=== PATIENT | female | born 1950 | race Caucasian/White ===

== ENCOUNTER → 2017-04-23 | Outpatient (CLI) | payer BC, MEDICARE ==
--- NOTE | 2017-04-23 14:33 | MM ---
Reason for exam: screening (asymptomatic). Last mammogram was performed 3 years and 6 months ago. History: Patient is postmenopausal. Family history of breast cancer in aunt. Took estrogen for 13 years. Physical Findings: A clinical breast exam by your physician is recommended on an annual basis and results should be correlated with mammographic findings. MG 3D Screening Mammo W/Cad Bilateral CC and MLO view(s) were taken. Prior study comparison: October 11, 2013, bilateral digital screening mammo w/CAD. February 02, 2007, bilateral screening mammogram w/CAD. There are scattered fibroglandular densities. There is no discrete abnormality. No significant changes when compared with prior studies. ASSESSMENT: Negative, BI-RAD 1 RECOMMENDATION: Routine screening mammogram of both breasts in 1 year.
== END | disposition home or self-care (01) ==
LOC: RADMAMWWP 07:10
PROVIDERS: ATTEND Family Medicine
DX: Z12.31 Encounter for screening mammogram for malignant neoplasm of breast (principal)
CPT/HCPCS: 77063; G0202

== ENCOUNTER → 2017-05-22 | Outpatient (CLI) | payer MEDICARE ==
[2017-05-22 09:13] LABS: Blood Urea Nitrogen 13 mg/dL (7-17); Non-African American GFR(MDRD) >60 (>60 ml/min/1.73 sqM)
--- NOTE | 2017-05-22 10:39 | MR ---
EXAMINATION TYPE: MR brain and iac wo/w con DATE OF EXAM: 05/22/2017 COMPARISON: NONE HISTORY: acoustic nerve disorder, tinnitus, hearing loss left CONTRAST: Performed utilizing 15 mL intravenous MultiHance gadolinium contrast. TECHNIQUE: Multiplanar, multiecho imaging on a 3.0 Katie magnet is performed through the brain. Atte ntion is paid to the internal auditory canals with thin section imaging. Postcontrast imaging is per formed through the internal auditory canals. FINDINGS: Craniovertebral junction is normal. The pituitary is normal. Diffusion-weighted imaging is performed. No suspicious hyperintensity is present to suggest an acute intracranial infarct or acute ischemic area. Signal within the brain has scattered areas of hyperintensity which are non-specific but could be rel ated to microvascular ischemic changes. These appear greater within the deep white matter of the fron celena lobes and in the coronal radiata bilaterally. Differential diagnosis could include microvascular ischemic change, multiple sclerosis, vasculitis, Lyme disease. Thin section imaging is performed through the internal auditory canals and cerebellar pontine angles. No cerebellar pontine angle masses are evident. The internal auditory canals appear normal without expansion or erosion. Mastoid air cells appear clear. Postcontrast imaging was performed. No suspicious enhancement is evident within the internal audito ry canals or the included portions of the brain. IMPRESSIONS: 1. Normal internal auditory canals. 2. Multiple deep white matter changes in the frontal regions and boateng radiata bilaterally are nonsp ecific but most likely related to microvascular ischemic change.
== END | disposition home or self-care (01) ==
LOC: RADMRIMAIN 08:47
PROVIDERS: ATTEND Otolaryngology
DX: R90.82 White matter disease, unspecified (principal); H93.12 Tinnitus, left ear; H91.92 Unspecified hearing loss, left ear; H93.3X2 Disorders of left acoustic nerve
CPT/HCPCS: 82565; 84520; 70553; 36415; A9577

== ENCOUNTER → 2017-08-18 | Outpatient (CLI) | payer MEDICARE ==
--- NOTE | 2017-08-18 14:13 | US ---
EXAMINATION TYPE: US carotid duplex BILAT DATE OF EXAM: 08/18/2017 COMPARISON: NONE CLINICAL HISTORY: R42 DIZZINESS,H90.0 HEARING LOSS. Dizziness, hearing loss, TIA x few months, no HTN EXAM MEASUREMENTS: RIGHT: Peak Systolic Velocity (PSV) cm/sec ----- Right CCA: 71.2 ----- Right ICA: 103.5 ----- Right ECA: 75.9 ICA/CCA ratio: 1.5 RIGHT: End Diastole cm/sec ----- Right CCA: 25.0 ----- Right ICA: 43.9 ----- Right ECA: 18.6 LEFT: Peak Systolic Velocity (PSV) cm/sec ----- Left CCA: 82.5 ----- Left ICA: 101.8 ----- Left ECA: 64.3 ICA/CCA ratio: 1.2 LEFT: End Diastole cm/sec ----- Left CCA: 27.4 ----- Left ICA: 42.2 ----- Left ECA: 13.4 VERTEBRALS (direction of flow): Right Vertebral: Antegrade Left Vertebral: Antegrade Rhythm: Normal IMPRESSION: Mild plaque noted right bulb. NO evidence of significant stenosis Criteria for Assigning % of Stenosis / Diameter reduction (Estimation based on the indirect measurements of the internal carotid artery velocities (ICA PSV). 1. Normal (no stenosis)=ICA PSV < 125 cm/s: ratio < 2.0: ICA EDV<40 cm/s. 2. Less than 50% stenosis=ICA PSV < 125 cm/s: ratio < 2.0: ICA EDV<40 cm/s. 3. 50 to 69% stenosis=ICA PSV of 125 to 230 cm/s: ration 2.0 ? 4.0: ICA EDV 40-100 cm/s. 4. Greater than 70% stenosis to near occlusion= ICA PSV > 230 cm/s: ratio > 4.0: ICA EDV > 100 cm/s. 5. Near occlusion= ICA PSV velocities may be low or undetectable: variable ratio and ICA EDV. 6. Total occlusion=unable to detect flow.
== END | disposition home or self-care (01) ==
LOC: RADUSWWP 10:14
PROVIDERS: ATTEND Psychiatry & Neurology Neurology
DX: R42 Dizziness and giddiness (principal); H90.0 Conductive hearing loss, bilateral; I77.89 Other specified disorders of arteries and arterioles
CPT/HCPCS: 93880

== ENCOUNTER → 2018-06-24 | Outpatient (CLI) | payer MEDICARE ==
--- NOTE | 2018-06-26 10:05 | MM ---
Reason for exam: screening (asymptomatic). Last mammogram was performed 1 year and 2 months ago. History: Patient is postmenopausal. Family history of breast cancer in aunt. Took estrogen for 13 years. Physical Findings: A clinical breast exam by your physician is recommended on an annual basis and results should be correlated with mammographic findings. MG 3D Screening Mammo W/Cad Bilateral CC and MLO view(s) were taken. Prior study comparison: April 23, 2017, bilateral MG 3d screening mammo w/cad. October 11, 2013, bilateral digital screening mammo w/CAD. There are scattered fibroglandular densities. There is chronic nodularity in the right breast. No significant changes when compared with prior studies. ASSESSMENT: Benign, BI-RAD 2 RECOMMENDATION: Routine screening mammogram of both breasts in 1 year.
== END | disposition home or self-care (01) ==
LOC: RADMAMWWP 14:06
PROVIDERS: ATTEND Family Medicine
DX: Z12.31 Encounter for screening mammogram for malignant neoplasm of breast (principal)
CPT/HCPCS: 77063; 77067

== ENCOUNTER → 2019-07-08 | Outpatient (CLI) | payer MEDICARE ==
--- NOTE | 2019-07-08 16:43 | US ---
EXAMINATION TYPE: US venous doppler duplex LE LT DATE OF EXAM: 07/08/2019 4:25 PM COMPARISON: NONE CLINICAL HISTORY: R60.0 Localized edema. Pt having swelling left leg/ pt has large, palpable lump upp er left leg near groin/ pt states being treated for lymphoma SIDE PERFORMED: Left TECHNIQUE: The lower extremity deep venous system is examined utilizing real time linear array sonog clau with graded compression, doppler sonography and color-flow sonography. VESSELS IMAGED: External Iliac Vein (EIV) Common Femoral Vein Deep Femoral Vein Greater Saphenous Vein * Femoral Vein Popliteal Vein Small Saphenous Vein * Proximal Calf Veins (* superficial vessels) Left Leg: Negative for DVT, Deep Fem vein unable to be visualized due to large cystic lesions within left groin, proximal fem vein only visualized with color doppler due to large cystic mass Two large cystic lesions within left groin 1)= 6.0 x 3.6 cm and 2)= 11.6 x 7.5 x 10.7 cm IMPRESSION: No evidence of deep venous thrombosis in the left femoral vein and popliteal vein. Left g roin region shows irregular large 6 x 4 cm cyst. There is a second large cyst that measures 11.5 x 7. 5 cm.
== END | disposition home or self-care (01) ==
LOC: RADUSWWP 15:57
PROVIDERS: ATTEND Family Medicine
DX: R60.0 Localized edema (principal)

== ENCOUNTER → 2019-07-16 | Outpatient (CLI) | payer MEDICARE ==
[~2019-07-16] MED LIST: SODIUM CHLORIDE 0.9% 500 ML 500 ML in EMPTY BAG 1 BAG IV PRN
[2019-07-16 08:45] VITALS: RESP 16
[2019-07-16 11:21] VITALS: BP 90/55; PULSE 81; TEMP 97.9
== END | disposition home or self-care (01) ==
LOC: PROCWHC3 08:23
PROVIDERS: ATTEND Internal Medicine Hematology & Oncology
DX: D64.81 Anemia due to antineoplastic chemotherapy (principal)
CPT/HCPCS: 86900; 86901; 86850; 86920; 36430; P9016; J1642

== ENCOUNTER 2019-07-17 02:03 | Inpatient (IN) | payer MEDICARE ==
[2019-07-17] MEDS ORDERED: POTASSIUM CHLORIDE 2 MEQ/ML 20 ML VIAL IVPB SCH (05:15)
[2019-07-17] MEDS ORDERED: MECLIZINE 25 MG TAB PO PRN (05:17)
[2019-07-17] MEDS ORDERED: HYDROcodone/APAP 5-325MG 1 EACH TAB PO PRN (05:17)
[2019-07-17] MEDS ORDERED: POTASSIUM CHLORIDE 100 ML IVPB SCH ×2 (06:00)
[2019-07-17] MEDS ORDERED: 0.9% NACL WITH KCL 20 MEQ/L 1,000 ML IV SCH (06:00)
[2019-07-17] MEDS: POTASSIUM CHLORIDE 20 MEQ in WATER FOR INJECTION 1 100ML.BAG IVPB SCH ×4 (06:10→14:23)
[2019-07-17] MEDS: POTASSIUM CHLORIDE ER 20 MEQ TAB.ER PO SCH ×4 (06:14→20:07)
[2019-07-17] MEDS ORDERED: PANTOPRAZOLE 40 MG TABLET PO SCH (07:30)
[2019-07-17 07:46] LABS: HCT 23.3 % (34.0-46.0); HGB 8.1 gm/dL (11.4-16.0); MCH 27.9 pg (25.0-35.0); MCHC 34.7 g/dL (31.0-37.0); MCV 80.4 fL (80.0-100.0); Mean Platelet Volume 7.1; Poikilocytosis Moderate; RDW 15.7 % (11.5-15.5)
[2019-07-17 07:55] LABS: ALT 31 U/L (9-52); AST 19 U/L (14-36); African American GFR (CKD) >90 (>60 ml/min/1.73 sqM); Albumin 2.3 g/dL (3.5-5.0); Alkaline Phosphatase 104 U/L (38-126); Anion Gap 7 mmol/L; Blood Urea Nitrogen 8 mg/dL (7-17); Calcium 7.4 mg/dL (8.4-10.2); Carbon Dioxide 27 mmol/L (22-30); Chloride 94 mmol/L (98-107); Glucose 90 mg/dL (74-99); Potassium 3.1 mmol/L (3.5-5.1); Sodium 128 mmol/L (137-145); Total Bilirubin 1.5 mg/dL (0.2-1.3); Total Protein 4.7 g/dL (6.3-8.2)
[2019-07-17 09:01] LABS: WBC 1.1 k/uL (3.8-10.6)
[2019-07-17] MEDS ORDERED: HYDROmorphone 0.5 MG/0.5 ML SYRINGE IVP PRN (13:26)
[2019-07-17 14:15] LABS: Anisocytosis (M) Present; Band Neutrophils % 2 %; Eosinophils # (M) 0.03 k/uL (0-0.7); Lymphocytes # (M) 0.34 k/uL (1.0-4.8); Monocytes # (M) 0.14 k/uL (0-1.0); Neutrophils % (M) 51 %; Nucleated Red Blood Cells 0 /100 WBC (0-0); Total Cells Counted 100
[2019-07-17 14:18] LABS: Platelet Count 48 k/uL (150-450); Polychromasia Present
[2019-07-17] MEDS: CEFEPIME 2 GM in SODIUM CHLORIDE 0.9% 100 ML IVPB SCH ×2 (14:32→22:48)
[2019-07-17 14:34] LABS: INR 1.1 (<1.2); Prothrombin Time 11.3 sec (9.0-12.0)
[2019-07-17 14:47] LABS: Anisocytosis Slight; Basophils % (A) 0 %; Eosinophils % (A) 1 %; HCT 23.1 % (34.0-46.0); Lymphocytes # (A) 0.3 k/uL (1.0-4.8); Lymphocytes % (A) 21 %; MCH 27.7 pg (25.0-35.0); MCHC 34.6 g/dL (31.0-37.0); MCV 80.1 fL (80.0-100.0); Mean Platelet Volume 7.4; Monocytes # (A) 0.1 k/uL (0-1.0); Monocytes % (A) 5 %; Neutrophils % (A) 70 %; Poikilocytosis Moderate; RBC 2.89 m/uL (3.80-5.40); RDW 16.2 % (11.5-15.5)
[2019-07-17 14:51] LABS: WBC 1.4 k/uL (3.8-10.6)
[2019-07-17 14:52] LABS: Platelet Count 55 k/uL (150-450)
--- NOTE | 2019-07-17 15:10 | XR ---
EXAMINATION TYPE: XR chest 1V portable DATE OF EXAM: 07/17/2019 COMPARISON: NONE HISTORY: Short of breath TECHNIQUE: Single frontal view of the chest is obtained. FINDINGS: Heart and mediastinum are normal. Lungs are clear. There is right central venous catheter with the tip in the superior vena cava. There are chest leads. IMPRESSION: No active cardiopulmonary disease. Normal heart.
[2019-07-17] MEDS: ONDANSETRON 4 MG/2 ML VIAL IVP PRN (15:37)
[2019-07-17] MEDS: HEPARIN SODIUM,PORCINE 5,000 UNIT/ML 1 ML VIAL SQ SCH ×2 (15:40→20:07)
[2019-07-17] MEDS ORDERED: SODIUM CHLORIDE 0.9% 500 ML 500 ML IV ONE (16:23)
[2019-07-17] MEDS: 0.9% NACL WITH KCL 40 MEQ/L 1,000 ML IV SCH ×2 (16:28→22:49)
[2019-07-17 16:41] LABS: Potassium 3.3 mmol/L (3.5-5.1)
--- NOTE | 2019-07-17 17:13 | HP ---
HISTORY AND PHYSICAL CHIEF COMPLAINTS: Low blood pressure and weakness. HISTORY OF PRESENT ILLNESS: This 69-year-old woman with a past medical history of multiple medical problems, including recently diagnosed large B-cell lymphoma, history of appendectomy, history of tonsillectomy, was receiving chemotherapy. The patient had her last chemotherapy on July 07 and subsequently the patient was complaining of weakness and low blood pressure. Patient presented at [facility], where her blood pressure was found to be in the 70s systolic and hemoglobin was 7.2. The patient was transfused. Potassium is 2.3 with hypokalemia. The patient was subsequently transferred to [facility] as a direct admission for further evaluation and treatment. The patient received one unit of transfusion as an outpatient and subsequently 2 units of blood transfusion. The current hemoglobin is 8.1. White count is 1.1. There is no history of any fever, rigor or chills. No history of headache, loss of consciousness, seizures, chest pain, palpitations at this time PAST MEDICAL HISTORY: 1. Recent diagnosis of large B-cell lymphoma with chemotherapy. 2. History of appendectomy. 3. Hysterectomy. HOME MEDICATIONS: 1. Loratadine 10 mg p.o. daily. 2. Probiotic 1 p.o. daily. 3. Antivert 25 mg t.i.d. p.r.n. 4. Ibuprofen 200 mg q.4 p.r.n. 5. Aspirin 81 mg p.o. daily. 6. Augmentin 875 mg 1 p.o. b.i.d. ALLERGIES: NONE. FAMILY HISTORY: No history of heart disease or strokes in the family. SOCIAL HISTORY: Previous history of smoking. No current smoking or alcohol intake. REVIEW OF SYSTEMS: ENT: No diminished hearing. No diminished vision. CARDIOVASCULAR SYSTEM: No angina, palpitations. RESPIRATORY SYSTEM: No cough, hemoptysis. GI: No nausea, vomiting. : No dysuria or retention. NERVOUS SYSTEM: As mentioned earlier. ALLERGY/IMMUNOLOGY: No asthma, hayfever. MUSCULOSKELETAL: As mentioned earlier. HEMATOLOGY/ONCOLOGY: As mentioned earlier. ENDOCRINE: No diabetes, hypothyroidism. CONSTITUTIONAL: As mentioned earlier. DERMATOLOGY: Negative. RHEUMATOLOGY: Negative. PSYCHIATRY: As mentioned earlier. PHYSICAL EXAMINATION: Patient alert and oriented x3. Pulse 73, blood pressure 91/53, respiration 18, temperature 97.8, pulse ox 98% on room air. HEENT: Conjunctivae normal. Oral mucosa moist. NECK: No jugular venous distention. No carotid bruit. No lymph node enlargement. CARDIOVASCULAR SYSTEM: S1, S2 muffled. No S3. No S4. RESPIRATORY SYSTEM: Breath sounds diminished at the bases. Scattered rhonchi and crackles. ABDOMEN: Soft, non-tender. No mass palpable. LEGS: No edema. No swelling. NERVOUS SYSTEM: Higher functions as mentioned earlier. Moves all 4 limbs. No focal motor or sensory deficit. LYMPHATICS: No lymph node palpable in neck, axillae or groin. SKIN: No ulcer, rash, bleeding. JOINTS: No active deforming arthropathy. LABS: WBC 1.4, hemoglobin 8, platelets 55. Magnesium is 1.5. ASSESSMENT: 1. Hypotension and weakness, possibly neutropenic sepsis. 2. Severe pancytopenia, possibly secondary to chemotherapy. 3. Severe leukopenia and neutropenia. 4. Hyponatremia. 5. Hypokalemia. 6. History of non-Hodgkin's lymphoma, B-cell lymphoma, on chemotherapy. 7. Hypomagnesemia. 8. Hypotension for evaluation. 9. Remote history of nicotine dependence. RECOMMENDATIONS AND DISCUSSION: In this 69-year-old woman who presented with multiple complex medical issues, we will monitor the patient closely, continue the current medications, continue symptomatic treatment, continue the broad-spectrum IV antibiotics, cultures. I recommend hematology/oncology and infectious disease evaluations. Also check a random cortisol. Prognosis is guarded because of multiple complex medical issues. Further recommendations to follow. IV fluids, bolus fluids to maintain the blood pressure. DVT prophylaxis. Proton pump inhibitors. Further recommendations to follow. MMODL / IJN: [id number] /
[2019-07-17] MEDS ORDERED: Potassium Replacement Protocol 1 EACH MISC MISCELLANE PRN (18:14)
[2019-07-17 19:50] LABS: Appearance,Urine Clear (Clear); Bilirubin,Urine Negative (Negative); Blood,Urine Negative (Negative); Color,Urine Yellow; Glucose,Urine (UA) Negative (Negative); Ketones,Urine Negative (Negative); Leukocyte Esterase,Urine Negative (Negative); Nitrite,Urine Negative (Negative); PH, Urine 6.5 (5.0-8.0); Protein,Urine Negative (Negative); Specific Gravity,Urine 1.006 (1.001-1.035); Urobilinogen,Urine <2.0 mg/dL (<2.0)
[2019-07-17] MEDS: PANTOPRAZOLE 40 MG/10 ML VIAL IVP SCH (20:07)
[2019-07-17] MEDS: TEMAZEPAM 15 MG CAP PO PRN (22:47)
--- NOTE | 2019-07-18 00:21 | P.CONS ---
History of Present Illness - Reason for Consult Consult date: 07/17/19 NHL on chemotherapy, hypotension, cytopenias - History of Present Illness Ms. Arredondo is a 69 yr old white female, in overall good health at baseline. The patient had felt a lump just above her right collarbone, as well as another lump in the left upper thigh, in early 05/17. These seem to increased progressively in size. Around the same time she also developed progressive symptoms of fatigue, sweats, and decreased appetite. She was seen by her primary care physician and referred to Dr. benson. She had an excisional biopsy on 05/14/19 at both sites. The right supraclavicular node showed replacement by necrotic nonviable tissue possible diffuse large B-cell lymphoma. 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 Flow cytometric analysis confirmed the presence of CD19, CD20 and CD10 positive lymphocytic population. MYC testing was ordered and came back negative ruling out doublet/triple hit pathology. The patient had a PET scan done on 06/15/19, they showed multiple areas of uptake, including bilateral submandibular, bilateral supraclavicular, bilateral axillary, mediastinal, spleen, retrocrural and retroperitoneal as well as pelvic and inguinal. Multiple hypermetabolic foci were seen along the sternum ,. Osseous involvement was also noted in the left anterior mid rib and right humeral head. The patient was seen in the office initially on 06/18/19. She underwent port placement and echocardiogram and then started Rituxan-CHOP on 07/17/19. She is status post 1 cycle. The time of her initial consult, the patient had already had a significant drop in her for status, and had developed significant anemia due to the lymphoma. Since starting chemotherapy, her counts have declined further, as expected and she has required transfusion support. She has also been noted to be hypotensive off-and-on. The patient was noted to be hypotensive again while receiving a blood transfusion, on 07/16/19. There was significant weakness and fatigue, when there was no major change from her baseline. She received additional fluids after transfusion and was sent home. However at home her blood pressure remained low, going down into the 60s systolic according to her. She therefore came back to the emergency room where she was also noted to have marked neutropenia, and other electrolyte abnormalities. She was therefore admitted for further management Review of Systems Constitutional: Reports fatigue, Reports weakness Eyes: denies blurred vision, denies pain Ears: deny: decreased hearing, ear discharge, earache, tinnitus Ears, nose, mouth and throat: Denies headache, Denies sore throat Cardiovascular: Reports decreased exercise tolerance Respiratory: Denies cough Gastrointestinal: Reports diarrhea Genitourinary: Denies dysuria, Denies hematuria Menstruation: Reports postmenopausal Musculoskeletal: Reports muscle weakness Integumentary: Denies pruritus, Denies rash Neurological: Reports weakness Psychiatric: Denies anxiety, Denies depression Endocrine: Reports fatigue, Reports weight change Hematologic/Lymphatic: Reports as per HPI Past Medical History Past Medical History: Cancer Additional Past Medical History / Comment(s): Large B-cell Lymphoma History of Any Multi-Drug Resistant Organisms: None Reported Past Surgical History: Appendectomy, Hysterectomy, Tonsillectomy Past Anesthesia/Blood Transfusion Reactions: No Reported Reaction Past Psychological History: No Psychological Hx Reported Smoking Status: Former smoker Medications and Allergies Home Medications Medication Instructions Recorded Confirmed Type Aspirin [Adult Low Dose Aspirin EC] 81 mg PO DAILY 07/06/19 07/17/19 History Ibuprofen 200 mg PO Q4H PRN 07/06/19 07/17/19 History L.acidoph,Paracasei, B.lactis 1 cap PO DAILY 07/06/19 07/17/19 History [Probiotic] Loratadine 10 mg PO DAILY 07/06/19 07/17/19 History Meclizine [Antivert] 25 mg PO TID PRN 07/06/19 07/17/19 History Amoxic-Pot Clav 875-125Mg 1 tab PO BID 07/17/19 07/17/19 History [Augmentin 875-125] Allergies Allergy/AdvReac Type Severity Reaction Status Date / Time No Known Allergies Allergy Verified 07/17/19 08:47 Physical Exam Vitals: Vital Signs Temp Pulse Resp BP BP BP BP 07/17/19 23:22 74 18 07/17/19 23:20 98.0 F 74 18 108/56 07/17/19 20:00 98.2 F 75 18 115/57 113/56 101/55 07/17/19 17:32 116/63 114/62 87/50 07/17/19 16:00 75 17 87/50 10/19/19 12:00 77 17 82/51 10/19/19 08:30 97.8 F 73 18 91/53 07/17/19 05:33 90/53 07/17/19 04:49 97.8 F 73 18 82/51 07/17/19 04:40 73 18 Pulse Ox 07/17/19 23:22 07/17/19 23:20 98 07/17/19 20:00 96 07/17/19 17:32 07/17/19 16:00 96 07/17/19 12:00 96 07/17/19 08:30 98 07/17/19 05:33 07/17/19 04:49 97 07/17/19 04:40 Intake and Output 07/17/19 07/17/19 07/18/19 14:59 22:59 06:59 Intake Total 1500 360 800 Balance 1500 360 800 Intake: Intake, IV Titration 900 800 Amount 0.9% NaCl with KCl 20 Meq 700 /l 1,000 ml @ 100 mls/hr IV .Q10H PRIETO Rx#: [id number] 0.9% NaCl with KCl 40 Meq 800 /l 1,000 ml @ 100 mls/hr IV .Q10H PRIETO Rx#: [id number] Cefepime 2 gm In Sodium 100 Chloride 0.9% 100 ml @ 200 mls/hr IVPB Q8HR PRIETO Rx#:[id number] Potassium Chloride 100 ml 100 @ 50 mls/hr IVPB Q2H PRIETO Rx#:[id number] Oral 600 360 Other: Voiding Method Toilet Toilet # Voids 1 1 1 # Bowel Movements 1 - Constitutional General appearance: no acute distress - EENT Eyes: EOMI, PERRLA ENT: hearing grossly normal, normal oropharynx - Neck Neck: lymphadenopathy Thyroid: bilateral: normal size - Respiratory Respiratory: bilateral: CTA - Cardiovascular Rhythm: regular Heart sounds: normal: S1, S2 - Gastrointestinal General gastrointestinal: normal bowel sounds, soft - Integumentary Integumentary: normal - Neurologic Neurologic: CNII-XII intact - Musculoskeletal Musculoskeletal: generalized weakness, strength equal bilaterally - Psychiatric affect slightly slow Psychiatric: A&O x's 3 Results CBC & Chem 7: 07/17/19 14:08 07/17/19 16:19 Labs: Abnormal Lab Results - Last 24 Hours (Table) 07/17/19 07/17/1919 Range/Units 06:57 06:57 14:08 WBC 1.1 L* (3.8-10.6) k/uL RBC 2.90 L (3.80-5.40) m/uL Hgb 8.1 L D (11.4-16.0) gm/dL Hct 23.3 L (34.0-46.0) % RDW 15.7 H (11.5-15.5) % Plt Count 48 L D (150-450) k/uL Neutrophils # (1.3-7.7) k/uL Neutrophils # (Manual) 0.50 L (1.3-7.7) k/uL Lymphocytes # (1.0-4.8) k/uL Lymphocytes # (Manual) 0.34 L (1.0-4.8) k/uL Sodium 128 L (137-145) mmol/L Potassium 3.1 L (3.5-5.1) mmol/L Chloride 94 L (98-107) mmol/L Creatinine 0.38 L (0.52-1.04) mg/dL Calcium 7.4 L (8.4-10.2) mg/dL Magnesium 1.4 L (1.6-2.3) mg/dL Total Bilirubin 1.5 H (0.2-1.3) mg/dL Total Protein 4.7 L (6.3-8.2) g/dL Albumin 2.3 L (3.5-5.0) g/dL 07/17/19 07/17/19 Range/Units 14:08 16:19 WBC 1.4 L* (3.8-10.6) k/uL RBC 2.89 L (3.80-5.40) m/uL Hgb 8.0 L (11.4-16.0) gm/dL Hct 23.1 L (34.0-46.0) % RDW 16.2 H (11.5-15.5) % Plt Count 55 L (150-450) k/uL Neutrophils # 1.0 L (1.3-7.7) k/uL Neutrophils # (Manual) (1.3-7.7) k/uL Lymphocytes # 0.3 L (1.0-4.8) k/uL Lymphocytes # (Manual) (1.0-4.8) k/uL Sodium (137-145) mmol/L Potassium 3.3 L (3.5-5.1) mmol/L Chloride (98-107) mmol/L Creatinine (0.52-1.04) mg/dL Calcium (8.4-10.2) mg/dL Magnesium (1.6-2.3) mg/dL Total Bilirubin (0.2-1.3) mg/dL Total Protein (6.3-8.2) g/dL Albumin (3.5-5.0) g/dL Assessment and Plan (1) Hypotension Narrative/Plan: Etiology of this is somewhat unclear. Though hypertension has been fairly significant off-and-on, there has not been much change in the patient's actual s ymptoms from baseline. Her baseline blood pressure has often been in the 80s- 90s range. Lower blood pressures have been noted when the patient has been anemic and required blood transfusion. It didn't seems to improve back to baseline over 24-48 hours after transfusion and hydration This is more likely due to symptoms of lymphoma causing increase permeability and third spacing. The patient does not appear to have any evidence of infection. He has received blood transfusion, and hydration with improvement in blood pressure already. - Cortisol level - Assuming she remains stable, she can be discharged wheSnever felt to be okay by the admitting service Current Visit: Yes Status: Acute Code(s): I95.9 - HYPOTENSION, UNSPECIFIED SNOMED Code(s): 76607157 (2) Electrolyte abnormality Narrative/Plan: The patient has low sodium and potassium, which most likely represents dehydration, as she has been having diarrhea. Oral intake had been diminished significantly bleeding upper diagnosis low has been improving since. The papi ent is being supplemented with IV fluids and potassium. He is also being monitored as an outpatient and will be supplemented as needed Current Visit: Yes Status: Acute Code(s): E87.8 - OTH DISORDERS OF ELECT ROLYTE AND FLUID BALANCE, NEC SNOMED Code(s): 349545611 (3) Pancytopenia Narrative/Plan: Due to underlying lymphoma, as well as chemotherapy effect. Posttransfusion hemoglobin is in a safe range. Platelets are 70,000, also in a safe range. As a bruise he remains diminished about 10 days post chemotherapy, she will be started on growth factors Current Visit: Yes Status: Acute Code(s): D61.818 - OTHER PANCYTOPENIA SNOMED Code(s): 063696697 (4) Non-Hodgkin lymphoma Narrative/Plan: Diagnostic and therapeutic circumstances as described. The patient will continue on chemotherapy as an outpatient, assuming acute complains are sufficiently improved. I would anticipate that her current issues are likely to improve, as the patient seems degree of remission with her lymphoma with treatment Current Visit: Yes Status: Acute Code(s): C85.90 - NON-HODGKIN LYMPHOMA, UNSPECIFIED, UNSPECIFIED SITE SNOMED Code(s): 182750392
[2019-07-18 06:42] LABS: Anisocytosis Slight; Basophils % (A) 1 %; Eosinophils % (A) 1 %; HCT 24.9 % (34.0-46.0); HGB 8.2 gm/dL (11.4-16.0); Hypochromasia Slight; Lymphocytes # (A) 0.3 k/uL (1.0-4.8); Lymphocytes % (A) 13 %; MCH 27.4 pg (25.0-35.0); MCHC 33.1 g/dL (31.0-37.0); MCV 82.8 fL (80.0-100.0); Mean Platelet Volume 7.4; Monocytes # (A) 0.1 k/uL (0-1.0); Monocytes % (A) 6 %; Neutrophils # (A) 1.6 k/uL (1.3-7.7); Neutrophils % (A) 78 %; Poikilocytosis Moderate; RBC 3.01 m/uL (3.80-5.40); RDW 16.9 % (11.5-15.5); WBC 2.1 k/uL (3.8-10.6)
[2019-07-18 06:51] LABS: Platelet Count 96 k/uL (150-450)
[2019-07-18 07:00] LABS: African American GFR (CKD) >90 (>60 ml/min/1.73 sqM); Anion Gap 5 mmol/L; Blood Urea Nitrogen 3 mg/dL (7-17); Calcium 7.4 mg/dL (8.4-10.2); Carbon Dioxide 25 mmol/L (22-30); Chloride 104 mmol/L (98-107); Glucose 80 mg/dL (74-99); Potassium 3.6 mmol/L (3.5-5.1); Sodium 134 mmol/L (137-145)
[2019-07-18] MEDS: PANTOPRAZOLE 40 MG/10 ML VIAL IVP SCH ×2 (07:57→20:08)
[2019-07-18] MEDS: HEPARIN SODIUM,PORCINE 5,000 UNIT/ML 1 ML VIAL SQ SCH ×2 (07:57→20:07)
[2019-07-18] MEDS: CEFEPIME 2 GM in SODIUM CHLORIDE 0.9% 100 ML IVPB SCH ×3 (07:58→23:47)
[2019-07-18] MEDS: FILGRASTIM-SNDZ 300 MCG/0.5 ML SYRINGE SQ SCH (07:59)
[2019-07-18] MEDS: 0.9% NACL WITH KCL 40 MEQ/L 1,000 ML IV SCH ×2 (08:53→20:10)
--- NOTE | 2019-07-18 09:00 | ECHOF ---
Referral Reason:chf MEASUREMENTS -------- HEIGHT: 167.6 cm WEIGHT: 68.5 kg BP: 91/53 IVSd: 1.2 cm (0.6 - 1.1) LVIDd: 4.4 cm (3.9 - 5.3) LVPWd: 1.1 cm (0.6 - 1.1) IVSs: 1.5 cm LVIDs: 2.9 cm LVPWs: 1.5 cm LA Diam: 4.1 cm (2.7 - 3.8) RVIDd: 3.3 cm (< 3.3) LAESV Index (A-L): 36.06 ml/m Ao Diam: 3.7 cm (2.0 - 3.7) AV Cusp: 2.4 cm (1.5 - 2.6) EPSS: 0.6 cm MV E Dami: 0.94 m/s MV DecT: 193 ms MV A Dami: 0.97 m/s MV E/A Ratio: 0.97 RAP: 5.00 mmHg RVSP: 27.93 mmHg MV EF SLOPE: 84.40 mm/s (70 - 150) MV EXCURSION: 16.31 mm (> 18.000) TAPSE: 20.50 mm FINDINGS -------- Sinus rhythm. This was a technically good study. The left ventricular size is normal. There is borderline concentric left ventricular hypertrophy. Overall left ventricular systolic function is normal with, an EF between 60 - 65 %. The diastolic filling pattern is normal for the age of the patient 11.88. Small echogenic structure in LV The right ventricle is mildly enlarged. LA is moderately dilated 34-39 ml/m2 The right atrium is normal in size. Prominent Eustachian valve Interatrial and interventricular septum intact. There is mild aortic valve sclerosis. The mitral valve leaflets are mildly thickened. Mild mitral annular calcification present. Mild m itral regurgitation is present. Mild tricuspid regurgitation present. Right ventricular systolic pressure is normal at < 35 mmHg. Trace/mild (physiologic) pulmonic regurgitation. The aortic root size is normal. Normal inferior vena cava with normal inspiratory collapse consistent with estimated right atrial pre ssure of 5 mmHg. There is no pericardial effusion. CONCLUSIONS -------- 1. Sinus rhythm. 2. This was a technically good study. 3. The left ventricular size is normal. 4. There is borderline concentric left ventricular hypertrophy. 5. Overall left ventricular systolic function is normal with, an EF between 60 - 65 %. 6. The diastolic filling pattern is normal for the age of the patient 11.88 7. Small echogenic structure in LV 8. The right ventricle is mildly enlarged. 9. LA is moderately dilated 34-39 ml/m2 10. The right atrium is normal in size. 11. Prominent Eustachian valve 12. Interatrial and interventricular septum intact. 13. There is mild aortic valve sclerosis. 14. The mitral valve leaflets are mildly thickened. 15. Mild mitral annular calcification present. 16. Mild mitral regurgitation is present. 17. Mild tricuspid regurgitation present. 18. Right ventricular systolic pressure is normal at < 35 mmHg. 19. Trace/mild (physiologic) pulmonic regurgitation. 20. The aortic root size is normal. 21. Normal inferior vena cava with normal inspiratory collapse consistent with estimated right atrial pressure of 5 mmHg. 22. There is no pericardial effusion. AIR CONDITIONING ENGINEER: Savanna Bishop RDCS
[2019-07-18] MEDS ORDERED: Magnesium Replacement Protocol 1 EACH MISC MISCELLANE PRN (11:27)
[2019-07-18] MEDS: MAGNESIUM SULFATE-D5W PMX 1 GM in DEXTROSE/WATER 1 100ML.BAG IVPB SCH ×2 (11:56→13:04)
[2019-07-18] MEDS: ONDANSETRON 4 MG/2 ML VIAL IVP PRN (16:46)
--- NOTE | 2019-07-18 20:21 | PN ---
PROGRESS NOTE DATE OF SERVICE: 07/18/2019 This 69-year-old woman was admitted with hypotension, weakness, is being closely monitored. Suspect neutropenic sepsis. Patient on broad spectrum IV antibiotics. Cultures are negative. After transfusion hemoglobin is 8.2 at this time. White count is also 2.1, platelets are 226. Dr. Alcala is following the patient closely. PAST MEDICAL HISTORY: Reviewed. REVIEW OF SYSTEMS: CARDIOVASCULAR: No angina. RESPIRATORY: As mentioned earlier. : No hematuria. NERVOUS SYSTEM: Generalized weakness. CURRENT MEDICATIONS: 1. [place] 5 mg q.6h p.r.n. 2. Cefepime 2 g IV q.8h. 3. Zarxio 300 mcg daily. 4. Heparin 5 subcu b.i.d. 5. Dilaudid 0.5 mg q.6. 6. Antivert 25 mg p.o. daily. 7. Potassium, magnesium protocol. 8. Protonix. 9. Restoril. PHYSICAL EXAM: Patient is alert and oriented x3. Pulse is 78, blood pressure 113/50, respiration 18, temperature 97.9, pulse ox 97% on room air. HEENT: Conjunctivae normal. Oral mucosa moist. NECK: No jugular venous distention. No lymph node enlargement. CARDIOVASCULAR: S1, S2. RESPIRATORY: Diminished breath sounds at the bases. Bilateral scattered rhonchi and crackles. ABDOMEN: Soft, nontender. LEGS: No swelling. NERVOUS SYSTEM: No focal deficits. LABS: At this time shows WBC 2.1, hemoglobin is 8.2, platelets 96. Sodium 134. ASSESSMENT: 1. Hypotension and weakness, possibly neutropenic sepsis. 2. Severe pancytopenia, possibly secondary to chemotherapy. 3. Severe leukopenia and neutropenia. 4. Hyponatremia. 5. Hypokalemia. 6. History of non-Hodgkin lymphoma, B-cell lymphoma on chemotherapy. 7. Hypomagnesemia. 8. Remote history of nicotine dependence. RECOMMENDATIONS AND DISCUSSION: I recommend to continue current management and continue symptomatic treatment, continue broad-spectrum IV antibiotics, continue with IV fluids. Repeat labs. White count has been improving and hemoglobin is stable as mentioned earlier. Closely follow with Dr. Alcala. Prognosis guarded because of multiple complex medical issues. Increase ambulation. Discussed with the patient. DVT prophylaxis. Further recommendations to follow. MMODL / IJN: [id number] /
--- NOTE | 2019-07-18 22:01 | P.CONS ---
History of Present Illness - Reason for Consult Consult date: 07/18/19 - Chief Complaint Weakness - History of Present Illness Pleasant 69-year-old woman who has a very pertinent recent past medical history in that she during the summer noticed evidence of lumps on her body. One was on the right collarbone and was on the left side. These increased in size the papi ent was symptomatic with fatigue chills and sweats decreased appetite and some weight loss. 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 Her PET scan that was done in May showed evidence of multiple areas of involvement including the spleen and there was also bony involvement to the left anterior ribs and right humeral head. The patient was initiated to her course of Rituxan -CHOP. The patient presents with extreme weakness and generalized malaise and evidence of chemotherapy and possibly disease induced neutropenia. She feels better since coming to Hospital receiving fluids and having her electrolytes replaced. She denies fevers chills rigors or sweats at this time Review of Systems Patient has significant fatigue and malaise HEENT:Denies headache or acute visual change. Denies sinus or mouth discomforts. Denies neck stiffness or pain. Denies significant oral cavity pain. Denies difficulty on swallowing. Lungs: She has felt short of breath but however she is not evidence of costovertebral production or hemoptysis Cardiovascular: Denies significant shortness of breath, chest pain, chest wall pain, orthopnea, dyspnea on exertion, syncope Gastrointestinal:Denies nausea, vomiting, diarrhea, constipation, hematemesis, melena, hematochezia. No no significant change of bowel habit noticed. Musculoskeletal: denies significant myalgias or arthralgias. No new joint swelling. Denies new back pain. Skin: Denies new rash or lesions. No new ulcers or wounds are related.. Neuro: Denies headache or visual change. Denies any new onset weakness or difficulty with ambulation. Denies falls or seizures. Psychiatric: Very concerned with her recent medical diagnosis Endocrine: Severe fatigue and started to have some weight loss Past Medical History Past Medical History: Cancer Additional Past Medical History / Comment(s): Large B-cell Lymphoma History of Any Multi-Drug Resistant Organisms: None Reported Past Surgical History: Appendectomy, Hysterectomy, Tonsillectomy Past Anesthesia/Blood Transfusion Reactions: No Reported Reaction Past Psychological History: No Psychological Hx Reported Additional Psychological History / Comment(s): She is a retired executive secretary. 2 pet cats. History of travel nothing is recent. Stopped smoking years ago. Smoking Status: Former smoker Medications and Allergies Home Medications and Allergies Comment(s): Current Medications Hydrocodone Bitart/Acetaminophen (Liberal 5-325) 1 each PO Q6HR PRN PRN Reason: Moderate to Severe Pain Filgrastim (Zarxio) 300 mcg SQ DAILY [facility] Last Admin: 07/18/19 07:59 Dose: 300 mcg Documented by: Heparin Sodium (Porcine) (Heparin) 5,000 unit SQ Q12HR PRIETO Last Admin: 07/18/19 20:07 Dose: 5,000 unit Documented by: Hydromorphone HCl (Dilaudid) 0.5 mg IVP Q6HR PRN PRN Reason: Severe Pain Cefepime HCl 2 gm/ Sodium (Chloride) 100 mls @ 200 mls/hr IVPB Q8HR [facility] Last Admin: 07/18/19 15:27 Dose: 200 mls/hr Documented by: Potassium Chloride/Sodium Chloride (Ns-Kcl 40 Meq/L Iv Solution) 1,000 mls @ 100 mls/hr IV .Q10H [facility] Last Admin: 07/18/19 20:10 Dose: 100 mls/hr Documented by: Meclizine HCl (Antivert) 25 mg PO DAILY PRN PRN Reason: dizziness Miscellaneous Information (Potassium Per Protocol) 1 each MISCELLANE DAILY PRN; Protocol PRN Reason: Per Protocol Miscellaneous Information (Magnesium Per Protocol) 1 each MISCELLANE DAILY PRN; Protocol PRN Reason: Per Protocol Ondansetron HCl (Zofran) 4 mg IVP Q6HR PRN PRN Reason: Nausea And Vomiting Last Admin: 07/18/19 16:46 Dose: 4 mg Documented by: Pantoprazole Sodium (Protonix) 40 mg IVP BID PRIETO Last Admin: 07/18/19 20:08 Dose: 40 mg Documented by: Temazepam (Restoril) 15 mg PO HS PRN PRN Reason: Insomnia Last Admin: 07/17/19 22:47 Dose: 15 mg Documented by: Home Medications Medication Instructions Recorded Confirmed Type Aspirin [Adult Low Dose Aspirin EC] 81 mg PO DAILY 07/06/19 07/17/19 History Ibuprofen 200 mg PO Q4H PRN 07/06/19 07/17/19 History L.acidoph,Paracasei, B.lactis 1 cap PO DAILY 07/06/19 07/17/19 History [Probiotic] Loratadine 10 mg PO DAILY 07/06/19 07/17/19 History Meclizine [Antivert] 25 mg PO TID PRN 07/06/19 07/17/19 History Amoxic-Pot Clav 875-125Mg 1 tab PO BID 07/17/19 07/17/19 History [Augmentin 875-125] Allergies Allergy/AdvReac Type Severity Reaction Status Date / Time No Known Allergies Allergy Verified 07/17/19 08:47 Physical Exam Vitals: Vital Signs Temp Pulse Resp BP BP BP Pulse Ox 07/18/19 20:00 99.0 F 84 18 91/52 95 07/18/19 17:00 132/57 126/57 109/57 07/18/19 16:10 97.3 F L 84 18 132/57 126/57 109/57 97 07/18/19 12:25 78 18 113/56 100 07/18/19 08:05 97.9 F 86 17 128/56 97 07/18/19 03:40 74 18 07/18/19 03:38 98.1 F 74 18 111/56 98 07/17/19 23:22 74 18 07/17/19 23:20 98.0 F 74 18 108/56 98 Intake and Output 07/18/19 07/18/19 07/18/19 06:59 14:59 22:59 Intake Total 800 1120 1360 Balance 800 1120 1360 Intake: Intake, IV Titration 873 024 3135 Amount 0.9% NaCl with KCl 20 Meq 300 /l 1,000 ml @ 100 mls/hr IV .Q10H PRIETO Rx#: [id number] 0.9% NaCl with KCl 40 Meq 800 700 /l 1,000 ml @ 100 mls/hr IV .Q10H PRIETO Rx#: [id number] Cefepime 2 gm In Sodium 100 100 Chloride 0.9% 100 ml @ 200 mls/hr IVPB Q8HR PRIETO Rx#:[id number] Magnesium Sulfate-D5w Pmx 200 1 gm In Dextrose/Water 1 100ml.bag @ 100 mls/hr IVPB Q1H PRIETO Rx#: [id number] Oral 720 360 Other: Voiding Method Toilet Toilet # Voids 1 3 Weight 66.6 kg Pleasant 69-year-old woman fatigued without any acute distress HEENT: Anicteric conjunctiva are pink and moist nasal mucosa grossly intact without significant lesions, there is no thrush. Neck: The neck is supple without significant lymphadenopathy or thyromegaly. Lungs: Symmetrical air entry few scattered wheezes no bronchial sounds in all dullness or egophony Heart: Regular rate and rhythm with an audible S1-S2, soft S4. There is no significant murmur click or rub, PMI was nondisplaced. Abdomen: Positive bowel sounds soft and nontender without palpable masses or organomegaly. There was no guarding or rebound. Extremities: The upper extremities have excellent pulses they are symmetric, no significant petechiae or telangiectasia. No splinter hemorrhages were noted. The lower extremities are free from significant edema. The peripheral pulses were 2+ and symmetric. Neuro: Awake alert oriented to person place and time. There are no acute new gross focal sensory motor deficits. Results CBC & Chem 7: 07/18/19 06:25 07/18/19 06:25 Labs: Abnormal Lab Results - Last 24 Hours (Table) 07/18/19 07/18/19 07/18/19 Range/Units 06:25 06:25 06:25 WBC 2.1 L (3.8-10.6) k/uL RBC 3.01 L (3.80-5.40) m/uL Hgb 8.2 L (11.4-16.0) gm/dL Hct 24.9 L (34.0-46.0) % RDW 16.9 H (11.5-15.5) % Plt Count 96 L D (150-450) k/uL Lymphocytes # 0.3 L (1.0-4.8) k/uL Sodium 134 L (137-145) mmol/L BUN 3 L (7-17) mg/dL Creatinine 0.47 L (0.52-1.04) mg/dL Calcium 7.4 L (8.4-10.2) mg/dL Magnesium 1.5 L (1.6-2.3) mg/dL Microbiology - Last 24 Hours (Table) 07/17/19 14:08 Blood Culture - Preliminary Blood No Growth after 24 hours 07/17/19 19:00 Urine Culture - Preliminary Urine,Voided Laboratory Results WBC 2.1 k/uL (3.8-10.6) L 07/18/19 06:25 RBC 3.01 m/uL (3.80-5.40) L 07/18/19 06:25 Hgb 8.2 gm/dL (11.4-16.0) L 07/18/19 06:25 Hct 24.9 % (34.0-46.0) L 07/18/19 06:25 MCV 82.8 fL (80.0-100.0) 07/18/19 06:25 MCH 27.4 pg (25.0-35.0) 07/18/19 06:25 MCHC 33.1 g/dL (31.0-37.0) 07/18/19 06:25 RDW 16.9 % (11.5-15.5) H 07/18/19 06:25 Plt Count 96 k/uL (150-450) L D 07/18/19 06:25 Neutrophils % 78 % 07/18/19 06:25 Neutrophils % (Manual) 51 % 07/17/19 06:57 Band Neutrophils % 2 % 07/17/19 06:57 Lymphocytes % 13 % 07/18/19 06:25 Lymphocytes % (Manual) 31 % 07/17/19 06:57 Monocytes % 6 % 07/18/19 06:25 Monocytes % (Manual) 13 % 07/17/19 06:57 Eosinophils % 1 % 07/18/19 06:25 Eosinophils % (Manual) 3 % 07/17/19 06:57 Basophils % 1 % 07/18/19 06:25 Neutrophils # 1.6 k/uL (1.3-7.7) 07/18/19 06:25 Neutrophils # (Manual) 0.50 k/uL (1.3-7.7) L 07/17/19 06:57 Lymphocytes # 0.3 k/uL (1.0-4.8) L 07/18/19 06:25 Lymphocytes # (Manual) 0.34 k/uL (1.0-4.8) L 07/17/19 06:57 Monocytes # 0.1 k/uL (0-1.0) 07/18/19 06:25 Monocytes # (Manual) 0.14 k/uL (0-1.0) 07/17/19 06:57 Eosinophils # 0.0 k/uL (0-0.7) 07/18/19 06:25 Eosinophils # (Manual) 0.03 k/uL (0-0.7) 07/17/19 06:57 Basophils # 0.0 k/uL (0-0.2) 07/18/19 06:25 Nucleated RBCs 0 /100 WBC (0-0) 07/17/19 06:57 Manual Slide Review Performed 07/17/19 06:57 Polychromasia Present 07/17/19 06:57 Hypochromasia Slight 07/18/19 06:25 Poikilocytosis Moderate 07/18/19 06:25 Anisocytosis Slight 07/18/19 06:25 Anisocytosis (manual) Present 07/17/19 06:57 PT 11.3 sec (9.0-12.0) 07/17/19 14:08 INR 1.1 (<1.2) 07/17/19 14:08 Sodium 134 mmol/L (137-145) L 07/18/19 06:25 Potassium 3.6 mmol/L (3.5-5.1) 07/18/19 06:25 Chloride 104 mmol/L (98-107) 07/18/19 06:25 Carbon Dioxide 25 mmol/L (22-30) 07/18/19 06:25 Anion Gap 5 mmol/L 07/18/19 06:25 BUN 3 mg/dL (7-17) L 07/18/19 06:25 Creatinine 0.47 mg/dL (0.52-1.04) L 07/18/19 06:25 Est GFR (CKD-EPI)AfAm >90 (>60 ml/min/1.73 sqM) 07/18/19 06:25 Est GFR (CKD-EPI)NonAf >90 (>60 ml/min/1.73 sqM) 07/18/19 06:25 Glucose 80 mg/dL (74-99) 07/18/19 06:25 Plasma Lactic Acid Saw 0.9 mmol/L (0.7-2.0) 07/17/19 16:19 Calcium 7.4 mg/dL (8.4-10.2) L 07/18/19 06:25 Magnesium 1.5 mg/dL (1.6-2.3) L 07/18/19 06:25 Total Bilirubin 1.5 mg/dL (0.2-1.3) H 07/17/19 06:57 AST 19 U/L (14-36) 07/17/19 06:57 ALT 31 U/L (9-52) 07/17/19 06:57 Alkaline Phosphatase 104 U/L (38-126) 07/17/19 06:57 Troponin I <0.012 ng/mL (0.000-0.034) 07/17/19 14:08 Total Protein 4.7 g/dL (6.3-8.2) L 07/17/19 06:57 Albumin 2.3 g/dL (3.5-5.0) L 07/17/19 06:57 Cortisol 11 ug/dL 07/17/19 16:19 Urine Color Yellow 07/17/19 19:00 Urine Appearance Clear (Clear) 07/17/19 19:00 Urine pH 6.5 (5.0-8.0) 07/17/19 19:00 Ur Specific [place] 1.006 (1.001-1.035) 07/17/19 19:00 Urine Protein Negative (Negative) 07/17/19 19:00 Urine Glucose (UA) Negative (Negative) 07/17/19 19:00 Urine Ketones Negative (Negative) 07/17/19 19:00 Urine Blood Negative (Negative) 07/17/19 19:00 Urine Nitrite Negative (Negative) 07/17/19 19:00 Urine Bilirubin Negative (Negative) 07/17/19 19:00 Urine Urobilinogen <2.0 mg/dL (<2.0) 07/17/19 19:00 Ur Leukocyte Esterase Negative (Negative) 07/17/19 19:00 C. difficile (EIA) Intrp Negative (Negative) 07/17/19 10:58 Microbiology 07/17/19 14:08 Blood Blood Culture - Preliminary No Growth after 24 hours 07/17/19 19:00 Urine,Voided Urine Culture - Preliminary Assessment and Plan (1) Electrolyte abnormality Current Visit: Yes Status: Acute Code(s): E87.8 - OTH DISORDERS OF DANNY CTROLYTE AND FLUID BALANCE, NEC SNOMED Code(s): 102679774 (2) Non-Hodgkin lymphoma Narrative/Plan: Pleasant 69-year-old woman presents to Hospital after her course of chemotherapy which was RituxanCHOP she seemed to tolerate it well but now feels very weak. She has testicular abnormalities, dehydration and weakness. With hydration and replacement of her life when she started to feel better. She has no fever, chills or rigors. No evidence of infection at this point in time. She does not have evidence of pneumonia, urinary tract infection and negative blood cultures so far. She is fortunately feeling better since coming to Hospital does not appear to be in need of antibiotics at this time. Current Visit: Yes Status: Acute Code(s): C85.90 - NON-HODGKIN LYMPHOMA, UNSPECIFIED, UNSPECIFIED SITE SNOMED Code(s): 258418787 (3) Pancytopenia Current Visit: Yes Status: Acute Code(s): D61.818 - OTHER PANCYTOPENIA SNOMED Code(s): 689347777
[2019-07-18] MEDS: TEMAZEPAM 15 MG CAP PO PRN (23:47)
[2019-07-19] MEDS: 0.9% NACL WITH KCL 40 MEQ/L 1,000 ML IV SCH ×2 (05:36→13:53)
[2019-07-19 05:58] VITALS: BP 110/70; PULSE 77; RESP 17; TEMP 97.9
[2019-07-19] MEDS: HEPARIN SODIUM,PORCINE 5,000 UNIT/ML 1 ML VIAL SQ SCH (08:06)
[2019-07-19] MEDS: PANTOPRAZOLE 40 MG/10 ML VIAL IVP SCH (08:06)
[2019-07-19] MEDS: CEFEPIME 2 GM in SODIUM CHLORIDE 0.9% 100 ML IVPB SCH (08:06)
[2019-07-19] MEDS: FILGRASTIM-SNDZ 300 MCG/0.5 ML SYRINGE SQ SCH (08:07)
[2019-07-19] MEDS: ONDANSETRON 4 MG/2 ML VIAL IVP PRN (08:09)
[2019-07-19 11:37] LABS: African American GFR (CKD) >90 (>60 ml/min/1.73 sqM); Anion Gap 4 mmol/L; Blood Urea Nitrogen 3 mg/dL (7-17); Calcium 7.3 mg/dL (8.4-10.2); Carbon Dioxide 26 mmol/L (22-30); Chloride 102 mmol/L (98-107); Glucose 87 mg/dL (74-99); Magnesium 1.6 mg/dL (1.6-2.3); Potassium 3.8 mmol/L (3.5-5.1); Sodium 132 mmol/L (137-145)
[2019-07-19 12:03] LABS: Anisocytosis Slight; HCT 25.6 % (34.0-46.0); HGB 8.6 gm/dL (11.4-16.0); Hypochromasia Slight; MCH 27.9 pg (25.0-35.0); MCHC 33.6 g/dL (31.0-37.0); MCV 83.1 fL (80.0-100.0); Mean Platelet Volume 5.9; Platelet Count 128 k/uL (150-450); Poikilocytosis Moderate; RBC 3.08 m/uL (3.80-5.40); RDW 17.5 % (11.5-15.5)
[2019-07-19 12:34] LABS: Band Neutrophils % 9 %; Eosinophils # (M) 0.07 k/uL (0-0.7); Metamyelocytes # (M) 0.07 k/uL (0); Metamyelocytes % 1 %; Neutrophils % (M) 82 %; Nucleated Red Blood Cells 1 /100 WBC (0-0); Total Cells Counted 200
[2019-07-19 12:35] LABS: Lymphocytes # (M) 0.27 k/uL (1.0-4.8); Monocytes # (M) 0.34 k/uL (0-1.0); Polychromasia Present; WBC 6.8 k/uL (3.8-10.6)
--- NOTE | 2019-07-20 08:46 | P.PN ---
Subjective Progress Note Date: 07/19/19 The patient feels much better today. She looks more alert, and overall stronger. No nausea/vomiting. Diarrhea has improved significantly. Objective - Vital Signs Vital signs: Vital Signs Temp 97.9 F 07/19/19 04:37 Pulse 77 07/19/19 04:37 Resp 17 07/19/19 04:37 BP 110/70 07/19/19 04:37 Pulse Ox 97 07/19/19 04:37 Intake & Output 07/19/19 07/20/19 07/20/19 18:59 06:59 18:59 Other: Voiding Method Toilet # Voids 1 - Constitutional General appearance: Present: no acute distress - EENT Eyes: Present: EOMI ENT: Present: hearing grossly normal, normal oropharynx - Respiratory Respiratory: bilateral: CTA - Cardiovascular Rhythm: regular Heart sounds: normal: S1, S2 - Gastrointestinal General gastrointestinal: Present: normal bowel sounds, soft - Integumentary Integumentary: Present: normal - Neurologic Neurologic: Present: CNII-XII intact - Musculoskeletal Musculoskeletal: Present: generalized weakness, strength equal bilaterally - Psychiatric Psychiatric: Present: A&O x's 3, appropriate affect - Labs CBC & Chem 7: 07/19/19 10:59 07/19/19 10:59 Labs: Abnormal Lab Results - Last 24 Hours (Table) 07/19/19 07/19/19 Range/Units 10:59 10:59 RBC 3.08 L (3.80-5.40) m/uL Hgb 8.6 L (11.4-16.0) gm/dL Hct 25.6 L (34.0-46.0) % RDW 17.5 H (11.5-15.5) % Plt Count 128 L (150-450) k/uL Lymphocytes # (Manual) 0.27 L (1.0-4.8) k/uL Metamyelocytes # (Man) 0.07 H (0) k/uL Nucleated RBCs 1 H (0-0) /100 WBC Sodium 132 L (137-145) mmol/L BUN 3 L (7-17) mg/dL Calcium 7.3 L (8.4-10.2) mg/dL Microbiology - Last 24 Hours (Table) 07/17/19 19:00 Urine Culture - Final Urine,Voided Reena albicans 07/17/19 14:08 Blood Culture - Preliminary Blood No Growth after 48 hours Assessment and Plan (1) Hypotension Narrative/Plan: Blood pressure has improved with hydration, and his back in the higher range of her baseline, which is 90 systolic. She feels stronger. She denies any dizziness or near-syncope on ambulation. - A possible causes discussed in detail with the patient and her family. At this time the etiology is not totally clear. She does not appear to have steroids insufficiency. Clinically I suspect that the patient has third spacing and vasodilation due to her extensive malignancy , with further exacerbation due to dehydration from decreased oral intake and diarrhea. She responds very well to hydration. - From our standpoint the patient is okay for discharge at this time. She will be set up for additional hydration in the office as an outpatient prior to her next chemotherapy. If the above clinical impression is correct, then the symptoms should improve as her tumor burden decreases with continuing chemotherapy. Status: Acute Code(s): I95.9 - HYPOTENSION, UNSPECIFIED SNOMED Code(s): 97663753 (2) Electrolyte abnormality Narrative/Plan: This has been corrected, and numbers are in a safe range. We'll continue to monitor. She'll be placed on oral supplementation for potassium as an outpat ient if needed Status: Acute Code(s): E87.8 - OTH DISORDERS OF ELECTROLYTE AND FLUID BALANCE, NEC SNOMED Code(s): 552226481 (3) Pancytopenia Narrative/Plan: WBC has recovered into a safe range. Hemoglobin and platelets are low but also in a safe range. G-CSF can be stopped on discharge. Pegylated G-CSF will be added after cycle 2. Status: Acute Code(s): D61.818 - OTHER PANCYTOPENIA SNOMED Code(s): 829868669 (4) Non-Hodgkin lymphoma Narrative/Plan: The patient is scheduled to receive cycle #2 next week . Assuming no new events, she will stay on that schedule Status: Acute Code(s): C85.90 - NON-HODGKIN LYMPHOMA, UNSPECIFIED, UNSPECIFIED SITE SNOMED Code(s): 576166289
--- NOTE | 2019-07-27 07:53 | CDI ---
Documentation Clarification Form Date: 07/27/2019 7:42:16 AM From: Paulina Donahue Phone: If you have a question about this query, please contact Irma Hernández Front Maker at [phone] between 8am and 5pm Admit Date: 07/17/2019 4:26:00 AM Patient Name: Kina Arredondo Visit Number: [id number] Discharge Date: 07/19/2019 2:09:00 PM ATTENTION: The Clinical Documentation Specialists (CDI) and [facility] Coding Staff appreciate your assistance in clarifying documentation. Please respond to the clarification below the line at the bottom and electronically sign. The CDI & [facility] Coding staff will review the response and follow-up if needed. Please note: Queries are made part of the Legal Health Record. If you have any questions, please contact the author of this message via ITS. Dr. Jelly Weaver Conflicting documentation has been found in the medical record: H and P and PN document hypotension possibly neutropenic sepsis. Oncology consult documents hypotension Patient does not appear to have evidence of infection abdi likely due to symptoms of lymphoma. Please clarify if patient had sepsis or was it ruled out. History/Risk Factors: j hypotension, Lymphoma, pancytopenia due to chemo, electrolyte imbalances, negative blood cultures Treatment: Broad spectrum antiobiotics, hydration. In your opinion, what is the most clinically appropriate diagnosis for this patient? neutropenic sepsis Sepsis ruled out Hypotension most likely due to symptoms of lymphoma Other explanation of clinical findings Unable to determine (no explanation for clinical findings) Sepsis ruled out MTDD
== END 2019-07-19 14:09 | disposition home or self-care (01) | DRG 640 ==
LOC: 3SCARD 04:26 → 4MS4W 07-18 20:42
PROVIDERS: ADMIT Hospitalist; ATTEND Hospitalist
DX: E87.6 Hypokalemia (principal); D61.810 Antineoplastic chemotherapy induced pancytopenia; C82.98 Follicular lymphoma, unspecified, lymph nodes of multiple sites; C83.38 Diffuse large B-cell lymphoma, lymph nodes of multiple sites; E87.1 Hypo-osmolality and hyponatremia; I95.9 Hypotension, unspecified; T45.1X5A Adverse effect of antineoplastic and immunosuppressive drugs, initial encounter; E83.42 Hypomagnesemia; E86.0 Dehydration; I10 Essential (primary) hypertension; Z79.82 Long term (current) use of aspirin; Z87.891 Personal history of nicotine dependence; Z90.49 Acquired absence of other specified parts of digestive tract; Z90.710 Acquired absence of both cervix and uterus; Z79.899 Other long term (current) drug therapy; R19.7 Diarrhea, unspecified
CPT/HCPCS: 71045; 80048; 80053; 81003; 82533; 83605; 83735; 84132; 84484; 85025; 85610; 87040; 87086; 87324; 93306

== ENCOUNTER → 2020-06-23 | Outpatient (CLI) | payer MEDICARE ==
--- NOTE | 2020-06-26 10:31 | MM ---
Reason for exam: screening (asymptomatic). Last mammogram was performed 2 years ago. History: Patient is postmenopausal and has history of other cancer at age 69. Family history of breast cancer in paternal aunt. Took estrogen for 13 years. Physical Findings: A clinical breast exam by your physician is recommended on an annual basis and results should be correlated with mammographic findings. MG 3D Screening Mammo W/Cad Bilateral CC and MLO view(s) were taken. Prior study comparison: June 24, 2018, bilateral MG 3d screening mammo w/cad. April 23, 2017, bilateral MG 3d screening mammo w/cad. The breast tissue is heterogeneously dense. This may lower the sensitivity of mammography. There is no discrete abnormality. Right mediport catheter axilla. Benign bilateral axillary lymph nodes redemonstrated. ASSESSMENT: Benign, BI-RAD 2 RECOMMENDATION: Routine screening mammogram of both breasts in 1 year.
== END | disposition home or self-care (01) ==
LOC: RADMAMWWP 10:23
PROVIDERS: ATTEND Family Medicine
DX: Z12.31 Encounter for screening mammogram for malignant neoplasm of breast (principal)
CPT/HCPCS: 77063; 77067

== ENCOUNTER 2021-02-23 08:38 | Inpatient (IN) | payer MEDICARE ==
[2021-02-23 10:14] LABS: Basophils % (A) 0 %; Eosinophils # (A) 0.1 k/uL (0-0.7); Eosinophils % (A) 2 %; HCT 37.4 % (34.0-46.0); HGB 11.8 gm/dL (11.4-16.0); Lymphocytes # (A) 0.7 k/uL (1.0-4.8); Lymphocytes % (A) 12 %; MCH 34.5 pg (25.0-35.0); MCHC 31.5 g/dL (31.0-37.0); MCV 109.5 fL (80.0-100.0); Macrocytosis Marked; Mean Platelet Volume 7.2; Monocytes # (A) 0.3 k/uL (0-1.0); Monocytes % (A) 5 %; Neutrophils # (A) 4.3 k/uL (1.3-7.7); Neutrophils % (A) 80 %; Platelet Count 169 k/uL (150-450); RBC 3.41 m/uL (3.80-5.40); RDW 13.8 % (11.5-15.5); WBC 5.4 k/uL (3.8-10.6)
[2021-02-23 10:29] LABS: ALT 24 U/L (4-34); AST 31 U/L (14-36); African American GFR (CKD) >90 (>60 ml/min/1.73 sqM); Albumin/Globulin Ratio 1.7; Alkaline Phosphatase 88 U/L (38-126); Anion Gap 7 mmol/L; Blood Urea Nitrogen 13 mg/dL (7-17); Carbon Dioxide 24 mmol/L (22-30); Chloride 112 mmol/L (98-107); Globulin 2.3 g/dL; Glucose 98 mg/dL (74-99); Non-African American GFR(CKD) >90 (>60 ml/min/1.73 sqM); Phosphorus 3.5 mg/dL (2.5-4.5); Potassium 3.8 mmol/L (3.5-5.1); Sodium 143 mmol/L (137-145); Total Bilirubin 0.4 mg/dL (0.2-1.3); Total Protein 6.3 g/dL (6.3-8.2); Uric Acid 3.7 mg/dL (3.7-7.4)
[2021-02-23] MEDS ORDERED: MECLIZINE 25 MG TAB PO PRN (12:17)
[2021-02-23] MEDS ORDERED: ACETAMINOPHEN TAB 325 MG TAB PO PRN (12:17)
[2021-02-23] MEDS ORDERED: ONDANSETRON 4 MG/2 ML VIAL IVP PRN (12:19)
[2021-02-23] MEDS: SODIUM CHLORIDE 0.9% 1,000 ML IV SCH ×2 (12:37→14:50)
[2021-02-23 13:15] LABS: Reticulocyte % 3.1 % (0.5-2.0)
[2021-02-23 13:40] LABS: Partial Thromboplastin Time 19.7 sec (22.0-30.0)
[2021-02-23] MEDS ORDERED: LIDOCAINE 1% INJ 10MG/ML (20 ML MDV) ONE (14:18)
[2021-02-23] MEDS ORDERED: LIDOCAINE 1% INJ 10MG/ML (20 ML MDV) SQ ONE (14:27)
[2021-02-23] MEDS: DEXAMETHASONE SOD PHOSPHATE 10 MG/ML 1 ML VIAL IV SCH (15:22)
[2021-02-23] MEDS: FAMOTIDINE 20 MG/2 ML VIAL IVP SCH (15:23)
[2021-02-23] MEDS: ONDANSETRON 16 MG in SODIUM CHLORIDE 0.9% 50 ML IVPB SCH (15:23)
[2021-02-23] MEDS ORDERED: LORazepam 0.5 MG TAB PO PRN (16:12)
--- NOTE | 2021-02-23 16:15 | P.HPIM ---
History of Present Illness H&P Date: 02/23/21 Chief Complaint: Timed Chemo Ms. Rodriguez is a pleasant white female, in overall good health and baseline. The patient had felt a lump just above her right collarbone, as well as another lump in the left upper thigh, in early 05/17. These seem to increased progressively in size. Around the same time she also developed progressive symptoms of fatigue, sweats, and decreased appetite. She was seen by her primary care physician and referred to Dr. benson. She had an excisional biopsy on 05/14/19 at both sites. The right supraclavicular node showed replacement by necrotic nonviable tissue possible diffuse large B-cell lymphoma. 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 Flow cytometric analysis confirmed the presence of CD19, CD20 and CD10 positive lymphocytic population. MYC testing was ordered and came back negative ruling out doublet/triple hit pathology. The patient had a PET scan done on 06/15/19, they showed multiple areas of uptake, including bilateral submandibular, bilateral supraclavicular, bilateral axillary, mediastinal, spleen, retrocrural and retroperitoneal as well as pelvic and inguinal. Multiple hypermetabolic foci were seen along the sternum ,. Osseous involvement was also noted in the left anterior mid rib and right humeral head. She was referred here for further evaluation and recommendations She denied any prior history of malignancy She was started on R - CHOP on 07/07/19 and is s/p 6 cycles, completing those on 10/21/19 She was hospitalized after C 1 with low BP, dehydration, pancytopenia and electrolyte abnormalities. She improved with supportive treatment and was able to have cycle 2 on schedule.. Neulasta was added with cycle2 She tripped and fell in mid 11/18, and dislocated her rt shoulder. This has resolved. She was seen at her own request on 01/11/21. She had noted 1-2 lumps just behind the angle of the rt mandible in mid 12/17. She was seen by her PCP and was asked to f/u. She has mild tenderness associated. labs were normal. PET scan showed uptake in the right cervical and supraclavicular nodes, as well as and a left inguinal node. She was also referred for repeat biopsy, performed on 02/06/21. this again revealed diffuse large B-cell lymphoma. She denied any fevers/chills/n/vomiting. she has not noted any new adenopathy. Appetite is overall satisfactory. Blood pressure has been mostly stable in the normal range. Bowel movements are fairly normal. Her left groin mass has not recurred. This has now essentially resolved and further follow-up was not recommended by surgery. She had eye surgery for retinal detachment in 09/17 the pathology report and implications were discussed in detail with the patient and her family. This is essentially the same histology, with recurrence after slightly more than a year post R-CHOP. Overall burden of disease is comparatively mild for PET scan. Her performance status is normal. - the treatment options per guidelines were discussed in detail with her and her family. Given her poor performance status, I would recommend salvage chemotherapy with R-ICE regimen. She will be evaluated after 2 cycles with repeat PET scan. If the patient has a good response, she will continue on the same regimen, and also be referred for bone marrow transplant evaluation. - Logistics and possible side effects were discussed in detail. She will receive routine G-CSF support - Plan was for repeat port placement however due to the urgency to begin chemo will need picc line placement during admission prior to chemo. Review of Systems All systems: negative Constitutional: Reports as per HPI Past Medical History Past Medical History: Cancer Additional Past Medical History / Comment(s): Large B-cell Lymphoma History of Any Multi-Drug Resistant Organisms: None Reported Past Surgical History: Appendectomy, Hysterectomy, Tonsillectomy Past Anesthesia/Blood Transfusion Reactions: No Reported Reaction Past Psychological History: No Psychological Hx Reported Additional Psychological History / Comment(s): She is a retired engineering secretary. 2 pet cats. History of travel nothing is recent. Stopped smoking years ago. Smoking Status: Former smoker - Past Family History Father Family Medical History: Coronary Artery Disease (CAD), CVA/TIA Mother Family Medical History: No Reported History Medications and Allergies Home Medications Medication Instructions Recorded Confirmed Type L.acidoph,Paracasei, B.lactis 1 cap PO DAILY 07/06/19 02/23/21 History [Probiotic] Loratadine 10 mg PO DAILY 07/06/19 02/23/21 History Meclizine [Antivert] 25 mg PO TID PRN 07/06/19 02/23/21 History Famotidine [Pepcid] 20 mg PO BID 07/28/19 02/23/21 History Acetaminophen Tab [Tylenol] 325 mg PO Q4H PRN 02/23/21 02/23/21 History Biotin 2.5 mg PO DAILY 02/23/21 02/23/21 History Cholecalciferol (Vitamin D3) 125 mcg PO DAILY 02/23/21 02/23/21 History [Vitamin D3 (5000 Iu)] Magnesium Oxide [Magox 400] 400 mg PO DAILY 02/23/21 02/23/21 History Zinc 50 mg PO DAILY 02/23/21 02/23/21 History Ondansetron HCl [Zofran] 4 mg PO Q6HR PRN #30 tab 02/26/21 Rx Allergies Allergy/AdvReac Type Severity Reaction Status Date / Time No Known Allergies Allergy Verified 02/23/21 09:24 Physical Exam Vitals: Intake and Output 02/22/21 02/23/21 02/23/21 22:59 06:59 14:59 Other: Weight 68.039 kg - Constitutional General appearance: cooperative, no acute distress - EENT Eyes: EOMI, PERRLA ENT: NA/AT, normal oropharynx - Neck Neck: normal ROM - Respiratory Respiratory: bilateral: CTA - Cardiovascular Rhythm: regular - Gastrointestinal General gastrointestinal: soft - Integumentary Integumentary: pale - Neurologic Neurologic: CNII-XII intact - Musculoskeletal Musculoskeletal: generalized weakness, strength equal bilaterally - Psychiatric Psychiatric: A&O x's 3, appropriate affect, intact judgment & insight Results CBC & Chem 7: 02/26/21 04:15 02/26/21 04:15 Labs: Abnormal Lab Results - Last 24 Hours (Table) 02/23/21 02/23/21 Range/Units 09:54 09:54 RBC 3.41 L (3.80-5.40) m/uL MCV 109.5 H (80.0-100.0) fL Lymphocytes # 0.7 L (1.0-4.8) k/uL Macrocytosis Marked A Chloride 112 H (98-107) mmol/L Thrombosis Risk Factor Assmnt - DVT/VTE Prophylaxis DVT/VTE Prophylaxis: Pharmacologic Prophylaxis ordered - Choose All That Apply Any of the Below Risk Factors Present?: No Other Risk Factors: Yes Each Risk Factor Represents 2 Points: Age 61-74 years Other congenital or acquired thrombophilia - If yes, enter type in comment: No Thrombosis Risk Factor Assessment Total Risk Factor Score: 2 Thrombosis Risk Factor Assessment Level: Low Risk Assessment and Plan (1) Non-Hodgkin lymphoma Status: Acute Code(s): C85.90 - NON-HODGKIN LYMPHOMA, UNSPECIFIED, UNSPECIFIED SITE SNOMED Code(s): 200951489
[2021-02-23] MEDS: ETOPOSIDE 170 MG in SODIUM CHLORIDE 0.9% 500 ML 500 ML IV SCH (16:36)
[2021-02-23] MEDS: PANTOPRAZOLE 40 MG TABLET PO SCH (18:05)
[2021-02-23] MEDS: SALT AND SODA MOUTHWASH 1,000 ML PO SCH (18:05)
[2021-02-23] MEDS: FAMOTIDINE 20 MG TAB PO SCH (19:48)
[2021-02-23] MEDS: OLANZapine 5 MG TAB PO SCH (19:48)
[2021-02-23] MEDS ORDERED: OLANZapine 2.5 MG TAB PO SCH (21:00)
--- NOTE | 2021-02-23 21:34 | P.CONS ---
History of Present Illness - Reason for Consult Consult date: 02/23/21 Medical management Requesting physician: Eliseo Alcala - Chief Complaint Non-Hodgkin lymphoma and chemotherapy, - History of Present Illness HISTORY OF PRESENT ILLNESS 70-year-old female one of Dr. Mike Jaime's patient with past medical history of B cell lymphoma diagnosed approximately 2018 and ended up having to go for aggressive chemotherapy at the time which was in remission for the following 2 years when patient started having increased lymph node in the supraclavicular area with necrotic nonvisible tissue showed in different area including the neck supraclavicular the groin and the thigh area. Patient pathology came back positive apparently after completing her cycle of chemotherapy the first time in 10/21/2019 she is done well she had a few complication related to dehydration, pancytopenia and electrolyte abnormality require hospitalization. She tripped and fell in mid 2019 and dislocated her right shoulder. Patient found in December 2020 2 lump behind the angle of her mandible one of the right than on the left she was seen by her PCP requested follow-up with her oncologist. Referred for biopsy which was performed in February 06 and showed diffuse large B-cell lymphoma. Patient was not having any constitutional symptoms at the time her appetite was slightly bit slow and had generalized weakness and fatigue. She was seen again by Dr. Alcala oncology and started cycle of chemotherapy. Patient brought to the hospital today to start her cycle of chemotherapy by Dr. Alcala and to continue hydrating her well because of the complications and side effects she had with her chemotherapy will be very careful with any pancytopeni a, infection, anemia or severe thrombocytopenia. REVIEW OF SYSTEMS Constitutional: No fever, no chills, no night sweats. No weight change. No weakness, fatigue or lethargy. No daytime sleepiness. EENT: No headache. No blurred vision or double vision, no loss of vision. No loss of Hearing, no ringing in the ears, no dizziness. No nasal drainage or congestion. No epistaxis. No sore throat.lymph node enlargement cervical spine area Lungs: No shortness of breath, cough, no sputum production. No wheezing. Cardiovascular: No chest pain, no lower extremity edema. No palpitations. No paroxysmal nocturnal dyspnea. No orthopnea. No lightheadedness or dizziness. No syncopal episodes. Abdominal: No abdominal pain. No nausea, vomiting. No diarrhea. No constip ation. No bloody or tarry stools.. No loss of appetite. Genitourinary: No dysuria, increased frequency, urgency. No urinary retention. Musculoskeletal: No myalgias. No muscle weakness, no gait dysfunction, no frequent falls. No back pain. No neck pain. Integumentary: No wounds, no lesions. No rash or pruritus. No unusual bruising. No change in hair or nails. Neurologic: No aphasia. No facial droop. No change in mentation. No head injury. No headache. No paralysis. No paresthesia. Psychiatric: No depression. No anxiety. No mood swings. Endocrine: No abnormal blood sugars. No weight change. No excessive sweating or thirst. No cold intolerance. 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 with her . Family history: she had 3 children are all living and well, 5 siblings without any major medical problem. Patient's father age 70 from CVA and mother age 60 from [place]. PHYSICAL EXAMINATION Gen: This is well-developed does not look in any respiratory distress. HEENT: Head is atraumatic, normocephalic. Pupils equal, round. Sclerae is anicteric. significantly enlarged lymph node in the cervical spine area mostly in the right compared to the left. NECK: Supple. No JVD. No lymphadenopathy. No thyromegaly. LUNGS: Clear to auscultation. No wheezes or rhonchi. No intercostal r etractions. HEART: Regular rate and rhythm. No murmur. ABDOMEN: Soft. Bowel sounds are present. No masses. No tenderness.slightly enlarged spleen. EXTREMITIES: No pedal edema. No calf tenderness. NEUROLOGICAL: Patient is awake, alert and oriented x3. Cranial nerves 2 through 12 are grossly intact. ASSESSMENT AND PLAN 1 large B-cell lymphoma: Patient will be covering for the second cycle of chemotherapy continue hydration continue pain management continue antinausea medication watch for any complication. 2 chronic diarrhea: Combination of her lymphoma along with IBS continue probiotic and continue Imodium on an as-needed basis. 3 drinking more than 4 beers daily for more than 20 years: Watch for any sign and symptom of withdrawal symptom or delirium tremor continue with patient on smaller dose of benzodiazepine as needed. 4 GI prophylaxis: Patient will be on Pepcid 20 mg twice a day. 5 DVT prophylaxis: Patient will have early mobilization, knee-high HAYDEE hose and Venodyne boots. 6 insomnia: Kos by lymphoma and chemotherapy: Patient be on Zyprexa 5 mg at bedtime. CODE STATUS: Full code. Dr. Alcala thank you very much for the consult psych can be any further help to please let me know. Past Medical History Past Medical History: Cancer Additional Past Medical History / Comment(s): Large B-cell Lymphoma History of Any Multi-Drug Resistant Organisms: None Reported Past Surgical History: Appendectomy, Hysterectomy, Tonsillectomy Past Anesthesia/Blood Transfusion Reactions: No Reported Reaction Past Psychological History: No Psychological Hx Reported Additional Psychological History / Comment(s): She is a retired police department secretary. 2 pet cats. History of travel nothing is recent. Stopped smoking years ago. Smoking Status: Former smoker - Past Family History Father Family Medical History: Coronary Artery Disease (CAD), CVA/TIA Mother Family Medical History: No Reported History Medications and Allergies Home Medications Medication Instructions Recorded Confirmed Type Aspirin [Adult Low Dose Aspirin EC] 81 mg PO DAILY 07/06/19 02/23/21 History L.acidoph,Paracasei, B.lactis 1 cap PO DAILY 07/06/19 02/23/21 History [Probiotic] Loratadine 10 mg PO DAILY 07/06/19 02/23/21 History Meclizine [Antivert] 25 mg PO TID PRN 07/06/19 02/23/21 History Famotidine [Pepcid] 20 mg PO BID 07/28/19 02/23/21 History Acetaminophen Tab [Tylenol] 325 mg PO Q4H PRN 02/23/21 02/23/21 History Biotin 2.5 mg PO DAILY 02/23/21 02/23/21 History Cholecalciferol (Vitamin D3) 125 mcg PO DAILY 02/23/21 02/23/21 History [Vitamin D3 (5000 Iu)] Magnesium Oxide [Magox 400] 400 mg PO DAILY 02/23/21 02/23/21 History Zinc 50 mg PO DAILY 02/23/21 02/23/21 History Allergies Allergy/AdvReac Type Severity Reaction Status Date / Time No Known Allergies Allergy Verified 02/23/21 09:24 Physical Exam Vitals: Vital Signs Temp Pulse Resp BP Pulse Ox 02/23/21 20:07 98.1 F 16 127/67 95 02/23/21 12:43 98.2 F 56 L 16 123/75 97 Intake and Output 02/23/21 02/23/21 02/23/21 06:59 14:59 22:59 Intake Total 250 Balance 250 Intake: Intake, IV Titration 250 Amount Sodium Chloride 0.9% 1, 250 000 ml @ 125 mls/hr IV . Q8H [facility] Rx#:[id number] Other: Voiding Method Toilet Weight 68.039 kg Results CBC & Chem 7: 02/23/21 09:54 02/23/21 09:54 Labs: Abnormal Lab Results - Last 24 Hours (Table) 02/23/21 02/23/21 02/23/21 Range/Units 09:54 09:54 12:55 RBC 3.41 L (3.80-5.40) m/uL MCV 109.5 H (80.0-100.0) fL Lymphocytes # 0.7 L (1.0-4.8) k/uL Macrocytosis Marked A Retic Count 3.1 H (0.5-2.0) % APTT (22.0-30.0) sec Chloride 112 H (98-107) mmol/L 02/23/21 Range/Units 12:55 RBC (3.80-5.40) m/uL MCV (80.0-100.0) fL Lymphocytes # (1.0-4.8) k/uL Macrocytosis Retic Count (0.5-2.0) % APTT 19.7 L (22.0-30.0) sec Chloride (98-107) mmol/L
[2021-02-24 03:09] LABS: INR 0.9 (<1.2); Prothrombin Time 9.9 sec (9.0-12.0)
[2021-02-24 03:36] LABS: Ferritin 281.9 ng/mL (10.0-291.0)
[2021-02-24 03:52] LABS: % Iron Saturation 9.8 (12.00-45.00); Folate, Serum 18.5 ng/mL
[2021-02-24 04:44] LABS: Basophils % (A) 0 %; Eosinophils % (A) 1 %; HCT 31.8 % (34.0-46.0); HGB 10.8 gm/dL (11.4-16.0); Lymphocytes # (A) 0.4 k/uL (1.0-4.8); Lymphocytes % (A) 10 %; MCH 36.2 pg (25.0-35.0); MCHC 33.9 g/dL (31.0-37.0); MCV 106.9 fL (80.0-100.0); Macrocytosis Moderate; Mean Platelet Volume 7.1; Monocytes # (A) 0.3 k/uL (0-1.0); Monocytes % (A) 8 %; Neutrophils # (A) 3.1 k/uL (1.3-7.7); Neutrophils % (A) 80 %; Platelet Count 163 k/uL (150-450); RBC 2.98 m/uL (3.80-5.40); RDW 13.3 % (11.5-15.5); WBC 3.9 k/uL (3.8-10.6)
[2021-02-24] MEDS: SODIUM CHLORIDE 0.9% 1,000 ML IV SCH ×3 (05:49→17:32)
[2021-02-24] MEDS: MAGNESIUM OXIDE 400 MG TAB PO SCH (09:35)
[2021-02-24] MEDS: FAMOTIDINE 20 MG TAB PO SCH ×2 (09:35→19:51)
[2021-02-24] MEDS: ASPIRIN 81 MG PO SCH (09:35)
[2021-02-24] MEDS: LORATADINE 10 MG TAB PO SCH (09:35)
[2021-02-24] MEDS: LACTOBACILLUS ACIDOPH & BULGAR 1 EACH PACKET PO SCH (09:35)
[2021-02-24] MEDS: PANTOPRAZOLE 40 MG TABLET PO SCH ×2 (09:35→17:32)
[2021-02-24] MEDS: ZINC SULFATE 220 MG CAP PO SCH (09:35)
[2021-02-24] MEDS: SALT AND SODA MOUTHWASH 1,000 ML PO SCH ×3 (09:36→17:32)
[2021-02-24 10:09] LABS: African American GFR (CKD) 112.1 (60.0-200.0); Albumin 3.5 g/dL (3.80-4.90); Albumin/Globulin Ratio 2.06 (1.60-3.17); Anion Gap 10.9 mmol/L (4.00-12.00); Calcium 8.2 mg/dL (8.7-10.3); Carbon Dioxide 21.1 mmol/L (21.6-31.8); Globulin 1.7 g/dL (1.6-3.3); Non-African American GFR(CKD) 96.7 (60.0-200.0); Phosphorus 4.8 mg/dL (2.4-5.1); Potassium 3.3 mmol/L (3.5-5.5); Total Bilirubin 0.4 mg/dL (0.2-1.2); Total Protein 5.2 g/dL (6.2-8.2); Uric Acid 4.7 mg/dL (2.9-7.7)
--- NOTE | 2021-02-24 13:27 | P.PN ---
Subjective Progress Note Date: 02/24/21 The patient tolerated her chemotherapy overnight well. She has no specific complaints. Objective - Vital Signs Vital signs: Vital Signs Temp 97.6 F 02/24/21 12:00 Pulse 51 L 02/24/21 12:00 Resp 16 02/24/21 12:00 BP 127/51 02/24/21 12:00 Pulse Ox 98 02/24/21 12:00 Intake & Output 02/23/21 02/24/21 02/24/21 18:59 06:59 18:59 Intake Total 250 Balance 250 Weight 68.039 kg Intake: Intake, IV Titration 250 Amount Sodium Chloride 0.9% 1, 250 000 ml @ 125 mls/hr IV . Q8H [facility] Rx#:[id number] Other: Voiding Method Toilet # Voids 5 - Constitutional General appearance: Present: no acute distress - EENT Eyes: Present: EOMI ENT: Present: hearing grossly normal, normal oropharynx - Respiratory Respiratory: bilateral: CTA - Cardiovascular Rhythm: regular Heart sounds: normal: S1, S2 - Gastrointestinal General gastrointestinal: Present: normal bowel sounds, soft - Integumentary Integumentary: Present: normal - Neurologic Neurologic: Present: CNII-XII intact - Musculoskeletal Musculoskeletal: Present: generalized weakness, strength equal bilaterally - Psychiatric Psychiatric: Present: A&O x's 3, appropriate affect - Labs CBC & Chem 7: 02/24/21 03:48 02/24/21 03:48 Labs: Abnormal Lab Results - Last 24 Hours (Table) 02/23/21 02/23/21 02/24/21 Range/Units 12:55 12:55 03:48 RBC 2.98 L (3.80-5.40) m/uL Hgb 10.8 L (11.4-16.0) gm/dL Hct 31.8 L (34.0-46.0) % MCV 106.9 H (80.0-100.0) fL MCH 36.2 H (25.0-35.0) pg Lymphocytes # 0.4 L (1.0-4.8) k/uL APTT 19.7 L (22.0-30.0) sec Potassium (3.5-5.5) mmol/L Chloride (96-109) mmol/L Carbon Dioxide (21.6-31.8) mmol/L Creatinine (0.6-1.5) mg/dL BUN/Creatinine Ratio (12.00-20.00) Ratio Glucose (70-110) mg/dL Calcium (8.7-10.3) mg/dL Iron 29 L (50-170) ug/dL % Saturation 9.80 L (12.00-45.00) Total Protein (6.2-8.2) g/dL Albumin (3.80-4.90) g/dL 02/24/21 Range/Units 03:48 RBC (3.80-5.40) m/uL Hgb (11.4-16.0) gm/dL Hct (34.0-46.0) % MCV (80.0-100.0) fL MCH (25.0-35.0) pg Lymphocytes # (1.0-4.8) k/uL APTT (22.0-30.0) sec Potassium 3.3 L (3.5-5.5) mmol/L Chloride 112 H (96-109) mmol/L Carbon Dioxide 21.1 L (21.6-31.8) mmol/L Creatinine 0.5 L (0.6-1.5) mg/dL BUN/Creatinine Ratio 26.00 H (12.00-20.00) Ratio Glucose 118 H (70-110) mg/dL Calcium 8.2 L (8.7-10.3) mg/dL Iron (50-170) ug/dL % Saturation (12.00-45.00) Total Protein 5.2 L (6.2-8.2) g/dL Albumin 3.50 L (3.80-4.90) g/dL Assessment and Plan (1) Non-Hodgkin lymphoma Narrative/Plan: The patient is admitted for cycle #1 of salvage R-ICE high dose infusional ch emotherapy. She started treatment well so far. Labs were reviewed and were satisfactory. Continue chemotherapy per protocol with ongoing monitoring. Continue supportive measures such as antiemetics when necessary, and salt and soda mouth Current Visit: Yes Status: Acute Code(s): C85.90 - NON-HODGKIN LYMPHOMA, UNSPECIFIED, UNSPECIFIED SITE SNOMED Code(s): 241773503 (2) Bicytopenia Narrative/Plan: Mild drop in WBC and hemoglobin, due to effects of chemotherapy. Counts are well within a safe range. No acute intervention required. Continue to monitor and transfuse if needed to keep hemoglobin greater than 7 and platelets are than 10 Current Visit: Yes Status: Acute Code(s): D75.89 - OTHER SPECIFIED DISEASES OF BLOOD AND BLOOD-FORMING ORGANS SNOMED Code(s): 13873272 Plan: Dr. Nichols's service following for measurement of her other medical problems
--- NOTE | 2021-02-24 14:48 | P.PN ---
Subjective Progress Note Date: 02/24/21 70-year-old female one of Dr. Mike Jaime's patient with past medical history of B cell lymphoma diagnosed approximately 2018 and ended up having to go for aggressive chemotherapy at the time which was in remission for the following 2 years when patient started having increased lymph node in the supra clavicular area with necrotic nonvisible tissue showed in different area including the neck supraclavicular the groin and the thigh area. Patient pathology came back positive apparently after completing her cycle of chemotherapy the first time in 10/21/2019 she is done well she had a few complication related to dehydration, pancytopenia and electrolyte abnormality require hospitalization. She tripped and fell in mid 2019 and dislocated her right shoulder. Patient found in December 2020 2 lump behind the angle of her mandible one of the right than on the left she was seen by her PCP requested follow-up with her oncologist. Referred for biopsy which was performed in February 06 and showed diffuse large B-cell lymphoma. Patient was not having any constitutional symptoms at the time her appetite was slightly bit slow and had generalized weakness and fatigue. She was seen again by Dr. Alcala oncology and started cycle of chemotherapy. Patient brought to the hospital today to start her cycle of chemotherapy by Dr. Alcala and to continue hydrating her well because of the complications and side ef fects she had with her chemotherapy will be very careful with any pancytopenia, infection, anemia or severe thrombocytopenia. Patient evaluated her today appetite. She denies any new concerns. She did have chemotherapy yesterday with no side effects. She had multiple bowel movements but he finds it is soft. She denies any fresh blood with it. Vitals are reviewed patient temp 97.8 pulse 52 RR 16 blood pressure 111/69. Hemoglobin is 12.8 BUN 21 creatinine 1.13. Patient was seen by oncology who has planned to complete cycle 1 of salvage R- ICE high-dose infusional chemotherapy while patient is in the hospital.. REVIEW OF SYSTEMS Constitutional: No fever, no chills, no night sweats. No weight change. No weakness, fatigue or lethargy. No daytime sleepiness. EENT: No headache. No blurred vision or double vision, no loss of vision. No loss of Hearing, no ringing in the ears, no dizziness. No nasal drainage or congestion. No epistaxis. No sore throat.lymph node enlargement cervical spine area Lungs: No shortness of breath, cough, no sputum production. No wheezing. Cardiovascular: No chest pain, no lower extremity edema. No palpitations. No paroxysmal nocturnal dyspnea. No orthopnea. No lightheadedness or dizziness. No syncopal episodes. Abdominal: No abdominal pain. No nausea, vomiting. No diarrhea. No constipation. No bloody or tarry stools.. No loss of appetite. Genitourinary: No dysuria, increased frequency, urgency. No urinary retention. Musculoskeletal: No myalgias. No muscle weakness, no gait dysfunction, no aspen quent falls. No back pain. No neck pain. Integumentary: No wounds, no lesions. No rash or pruritus. No unusual bruising. No change in hair or nails. Neurologic: No aphasia. No facial droop. No change in mentation. No head injury. No headache. No paralysis. No paresthesia. Psychiatric: No depression. No anxiety. No mood swings. Endocrine: No abnormal blood sugars. No weight change. No excessive sweating or thirst. No cold intolerance. Objective - Vital Signs Vital signs: Vital Signs Temp 97.6 F 02/24/21 12:00 Pulse 51 L 02/24/21 12:00 Resp 16 02/24/21 12:00 BP 127/51 02/24/21 12:00 Pulse Ox 98 02/24/21 12:00 Intake & Output 02/23/21 02/24/21 02/24/21 18:59 06:59 18:59 Intake Total 250 Balance 250 Weight 68.039 kg Intake: Intake, IV Titration 250 Amount Sodium Chloride 0.9% 1, 250 000 ml @ 125 mls/hr IV . Q8H [facility] Rx#:[id number] Other: Voiding Method Toilet # Voids 5 - Exam Gen: This is well-developed does not look in any respiratory distress. HEENT: Head is atraumatic, normocephalic. Pupils equal, round. Sclerae is anicteric. significantly enlarged lymph node in the cervical spine area mostly in the right compared to the left. NECK: Supple. No JVD. No lymphadenopathy. No thyromegaly. LUNGS: Clear to auscultation. No wheezes or rhonchi. No intercostal retractions. HEART: Regular rate and rhythm. No murmur. ABDOMEN: Soft. Bowel sounds are present. No masses. No tenderness.slightly enlarged spleen. EXTREMITIES: No pedal edema. No calf tenderness. NEUROLOGICAL: Patient is awake, alert and oriented x3. Cranial nerves 2 through 12 are grossly intact. - Labs CBC & Chem 7: 02/24/21 03:48 02/24/21 03:48 Labs: Abnormal Lab Results - Last 24 Hours (Table) 02/23/21 02/24/21 02/24/21 Range/Units 12:55 03:48 03:48 RBC 2.98 L (3.80-5.40) m/uL Hgb 10.8 L (11.4-16.0) gm/dL Hct 31.8 L (34.0-46.0) % MCV 106.9 H (80.0-100.0) fL MCH 36.2 H (25.0-35.0) pg Lymphocytes # 0.4 L (1.0-4.8) k/uL Potassium 3.3 L (3.5-5.5) mmol/L Chloride 112 H (96-109) mmol/L Carbon Dioxide 21.1 L (21.6-31.8) mmol/L Creatinine 0.5 L (0.6-1.5) mg/dL BUN/Creatinine Ratio 26.00 H (12.00-20.00) Ratio Glucose 118 H (70-110) mg/dL Calcium 8.2 L (8.7-10.3) mg/dL Iron 29 L (50-170) ug/dL % Saturation 9.80 L (12.00-45.00) Total Protein 5.2 L (6.2-8.2) g/dL Albumin 3.50 L (3.80-4.90) g/dL Assessment and Plan Plan: 1 large B-cell lymphoma/ Non hodgkin lymphoma : Patient admitted for #1 cycle of chemotherapy salvage R- ICE high-dose infusional chemotherapy continue hydration continue pain management continue antinausea medication watch for any compl ication. 2 chronic diarrhea: Combination of her lymphoma along with IBS continue probiotic and continue Imodium on an as-needed basis. 3 drinking more than 4 beers daily for more than 20 years: Watch for any sign and symptom of withdrawal symptom or delirium tremor continue with patient on smaller dose of benzodiazepine as needed. 4. Bicytopenia mild drop in hemoglobin due to the effects of chemotherapy. Continue to monitor. Transfuse if hemoglobin less than 7 and platelets less than 10,000 4 GI prophylaxis: Patient will be on Pepcid 20 mg twice a day. 5 DVT prophylaxis: Patient will have early mobilization, knee-high HAYDEE hose and Venodyne boots. 6 insomnia: sec to lymphoma and chemotherapy: Patient be on Zyprexa 5 mg at bedtime. CODE STATUS: Full code.
[2021-02-24] MEDS: ONDANSETRON 16 MG in SODIUM CHLORIDE 0.9% 50 ML IVPB SCH (15:28)
[2021-02-24] MEDS: DEXAMETHASONE SOD PHOSPHATE 10 MG/ML 1 ML VIAL IV SCH (15:28)
[2021-02-24] MEDS: FAMOTIDINE 20 MG/2 ML VIAL IVP SCH (15:28)
[2021-02-24] MEDS: ETOPOSIDE 170 MG in SODIUM CHLORIDE 0.9% 500 ML 500 ML IV SCH (16:04)
[2021-02-24] MEDS ORDERED: MESNA IV ONE (17:00)
[2021-02-24] MEDS ORDERED: SODIUM CHLORIDE 0.9% IV ONE ×2 (17:00)
[2021-02-24] MEDS ORDERED: IFOSFAMIDE IV ONE (17:00)
[2021-02-24] MEDS ORDERED: CARBOplatin 420 MG in SODIUM CHLORIDE 0.9% 250 ML IV ONE (18:00)
[2021-02-24] MEDS: OLANZapine 5 MG TAB PO SCH (19:51)
[2021-02-25] MEDS: SODIUM CHLORIDE 0.9% 1,000 ML IV SCH ×3 (04:07→19:34)
[2021-02-25 06:40] LABS: HCT 33.4 % (34.0-46.0); HGB 11.1 gm/dL (11.4-16.0); MCH 35.7 pg (25.0-35.0); MCHC 33.2 g/dL (31.0-37.0); MCV 107.5 fL (80.0-100.0); Macrocytosis Moderate; Mean Platelet Volume 7.4; Platelet Count 146 k/uL (150-450); RBC 3.11 m/uL (3.80-5.40); RDW 13.2 % (11.5-15.5); WBC 3.4 k/uL (3.8-10.6)
[2021-02-25] MEDS: ASPIRIN 81 MG PO SCH (08:59)
[2021-02-25] MEDS: FAMOTIDINE 20 MG TAB PO SCH ×2 (08:59→20:45)
[2021-02-25] MEDS: MAGNESIUM OXIDE 400 MG TAB PO SCH (08:59)
[2021-02-25] MEDS: PANTOPRAZOLE 40 MG TABLET PO SCH ×2 (08:59→17:21)
[2021-02-25] MEDS: SALT AND SODA MOUTHWASH 1,000 ML PO SCH ×3 (08:59→19:34)
[2021-02-25] MEDS: LACTOBACILLUS ACIDOPH & BULGAR 1 EACH PACKET PO SCH (08:59)
[2021-02-25] MEDS: LORATADINE 10 MG TAB PO SCH (09:00)
[2021-02-25] MEDS: ZINC SULFATE 220 MG CAP PO SCH (09:00)
[2021-02-25 10:54] LABS: African American GFR (CKD) 112.1 (60.0-200.0); Albumin 3.6 g/dL (3.80-4.90); Albumin/Globulin Ratio 2.12 (1.60-3.17); Anion Gap 7.7 mmol/L (4.00-12.00); Calcium 8.4 mg/dL (8.7-10.3); Carbon Dioxide 22.3 mmol/L (21.6-31.8); Globulin 1.7 g/dL (1.6-3.3); Non-African American GFR(CKD) 96.7 (60.0-200.0); Potassium 3.9 mmol/L (3.5-5.5); Total Bilirubin 0.3 mg/dL (0.3-1.2); Total Protein 5.3 g/dL (6.2-8.2)
--- NOTE | 2021-02-25 11:46 | P.PN ---
Subjective Progress Note Date: 02/25/21 70-year-old female one of Dr. Mike Jaime's patient with past medical history of B cell lymphoma diagnosed approximately 2018 and ended up having to go for aggressive chemotherapy at the time which was in remission for the following 2 years when patient started having increased lymph node in the supra clavicular area with necrotic nonvisible tissue showed in different area including the neck supraclavicular the groin and the thigh area. Patient pathology came back positive apparently after completing her cycle of chemotherapy the first time in 10/21/2019 she is done well she had a few complication related to dehydration, pancytopenia and electrolyte abnormality require hospitalization. She tripped and fell in mid 2019 and dislocated her right shoulder. Patient found in December 2020 2 lump behind the angle of her mandible one of the right than on the left she was seen by her PCP requested follow-up with her oncologist. Referred for biopsy which was performed in February 06 and showed diffuse large B-cell lymphoma. Patient was not having any constitutional symptoms at the time her appetite was slightly bit slow and had generalized weakness and fatigue. She was seen again by Dr. Alcala oncology and started cycle of chemotherapy. Patient brought to the hospital today to start her cycle of chemotherapy by Dr. Alcala and to continue hydrating her well because of the complications and side ef fects she had with her chemotherapy will be very careful with any pancytopenia, infection, anemia or severe thrombocytopenia. Patient evaluated her today appetite. She denies any new concerns. She did have chemotherapy yesterday with no side effects. She had multiple bowel movements but he finds it is soft. She denies any fresh blood with it. Vitals are reviewed patient temp 97.8 pulse 52 RR 16 blood pressure 111/69. Hemoglobin is 12.8 BUN 21 creatinine 1.13. Patient was seen by oncology who has planned to complete cycle 1 of salvage R- ICE high-dose infusional chemotherapy while patient is in the hospital.. Patient seen today. Denies any chest pain shortness of breath. She does feel sore in the right neck associated with some fullness in the ER. Patient denies any loose bowel habits today. Vitals are stable temperature 90.8 pulse 52 respiratory rate 16 blood pressure 155/77 oxygenating on 98% on room air . Labs reviewed patient's WBC is low at 3.4 hemoglobin 11.1 and MCV is 107.5 platelet has dropped since yesterday to 146. Sodium is 146 chloride 116 BUN 13 creatinine 0.5. AST 46 ALT 49 increased since yesterday. REVIEW OF SYSTEMS Constitutional: No fever, no chills, no night sweats. No weight change. No weakness, fatigue or lethargy. No daytime sleepiness. EENT: No headache. No blurred vision or double vision, no loss of vision. No loss of Hearing, no ringing in the ears, no dizziness. Soreness involving the right neck No nasal drainage or congestion. No epistaxis. No sore throat. lymph node enlargement cervical spine area Lungs: No shortness of breath, cough, no sputum production. No wheezing. Cardiovascular: No chest pain, no lower extremity edema. No palpitations. No paroxysmal nocturnal dyspnea. No orthopnea. No lightheadedness or dizziness. No syncopal episodes. Abdominal: No abdominal pain. No nausea, vomiting. No diarrhea. No constipation. No bloody or tarry stools.. No loss of appetite. Genitourinary: No dysuria, increased frequency, urgency. No urinary retention. Musculoskeletal: No myalgias. No muscle weakness, no gait dysfunction, no frequent falls. No back pain. No neck pain. Integumentary: No wounds, no lesions. No rash or pruritus. No unusual bruising. No change in hair or nails. Neurologic: No aphasia. No facial droop. No change in mentation. No head injury. No headache. No paralysis. No paresthesia. Psychiatric: No depression. No anxiety. No mood swings. Endocrine: No abnormal blood sugars. No weight change. No excessive sweating or thirst. No cold intolerance. Objective - Vital Signs Vital signs: Vital Signs Temp 98.0 F 02/25/21 08:00 Pulse 54 L 02/25/21 08:00 Resp 16 02/25/21 08:00 BP 155/77 02/25/21 08:00 Pulse Ox 98 02/25/21 08:00 Intake & Output 02/24/21 02/25/21 02/25/21 18:59 06:59 18:59 Intake Total 2300 Balance 2300 Intake: Intake, IV Titration 2300 Amount CARBOplatin 420 mg In 250 Sodium Chloride 0.9% 250 ml @ 584 mls/hr IV ONCE ONE Rx#:[id number] Etoposide 170 mg In 500 Sodium Chloride 0.9% 500 ml 500 ml @ 508.5 mls/hr IV Q24H [facility] Rx#:[id number] Ondansetron 16 mg In 50 Sodium Chloride 0.9% 50 ml @ 232 mls/hr IVPB Q24H [facility] Rx#:[id number] Sodium Chloride 0.9% 1, 1500 000 ml @ 125 mls/hr IV . Q8H [facility] Rx#:[id number] Other: Voiding Method Toilet # Voids 2 - Exam Gen: This is well-developed does not look in any respiratory distress. HEENT: Head is atraumatic, normocephalic. Pupils equal, round. Sclerae is an icteric. significantly enlarged lymph node in the cervical spine area mostly in the right compared to the left. NECK: Supple. No JVD. Enlarged lymphadenopathy involving the right cervical region. No thyromegaly. LUNGS: Clear to auscultation. No wheezes or rhonchi. No intercostal retractions. HEART: Regular rate and rhythm. No murmur. ABDOMEN: Soft. Bowel sounds are present. No masses. No tenderness.slightly enlarged spleen. EXTREMITIES: No pedal edema. No calf tenderness. NEUROLOGICAL: Patient is awake, alert and oriented x3. Cranial nerves 2 through 12 are grossly intact. - Labs CBC & Chem 7: 02/25/21 05:20 02/25/21 05:20 Labs: Abnormal Lab Results - Last 24 Hours (Table) 02/25/21 02/25/21 Range/Units 05:20 05:20 WBC 3.4 L (3.8-10.6) k/uL RBC 3.11 L (3.80-5.40) m/uL Hgb 11.1 L (11.4-16.0) gm/dL Hct 33.4 L (34.0-46.0) % MCV 107.5 H (80.0-100.0) fL MCH 35.7 H (25.0-35.0) pg Plt Count 146 L (150-450) k/uL Sodium 146 H (135-145) mmol/L Chloride 116 H (96-109) mmol/L Creatinine 0.5 L (0.6-1.5) mg/dL BUN/Creatinine Ratio 26.00 H (12.00-20.00) Ratio Glucose 113 H (70-110) mg/dL Calcium 8.4 L (8.7-10.3) mg/dL AST 46 H (13-35) U/L ALT 49 H (8-44) U/L Total Protein 5.3 L (6.2-8.2) g/dL Albumin 3.60 L (3.80-4.90) g/dL Assessment and Plan Plan: 1 large B-cell lymphoma/ Non hodgkin lymphoma : Patient admitted for #1 cycle of chemotherapy salvage R- ICE high-dose infusional chemotherapy continue hydration continue pain management continue antinausea medication watch for any complication. 2 chronic diarrhea: Combination of her lymphoma along with IBS continue probiotic and continue Imodium on an as-needed basis. 3 alcohol abuse drinking more than 4 beers daily for more than 20 years: Watch for any sign and symptom of withdrawal symptom or delirium tremor continue with patient on smaller dose of benzodiazepine as needed. 4. Bicytopenia mild drop in hemoglobin due to the effects of chemotherapy. Continue to monitor. Transfuse if hemoglobin less than 7 and platelets less than 10,000 #5. Acute transaminitis secondary to chemotherapy continue to monitor. Repeat CMP tomorrow 6 GI prophylaxis: Patient will be on Pepcid 20 mg twice a day. 7 DVT prophylaxis: Patient will have early mobilization, knee-high HAYDEE hose and Venodyne boots. 8 insomnia: sec to lymphoma and chemotherapy: Patient be on Zyprexa 5 mg at bedtime. CODE STATUS: Full code.
--- NOTE | 2021-02-25 12:07 | P.PN ---
Subjective Progress Note Date: 02/25/21 The patient continues on chemotherapy, without any major issues. Main complaint today is a mild sore throat on the right side. No fever/chills/nausea/vomiting or diarrhea Objective - Vital Signs Vital signs: Vital Signs Temp 98.0 F 02/25/21 08:00 Pulse 54 L 02/25/21 08:00 Resp 16 02/25/21 08:00 BP 155/77 02/25/21 08:00 Pulse Ox 98 02/25/21 08:00 Intake & Output 02/24/21 02/25/21 02/25/21 18:59 06:59 18:59 Intake Total 2300 Balance 2300 Intake: Intake, IV Titration 2300 Amount CARBOplatin 420 mg In 250 Sodium Chloride 0.9% 250 ml @ 584 mls/hr IV ONCE ONE Rx#:[id number] Etoposide 170 mg In 500 Sodium Chloride 0.9% 500 ml 500 ml @ 508.5 mls/hr IV Q24H [facility] Rx#:[id number] Ondansetron 16 mg In 50 Sodium Chloride 0.9% 50 ml @ 232 mls/hr IVPB Q24H [facility] Rx#:[id number] Sodium Chloride 0.9% 1, 1500 000 ml @ 125 mls/hr IV . Q8H [facility] Rx#:[id number] Other: Voiding Method Toilet # Voids 2 - Constitutional General appearance: Present: no acute distress - EENT Eyes: Present: EOMI ENT: Present: hearing grossly normal, normal oropharynx - Respiratory Respiratory: bilateral: CTA - Cardiovascular Rhythm: regular Heart sounds: normal: S1, S2 - Gastrointestinal General gastrointestinal: Present: normal bowel sounds, soft - Integumentary Integumentary: Present: normal - Neurologic Neurologic: Present: CNII-XII intact - Musculoskeletal Musculoskeletal: Present: generalized weakness, strength equal bilaterally - Psychiatric Psychiatric: Present: A&O x's 3, appropriate affect - Labs CBC & Chem 7: 02/25/21 05:20 02/25/21 05:20 Labs: Abnormal Lab Results - Last 24 Hours (Table) 02/25/21 02/25/21 Range/Units 05:20 05:20 WBC 3.4 L (3.8-10.6) k/uL RBC 3.11 L (3.80-5.40) m/uL Hgb 11.1 L (11.4-16.0) gm/dL Hct 33.4 L (34.0-46.0) % MCV 107.5 H (80.0-100.0) fL MCH 35.7 H (25.0-35.0) pg Plt Count 146 L (150-450) k/uL Sodium 146 H (135-145) mmol/L Chloride 116 H (96-109) mmol/L Creatinine 0.5 L (0.6-1.5) mg/dL BUN/Creatinine Ratio 26.00 H (12.00-20.00) Ratio Glucose 113 H (70-110) mg/dL Calcium 8.4 L (8.7-10.3) mg/dL AST 46 H (13-35) U/L ALT 49 H (8-44) U/L Total Protein 5.3 L (6.2-8.2) g/dL Albumin 3.60 L (3.80-4.90) g/dL Assessment and Plan (1) Non-Hodgkin lymphoma Narrative/Plan: The patient is admitted for salvage high dose infusional chemotherapy with the ER-IC E regimen. The patient is on day #3. She is tolerating treatment well so far. She will complete her chemotherapy tonight. Continue treatment per protocol with ongoing monitoring. Labs show no evidence of tumor lysis - Plan discharge in a.m. after completion of treatment, assuming patient is stable Current Visit: Yes Status: Acute Code(s): C85.90 - NON-HODGKIN LYMPHOMA, UNSPECIFIED, UNSPECIFIED SITE SNOMED Code(s): 653884294 (2) Pancytopenia due to antineoplastic chemotherapy Narrative/Plan: Agents labs are in the pancytopenia range, due to her chemotherapy. I'll counts are well within a safe range. No acute augmentation required. Patient will receive growth factors after discharge, on 02/27/21 Current Visit: Yes Status: Acute Code(s): D61.810 - ANTINEOPLASTIC CHEMOTHERAPY INDUCED PANCYTOPENIA; T45.1X5A - ADVERSE EFFECT OF ANTINEOPLASTIC AND IMMUNOSUP DRUGS, INIT SNOMED Code(s): 036819836790588
[2021-02-25 12:18] LABS: Uric Acid 4.2 mg/dL (2.9-7.7)
[2021-02-25] MEDS: ONDANSETRON 16 MG in SODIUM CHLORIDE 0.9% 50 ML IVPB SCH (15:48)
[2021-02-25] MEDS: FAMOTIDINE 20 MG/2 ML VIAL IVP SCH (15:48)
[2021-02-25] MEDS: DEXAMETHASONE SOD PHOSPHATE 10 MG/ML 1 ML VIAL IV SCH (15:48)
[2021-02-25] MEDS: ETOPOSIDE 170 MG in SODIUM CHLORIDE 0.9% 500 ML 500 ML IV SCH (15:51)
[2021-02-25] MEDS: OLANZapine 5 MG TAB PO SCH (20:45)
[2021-02-26] MEDS: SODIUM CHLORIDE 0.9% 1,000 ML IV SCH (02:19)
[2021-02-26 05:33] LABS: HCT 32.8 % (34.0-46.0); HGB 10.1 gm/dL (11.4-16.0); Hypochromasia Slight; Macrocytosis Marked; Mean Platelet Volume 7.3; Platelet Count 145 k/uL (150-450); RBC 2.99 m/uL (3.80-5.40); RDW 13.4 % (11.5-15.5); WBC 2.8 k/uL (3.8-10.6)
[2021-02-26 05:37] LABS: MCV 109.7 fL (80.0-100.0)
[2021-02-26] MEDS: LACTOBACILLUS ACIDOPH & BULGAR 1 EACH PACKET PO SCH (08:11)
[2021-02-26] MEDS: MAGNESIUM OXIDE 400 MG TAB PO SCH (08:11)
[2021-02-26] MEDS: ASPIRIN 81 MG PO SCH (08:11)
[2021-02-26] MEDS: FAMOTIDINE 20 MG TAB PO SCH (08:11)
[2021-02-26] MEDS: LORATADINE 10 MG TAB PO SCH (08:11)
[2021-02-26] MEDS: PANTOPRAZOLE 40 MG TABLET PO SCH (08:11)
[2021-02-26] MEDS: ZINC SULFATE 220 MG CAP PO SCH (08:11)
[2021-02-26] MEDS: SALT AND SODA MOUTHWASH 1,000 ML PO SCH (08:12)
[2021-02-26 08:33] VITALS: BP 139/74; PULSE 55; RESP 17; TEMP 98.2
[2021-02-26 09:52] LABS: African American GFR (CKD) 112.1 (60.0-200.0); Albumin 3.2 g/dL (3.80-4.90); Albumin/Globulin Ratio 1.88 (1.60-3.17); Anion Gap 5.8 mmol/L (4.00-12.00); Calcium 8.3 mg/dL (8.7-10.3); Carbon Dioxide 26.2 mmol/L (21.6-31.8); Globulin 1.7 g/dL (1.6-3.3); Non-African American GFR(CKD) 96.7 (60.0-200.0); Potassium 4.4 mmol/L (3.5-5.5); Total Bilirubin 0.4 mg/dL (0.2-1.2); Total Protein 4.9 g/dL (6.2-8.2); Uric Acid 3.8 mg/dL (2.9-7.7)
--- NOTE | 2021-02-26 11:10 | P.DS ---
Providers Date of admission: 02/23/21 08:38 Expected date of discharge: 02/26/21 Attending physician: Eliseo Alcala Consults: 02/23/21 12:16 Consult Physician Routine Consulting Provider: Will Nichols Reason/Comments: medical management Do you want consulting provider notified?: Yes Primary care physician: Mike Jaime - Discharge Diagnosis(es) (1) Non-Hodgkin lymphoma Current Visit: Yes Status: Acute (2) Pancytopenia due to antineoplastic chemotherapy Current Visit: Yes Status: Acute Hospital Course: The pt was admitted to the hospital for first cycle of high dose infusional chemotherapy with the R-ICE regimen for salvage. Please refer to details of HPI, to her history and physical. Patient had a previous diagnosis of grade 3 follicular lymphoma, responded very well to treatment with bendamustine and Gaz yva. soon after her first maintenance treatment with immunotherapy, the patient developed recurrent symptoms with CT scans and then PET scan showing recurrence of malignancy. Biopsy confirmed transformation to diffuse large B-cell lymphoma. The patient was therefore admitted for salvage chemotherapy. She received the Rituxan component as an outpatient. The patient received chemotherapy per protocol with monitoring with physical exams and labs. She tolerated treatment well without any untoward side effects. Her labs remained adequate without any need for significant supplementation. There was no evidence of tumor lysis by labs. Therefore after completion of chemotherapy was decided to discharge her home. Assessment: Vital signs stable. Physical exam essentially within normal limits Procedures: high dose infusional chemotherapy PICC line placement Patient Condition at Discharge: Fair Plan - Discharge Summary Discharge Rx Participant: No New Discharge Prescriptions: New Ondansetron HCl [Zofran] 4 mg PO Q6HR PRN #30 tab PRN Reason: Nausea And Vomiting No Action Meclizine [Antivert] 25 mg PO TID PRN PRN Reason: Vertigo Loratadine 10 mg PO DAILY L.acidoph,Paracasei, B.lactis [Probiotic] 1 cap PO DAILY Famotidine [Pepcid] 20 mg PO BID Zinc 50 mg PO DAILY Biotin 2.5 mg PO DAILY Cholecalciferol (Vitamin D3) [Vitamin D3 (5000 Iu)] 125 mcg PO DAILY Magnesium Oxide [Magox 400] 400 mg PO DAILY Acetaminophen Tab [Tylenol] 325 mg PO Q4H PRN PRN Reason: Pain Or Fever > 100.5 Discharge Medication List L.acidoph,Paracasei, B.lactis [Probiotic] 1 cap PO DAILY 07/06/19 [History] Loratadine 10 mg PO DAILY 07/06/19 [History] Meclizine [Antivert] 25 mg PO TID PRN 07/06/19 [History] Famotidine [Pepcid] 20 mg PO BID 07/28/19 [History] Acetaminophen Tab [Tylenol] 325 mg PO Q4H PRN 02/23/21 [History] Biotin 2.5 mg PO DAILY 02/23/21 [History] Cholecalciferol (Vitamin D3) [Vitamin D3 (5000 Iu)] 125 mcg PO DAILY 02/23/21 [History] Magnesium Oxide [Magox 400] 400 mg PO DAILY 02/23/21 [History] Zinc 50 mg PO DAILY 02/23/21 [History] Ondansetron HCl [Zofran] 4 mg PO Q6HR PRN #30 tab 02/26/21 [Rx] Follow up Appointment(s)/Referral(s): Eliseo Alcala MD [STAFF PHYSICIAN] - As Needed ( patient to come to the office on 02/27/21 for PEG-G-CSF injections follow-up in the office for blood draw and provider visits according to previously scheduled appointment) Patient Instructions/Handouts: Neutropenia (GEN) Discharge Disposition: HOME SELF-CARE
--- NOTE | 2021-02-28 13:35 | IR ---
EXAMINATION TYPE: IR cvc insert >=5 years DATE OF EXAM: 02/28/2021 COMPARISON: NONE CLINICAL HISTORY: Needs long-term intravenous access for chemotherapy PROCEDURE: Hand hygiene obtained with soap and water and alcohol-based hand rub. After informed consent, the skin overlying the left basilic vein was localized with ultrasound and no olvin to be compressible and patent. An ultrasound image was obtained and submitted on the patient's c robertson. The overlying skin was prepped and draped and Lidocaine was used for local anesthesia. A skin garfield was made with a scalpel. Access was gained to the vein under ultrasound guidance with a 21 gau ge needle and a 0.018 inch wire was advanced. Access site was dilated with Peel-Away sheath and cath eter tailored to the appropriate length and advanced such that the distal tip is at the cavoatrial ju nction. Spot image was obtained verifying placement with the tip in the superior vena cava. Cathete r was fixed to the skin and a sterile dressing was placed following hemostasis. Catheter was aspirat ed and flushed with saline. Patient was discharged in stable condition without complication. Maximal barrier technique is utilized. Ultrasound image is documented on the chart. Ultrasound used with st erile technique. Fluoro time and fluoroscopic images submitted to document procedure: 0.4 minutes fluoroscopy time, 0 intraoperative images document the procedure IMPRESSION: STATUS POST ULTRASOUND AND FLUOROSCOPIC GUIDED PICC LINE PLACEMENT, READY FOR USE. THIS PROCEDURE WAS PERFORMED BY THE UNDERSIGNED.
== END 2021-02-26 12:41 | disposition home or self-care (01) | DRG 846 ==
LOC: 5NMEDONC 08:38
PROVIDERS: ADMIT Internal Medicine Hematology & Oncology; ATTEND Internal Medicine Hematology & Oncology
PROC: 02HV33Z Insertion of Infusion Device into Superior Vena Cava, Percutaneous Approach (ICD-10-PCS; 2021-02-23)
PROC: B548ZZA Ultrasonography of Superior Vena Cava, Guidance (ICD-10-PCS; 2021-02-23)
PROC: 3E03305 Introduction of Other Antineoplastic into Peripheral Vein, Percutaneous Approach (ICD-10-PCS; principal; 2021-02-23 13:55)
DX: Z51.11 Encounter for antineoplastic chemotherapy (principal); D61.810 Antineoplastic chemotherapy induced pancytopenia; C83.30 Diffuse large B-cell lymphoma, unspecified site; C82.90 Follicular lymphoma, unspecified, unspecified site; Z87.891 Personal history of nicotine dependence; Z90.710 Acquired absence of both cervix and uterus; Z82.49 Family history of ischemic heart disease and other diseases of the circulatory system; Z82.3 Family history of stroke; K58.9 Irritable bowel syndrome, unspecified; G47.00 Insomnia, unspecified; Z79.82 Long term (current) use of aspirin; F10.10 Alcohol abuse, uncomplicated; T45.1X5A Adverse effect of antineoplastic and immunosuppressive drugs, initial encounter
CPT/HCPCS: 36573; 80053; 82306; 82607; 82728; 82746; 83540; 83550; 83615; 83921; 84100; 84550; 85025; 85027; 85045; 85610; 85730

== ENCOUNTER 2021-03-15 08:51 | Inpatient (IN) | payer MEDICARE ==
[2021-03-15] MEDS: SODIUM CHLORIDE 0.9% 1,000 ML IV SCH ×2 (10:04→19:26)
[2021-03-15 10:08] LABS: Basophils % (A) 0 %; Eosinophils % (A) 0 %; HCT 26.4 % (34.0-46.0); HGB 9.2 gm/dL (11.4-16.0); Lymphocytes # (A) 0.8 k/uL (1.0-4.8); Lymphocytes % (A) 7 %; MCHC 34.7 g/dL (31.0-37.0); Macrocytosis Slight; Mean Platelet Volume 7.3; Monocytes # (A) 0.4 k/uL (0-1.0); Monocytes % (A) 4 %; Neutrophils % (A) 87 %; RBC 2.54 m/uL (3.80-5.40); RDW 14.6 % (11.5-15.5); WBC 11.5 k/uL (3.8-10.6)
[2021-03-15 10:20] LABS: ALT 30 U/L (4-34); AST 33 U/L (14-36); African American GFR (CKD) >90 (>60 ml/min/1.73 sqM); Albumin 3.8 g/dL (3.5-5.0); Albumin/Globulin Ratio 1.7; Alkaline Phosphatase 151 U/L (38-126); Anion Gap 6 mmol/L; Blood Urea Nitrogen 12 mg/dL (7-17); Calcium 9.3 mg/dL (8.4-10.2); Carbon Dioxide 26 mmol/L (22-30); Chloride 112 mmol/L (98-107); Globulin 2.2 g/dL; Glucose 93 mg/dL (74-99); Non-African American GFR(CKD) >90 (>60 ml/min/1.73 sqM); Phosphorus 3.4 mg/dL (2.5-4.5); Potassium 3.5 mmol/L (3.5-5.1); Sodium 144 mmol/L (137-145); Total Bilirubin 0.3 mg/dL (0.2-1.3); Uric Acid 4.5 mg/dL (3.7-7.4)
[2021-03-15 10:54] LABS: MCV 103.8 fL (80.0-100.0); Platelet Count 362 k/uL (150-450)
[2021-03-15] MEDS: DEXAMETHASONE SOD PHOSPHATE 10 MG/ML 1 ML VIAL IV SCH (11:06)
[2021-03-15] MEDS: FAMOTIDINE 20 MG/2 ML VIAL IVP SCH (11:06)
[2021-03-15] MEDS: ONDANSETRON 16 MG in SODIUM CHLORIDE 0.9% 50 ML IVPB SCH (11:06)
[2021-03-15] MEDS: ETOPOSIDE 170 MG in SODIUM CHLORIDE 0.9% 500 ML 500 ML IV SCH (11:51)
[2021-03-15] MEDS ORDERED: ACETAMINOPHEN TAB 325 MG TAB PO PRN (14:35)
[2021-03-15] MEDS ORDERED: MECLIZINE 25 MG TAB PO PRN (14:35)
--- NOTE | 2021-03-15 14:51 | P.HPIM ---
History of Present Illness H&P Date: 03/15/21 Chief Complaint: timed chemo Ms. Rodriguez is a pleasant white female, in overall good health and baseline. The patient had felt a lump just above her right collarbone, as well as another lump in the left upper thigh, in early 05/17. These seem to increased progressively in size. Around the same time she also developed progressive symptoms of fatigue, sweats, and decreased appetite. She was seen by her primary care physician and referred to Dr. benson. She had an excisional biopsy on 05/14/19 at both sites. The right supraclavicular node showed replacement by necrotic nonviable tissue possible diffuse large B-cell lymphoma. 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 Flow cytometric analysis confirmed the presence of CD19, CD20 and CD10 positive lymphocytic population. MYC testing was ordered and came back negative ruling out doublet/triple hit pathology. The patient had a PET scan done on 06/15/19, they showed multiple areas of uptake, including bilateral submandibular, bilateral supraclavicular, bilateral axillary, mediastinal, spleen, retrocrural and retroperitoneal as well as pelvic and inguinal. Multiple hypermetabolic foci were seen along the sternum ,. Osseous involvement was also noted in the left anterior mid rib and right humeral head. She was referred here for further evaluation and recommendations She denied any prior history of malignancy She was started on R - CHOP on 07/07/19 and is s/p 6 cycles, completing those on 10/21/19 She was hospitalized after C 1 with low BP, dehydration, pancytopenia and electrolyte abnormalities. She improved with supportive treatment and was able to have cycle 2 on schedule.. Neulasta was added with cycle2 She tripped and fell in mid 11/18, and dislocated her rt shoulder. This has resolved. She was seen at her own request on 01/11/21. She had noted 1-2 lumps just behind the angle of the rt mandible in mid 12/17. She was seen by her PCP and was asked to f/u. She has mild tenderness associated. labs were normal. PET scan showed uptake in the right cervical and supraclavicular nodes, as well as and a left inguinal node. She was also referred for repeat biopsy, performed on 02/06/21. this again revealed diffuse large B-cell lymphoma. She denied any fevers/chills/n/vomiting. she has not noted any new adenopathy. Appetite is overall satisfactory. Blood pressure has been mostly stable in the normal range. Bowel movements are fairly normal. Her left groin mass has not recurred. This has now essentially resolved and further follow-up was not recommended by surgery. She had eye surgery for retinal detachment in 09/17 the pathology report and implications were discussed in detail with the patient and her family. This is essentially the same histology, with recurrence after slightly more than a year post R-CHOP. Overall burden of disease is comparatively mild for PET scan. Her performance status is normal. - the treatment options per guidelines were discussed in detail with her and her family. Given her poor performance status, I would recommend salvage chemotherapy with R-ICE regimen. She will be evaluated after 2 cycles with repeat PET scan. If the patient has a good response, she will continue on the same regimen, and also be referred for bone marrow transplant evaluation. - Logistics and possible side effects were discussed in detail. She will receive routine G-CSF support Admission for cycle 2 of ICE Review of Systems All systems: negative Constitutional: Reports as per HPI Past Medical History Past Medical History: Cancer, Eye Disorder, GERD/Reflux, Hearing Disorder / Deafness Additional Past Medical History / Comment(s): 04/2019 follicular lymphoma tx with chemo/immunotherapy, 12/2020 diffuse large B cell lymphoma-here for 2nd round chemo. Other hx: vertigo, sinus problems, cataract L eye, deaf R ear. History of Any Multi-Drug Resistant Organisms: None Reported Past Surgical History: Appendectomy, Hysterectomy, Tonsillectomy Additional Past Surgical History / Comment(s): excisional biopsy above R clavicle/R thigh mass, 02/06/21 R mandible biopsty, R cataract removal/lens implant, bilateral eye surgery for retinal tear. Past Anesthesia/Blood Transfusion Reactions: No Reported Reaction Additional Past Anesthesia/Blood Transfusion Reaction / Comment(s): Pt has received blood in past without reaction. Smoking Status: Former smoker - Past Family History Father Family Medical History: Coronary Artery Disease (CAD), CVA/TIA Mother Family Medical History: No Reported History Medications and Allergies Home Medications Medication Instructions Recorded Confirmed Type L.acidoph,Paracasei, B.lactis 1 cap PO DAILY 07/06/19 03/15/21 History [Probiotic] Loratadine 10 mg PO DAILY 07/06/19 03/15/21 History Meclizine [Antivert] 25 mg PO TID PRN 07/06/19 03/15/21 History Famotidine [Pepcid] 20 mg PO BID 07/28/19 03/15/21 History Acetaminophen Tab [Tylenol] 325 mg PO Q4H PRN 02/23/21 03/15/21 History Biotin 2.5 mg PO DAILY 02/23/21 03/15/21 History Cholecalciferol (Vitamin D3) 125 mcg PO DAILY 02/23/21 03/15/21 History [Vitamin D3 (5000 Iu)] Magnesium Oxide [Magox 400] 400 mg PO DAILY 02/23/21 03/15/21 History Zinc 50 mg PO DAILY 02/23/21 03/15/21 History Ondansetron HCl [Zofran] 4 mg PO Q6HR PRN #30 tab 02/26/21 03/15/21 Rx Allergies Allergy/AdvReac Type Severity Reaction Status Date / Time No Known Allergies Allergy Verified 03/15/21 10:21 Physical Exam Vitals: Vital Signs Temp Pulse Resp BP Pulse Ox 03/15/21 11:02 98.1 F 62 18 145/79 100 Intake and Output 03/14/21 03/15/21 03/15/21 22:59 06:59 14:59 Other: Weight 67.585 kg - Constitutional General appearance: cooperative, no acute distress - EENT Eyes: EOMI, PERRLA ENT: NA/AT, normal oropharynx - Neck Neck: normal ROM - Respiratory Respiratory: bilateral: CTA - Cardiovascular Rhythm: regular - Gastrointestinal General gastrointestinal: soft - Integumentary Integumentary: pale - Neurologic Neurologic: CNII-XII intact - Musculoskeletal Musculoskeletal: generalized weakness, strength equal bilaterally - Psychiatric Psychiatric: A&O x's 3, appropriate affect, intact judgment & insight Results CBC & Chem 7: 03/15/21 09:50 03/15/21 09:50 Labs: Abnormal Lab Results - Last 24 Hours (Table) 03/15/21 03/15/21 Range/Units 09:50 09:50 WBC 11.5 H (3.8-10.6) k/uL RBC 2.54 L (3.80-5.40) m/uL Hgb 9.2 L (11.4-16.0) gm/dL Hct 26.4 L (34.0-46.0) % MCV 103.8 H D (80.0-100.0) fL MCH 36.0 H (25.0-35.0) pg Neutrophils # 10.0 H (1.3-7.7) k/uL Lymphocytes # 0.8 L (1.0-4.8) k/uL Chloride 112 H (98-107) mmol/L Alkaline Phosphatase 151 H (38-126) U/L Total Protein 6.0 L (6.3-8.2) g/dL Thrombosis Risk Factor Assmnt - DVT/VTE Prophylaxis DVT/VTE Prophylaxis: Pharmacologic Prophylaxis ordered - Choose All That Apply Each Factor Represents 1 point: Obesity (BMI >25) Other Risk Factors: Yes Each Risk Factor Represents 2 Points: Age 61-74 years, Malignancy Other congenital or acquired thrombophilia - If yes, enter type in comment: No Thrombosis Risk Factor Assessment Total Risk Factor Score: 5 Thrombosis Risk Factor Assessment Level: High Risk Assessment and Plan (1) Non-Hodgkin lymphoma Current Visit: No Status: Acute Code(s): C85.90 - NON-HODGKIN LYMPHOMA, UNSPECIFIED, UNSPECIFIED SITE SNOMED Code(s): 349833556 Plan: Cycle 2, day one timed chemo home meds VTE and PPI Medical Management Consult Physician Attest: I have completed the full history and physical and agree with above dictation, dictated as a ascribe
[2021-03-15] MEDS: SALT AND SODA MOUTHWASH 1,000 ML PO SCH ×3 (16:20→23:24)
[2021-03-15] MEDS: PANTOPRAZOLE 40 MG TABLET PO SCH (17:37)
[2021-03-15] MEDS: ONDANSETRON 4 MG TAB PO PRN (18:19)
[2021-03-15] MEDS: OLANZapine 5 MG TAB PO SCH (20:24)
[2021-03-15 22:48] LABS: % Iron Saturation 24.64 (12.00-45.00); Iron 68 ug/dL (50-170); Magnesium 1.5 mg/dL (1.5-2.4); Total Iron Binding Capacity 276 ug/dL (228-460)
[2021-03-15 23:23] LABS: Ferritin 608.4 ng/mL (10.0-291.0); Folate, Serum 16.4 ng/mL; Vitamin B12 >4000.0 pg/mL (211-911)
[2021-03-16] MEDS: SODIUM CHLORIDE 0.9% 1,000 ML IV SCH ×4 (04:48→22:43)
[2021-03-16 07:27] LABS: Basophils % (A) 0 %; Eosinophils % (A) 0 %; HCT 26.3 % (34.0-46.0); HGB 8.9 gm/dL (11.4-16.0); Lymphocytes # (A) 0.7 k/uL (1.0-4.8); Lymphocytes % (A) 9 %; MCH 35.5 pg (25.0-35.0); MCHC 33.7 g/dL (31.0-37.0); MCV 105.3 fL (80.0-100.0); Macrocytosis Slight; Monocytes # (A) 0.3 k/uL (0-1.0); Monocytes % (A) 4 %; Neutrophils % (A) 85 %; Platelet Count 357 k/uL (150-450); RDW 15.1 % (11.5-15.5); WBC 7.1 k/uL (3.8-10.6)
[2021-03-16] MEDS: SENNOSIDES-DOCUSATE SODIUM 1 EACH TAB PO SCH (07:32)
[2021-03-16] MEDS: PANTOPRAZOLE 40 MG TABLET PO SCH ×2 (07:32→17:01)
[2021-03-16] MEDS: CHOLECALCIFEROL 25 MCG (1000 IU) TABLET PO SCH (07:32)
[2021-03-16] MEDS: LORATADINE 10 MG TAB PO SCH (07:32)
[2021-03-16] MEDS: ENOXAPARIN 40 MG/0.4 ML SYRINGE SQ SCH (07:32)
[2021-03-16] MEDS: LACTOBACILLUS ACIDOPH & BULGAR 1 EACH PACKET PO SCH (07:32)
[2021-03-16] MEDS: SALT AND SODA MOUTHWASH 1,000 ML PO SCH ×4 (07:33→22:42)
[2021-03-16 07:45] LABS: Prothrombin Time 10.6 sec (9.0-12.0)
[2021-03-16] MEDS: ZINC SULFATE 220 MG CAP PO SCH (07:47)
[2021-03-16 08:12] LABS: Partial Thromboplastin Time 21.3 sec (22.0-30.0)
[2021-03-16] MEDS ORDERED: MAGNESIUM OXIDE 400 MG TAB PO SCH (09:00)
[2021-03-16 09:53] LABS: Appearance,Urine Clear (Clear); Bacteria,Urine Occasional /hpf; Bilirubin,Urine Negative (Negative); Blood,Urine Negative (Negative); Color,Urine Colorless; Glucose,Urine (UA) Negative (Negative); Ketones,Urine Negative (Negative); Leukocyte Esterase,Urine Small (Negative); Nitrite,Urine Negative (Negative); Protein,Urine Negative (Negative); RBC,Urine <1 /hpf (0-5); Specific Gravity,Urine 1.002 (1.001-1.035); Squamous Epithelial Cell,Urine <1 /hpf (0-4); Urobilinogen,Urine <2.0 mg/dL (<2.0); WBC,Urine 15 /hpf (0-5)
[2021-03-16] MEDS: ONDANSETRON 16 MG in SODIUM CHLORIDE 0.9% 50 ML IVPB SCH (12:01)
[2021-03-16] MEDS: FAMOTIDINE 20 MG/2 ML VIAL IVP SCH (12:01)
[2021-03-16] MEDS: DEXAMETHASONE SOD PHOSPHATE 10 MG/ML 1 ML VIAL IV SCH (12:01)
[2021-03-16 12:41] LABS: African American GFR (CKD) 105.5 (60.0-200.0); Albumin 3.7 g/dL (3.80-4.90); Albumin/Globulin Ratio 2.06 (1.60-3.17); Anion Gap 6.9 mmol/L (4.00-12.00); BUN/Creat Ratio 21.67 Ratio (12.00-20.00); Calcium 8.2 mg/dL (8.7-10.3); Carbon Dioxide 25.1 mmol/L (21.6-31.8); Globulin 1.8 g/dL (1.6-3.3); Magnesium 1.4 mg/dL (1.5-2.4); Non-African American GFR(CKD) 91.1 (60.0-200.0); Phosphorus 4.6 mg/dL (2.4-5.1); Potassium 3.7 mmol/L (3.5-5.5); Total Bilirubin 0.4 mg/dL (0.2-1.2); Total Protein 5.5 g/dL (6.2-8.2); Uric Acid 5.7 mg/dL (2.9-7.7)
[2021-03-16] MEDS: ETOPOSIDE 170 MG in SODIUM CHLORIDE 0.9% 500 ML 500 ML IV SCH (13:52)
--- NOTE | 2021-03-16 14:00 | P.PN ---
Subjective Progress Note Date: 03/16/21 Principal diagnosis: Timed Chemo Tolerating chemo well!! No complaints Objective - Vital Signs Vital signs: Vital Signs Temp 98.0 F 03/16/21 12:00 Pulse 63 03/16/21 12:00 Resp 16 03/16/21 12:00 BP 108/65 03/16/21 12:00 Pulse Ox 96 03/16/21 12:00 Intake & Output 03/15/21 03/16/21 03/16/21 18:59 06:59 18:59 Intake Total 1800 1500 Balance 1800 1500 Weight 67.585 kg Intake: Intake, IV Titration 1500 Amount Sodium Chloride 0.9% 1, 1500 000 ml @ 125 mls/hr IV . Q8H PRIETO Rx#:[id number] Oral 1800 Other: # Voids 4 3 - Exam - Constitutional General appearance: cooperative, no acute distress - EENT Eyes: EOMI, PERRLA ENT: NA/AT, normal oropharynx - Neck Neck: normal ROM - Respiratory Respiratory: bilateral: CTA - Cardiovascular Rhythm: regular - Gastrointestinal General gastrointestinal: soft - Integumentary Integumentary: pale - Neurologic Neurologic: CNII-XII intact - Musculoskeletal Musculoskeletal: generalized weakness, strength equal bilaterally - Psychiatric Psychiatric: A&O x's 3, appropriate affect, intact judgment & insight - Labs CBC & Chem 7: 03/16/21 07:07 03/16/21 07:07 Labs: Abnormal Lab Results - Last 24 Hours (Table) 03/15/21 03/16/21 03/16/21 Range/Units 14:39 07:07 07:07 RBC 2.50 L (3.80-5.40) m/uL Hgb 8.9 L (11.4-16.0) gm/dL Hct 26.3 L (34.0-46.0) % MCV 105.3 H (80.0-100.0) fL MCH 35.5 H (25.0-35.0) pg Lymphocytes # 0.7 L (1.0-4.8) k/uL APTT (22.0-30.0) sec Chloride 112 H (96-109) mmol/L BUN/Creatinine Ratio 21.67 H (12.00-20.00) Ratio Calcium 8.2 L (8.7-10.3) mg/dL Magnesium 1.4 L (1.5-2.4) mg/dL Ferritin 608.4 H (10.0-291.0) ng/mL AST 49 H (13-35) U/L ALT 61 H (8-44) U/L Alkaline Phosphatase 155 H (41-126) U/L Total Protein 5.5 L (6.2-8.2) g/dL Albumin 3.70 L (3.80-4.90) g/dL Vitamin B12 >4000.0 H (211-911) pg/mL Ur Leukocyte Esterase (Negative) Urine WBC (0-5) /hpf Urine Bacteria (None) /hpf 03/16/21 03/16/21 Range/Units 07:07 09:13 RBC (3.80-5.40) m/uL Hgb (11.4-16.0) gm/dL Hct (34.0-46.0) % MCV (80.0-100.0) fL MCH (25.0-35.0) pg Lymphocytes # (1.0-4.8) k/uL APTT 21.3 L (22.0-30.0) sec Chloride (96-109) mmol/L BUN/Creatinine Ratio (12.00-20.00) Ratio Calcium (8.7-10.3) mg/dL Magnesium (1.5-2.4) mg/dL Ferritin (10.0-291.0) ng/mL AST (13-35) U/L ALT (8-44) U/L Alkaline Phosphatase (41-126) U/L Total Protein (6.2-8.2) g/dL Albumin (3.80-4.90) g/dL Vitamin B12 (211-911) pg/mL Ur Leukocyte Esterase Small H (Negative) Urine WBC 15 H (0-5) /hpf Urine Bacteria Occasional H (None) /hpf Assessment and Plan (1) Non-Hodgkin lymphoma Current Visit: No Status: Acute Code(s): C85.90 - NON-HODGKIN LYMPHOMA, UNSPECIFIED, UNSPECIFIED SITE SNOMED Code(s): 310411412 Plan: Cycle 2, day Day 2 Hypomagnesium - Increase Mag Oxide BID CBC Daily CMP Mag phos and Uric acid daily home meds VTE and PPI Medical Management Consult Continue with Day two of chemo
[2021-03-16] MEDS ORDERED: CARBOplatin 550 MG in SODIUM CHLORIDE 0.9% 250 ML IV ONE (16:00)
[2021-03-16] MEDS ORDERED: SODIUM CHLORIDE 0.9% IV ONE ×2 (16:00)
[2021-03-16] MEDS ORDERED: IFOSFAMIDE IV ONE (16:00)
[2021-03-16] MEDS ORDERED: MESNA IV ONE (16:00)
--- NOTE | 2021-03-16 18:48 | P.CONS ---
History of Present Illness - Reason for Consult Consult date: 03/16/21 medical management Requesting physician: Eliseo Alcala - Chief Complaint B cell lymphoma treatment - History of Present Illness This is a 70-year-old pleasant female, patient of Dr. Benjamin Jaime, has underlying history of lump in the posterior cervical anterior cervical region, for which it was biopsied early April [address] 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 Patient had PET scan CT on 06/15/2019, has multiple areas of uptake including bilateral submental or bilateral supraclavicular or bilateral axillary, mediastinal spleen retrocrural, retroperitoneal as well as pelvic and inguinal areas. There is also hypermetabolic foci seen in the sternum, or chest involvement in the left anterior mid rib and right humeral head. Patient was started on ironOn 06/2019, requiring 6 cycles, completed in September 2019. Notes were reviewed from oncology, patient now comes seen for salvage chemotherapy with monisha smart, Patient denies any nausea vomiting at this time, no abdominal pain, no dizziness lightheadedness, no headache, no paresthesias, patient has underlying history off I disorder with retinal detachment in August 2020, GERD, hearing disorder with deafness, labs were reviewed, vitals are stable, hemoglobin 8.9, double basic count 7.1, INR 1.0, creatinine 0.6, glucose of 86, uric acid of 5.7, liver function test elevated with increased over the past 24 hours, related to the regimen. Current AST is 49 ALT 61 alkaline forced 155, LDH of 151. B12 over 4000, TSH 3.3 urinalysis shows some pyuria, however patient is not complaining of any difficulty, requested another urinalysis culture, midstream urine. Review of Systems Constitutional: Reports as per HPI, Denies anorexia, Denies chills, Denies chronic headaches, Denies chronic pain, Denies daytime sleepiness, Denies fatigue, Denies fever, Denies lethargy, Denies malaise, Denies night sweats, Denies poor appetite, Denies sweats, Denies weakness, Denies weight gain, Denies weight loss Ears, nose, mouth and throat: Reports as per HPI, Denies ant. neck pain, Denies bleeding gums, Denies dental pain, Denies dysphagia, Denies epistaxis, Denies headache, Denies hoarseness, Denies mouth pain, Denies nasal congestion, Denies nasal discharge, Denies neck fullness/pressure, Denies neck lump, Denies nose pain, Denies odynophagia, Denies post-nasal drip, Denies sinus pain, Denies sinus pressure, Denies swelling in mouth, Denies swelling in throat, Denies sore throat, Denies vertigo, Denies voice changes Cardiovascular: Reports as per HPI, Denies chest pain, Denies claudication, Denies decreased exercise tolerance, Denies dyspnea on exertion, Denies edema, Denies high blood pressure, Denies irregular heart beat, Denies leg edema, Denies lightheadedness, Denies orthopnea, Denies palpitations, Denies paroxysmal nocturnal dyspnea, Denies phlebitis, Denies rapid heart beat, Denies shortness of breath, Denies syncope Respiratory: Reports as per HPI Gastrointestinal: Reports as per HPI Genitourinary: Reports as per HPI, Denies abnormal vaginal bleeding, Denies decreased libido, Denies difficulty conceiving, Denies difficulty voiding, Denies dysmenorrhea, Denies dyspareunia, Denies dysuria, Denies flank pain, Denies genital sores, Denies hematuria, Denies hot flashes, Denies incomplete emptying, Denies kidney stones, Denies menorrhagia, Denies mixed incontinence, Denies nocturia, Denies pelvic pain, Denies post void dribbling, Denies , Denies prolapse symptoms, Denies stress incontinence, Denies urge incontinence, Denies urgency, Denies urinary frequency, Denies vaginal discharge, Denies vaginal dryness, Denies vaginal itching, Denies vaginal odor Menstruation: Reports as per HPI, Denies amenorrhea, Denies amenorrhea on BC, Denies currently menstrual, Denies cycle < 21 days, Denies cycle > 35 days, Denies cycle variable, Denies menses 1-7 days, Denies menses 8 or > days, Denies menses variable, Denies period heavy, Denies period light, Denies period normal, Denies period spotting, Denies post hysterectomy, Denies postmenopausal, Denies premenarcheal Musculoskeletal: Reports as per HPI, Denies arm numbness/tingling, Denies atrophy, Denies fractures, Denies frequent falls, Denies gait dysfunction, Denies hot joints, Denies leg numbness/tingling, Denies limitation of motion, Denies loss of height, Denies low back pain, Denies morning stiffness, Denies muscle cramps, Denies muscle weakness, Denies myalgias, Denies neck pain, Denies neck stiffness, Denies prior amputations, Denies redness of joints, Denies shooting arm pain, Denies shooting leg pain Integumentary: Reports as per HPI, Denies acne, Denies boils, Denies brittle nails, Denies change in hair/nails, Denies color changes, Denies darkening of skin, Denies depigmentation, Denies dryness, Denies foot/leg ulcers, Denies growths, Denies hirsutism, Denies lesions, Denies onychomycosis, Denies pruritus , Denies rash, Denies sores, Denies striae, Denies unusual bruising, Denies wounds Neurological: Reports as per HPI, Denies aphasia, Denies ataxia, Denies balance difficulties, Denies burning pain, Denies change in mentation, Denies change in smell/taste, Denies change in speech, Denies confusion, Denies convulsions, Denies double vision, Denies gait dysfunction, Denies head injury, Denies headaches, Denies hearing difficulties, Denies lack of coordination, Denies loss of vision, Denies memory loss, Denies migraines, Denies motor disturbance, Denies numbness, Denies paralysis, Denies paresthesias, Denies seizures, Denies sensory deficit, Denies spasticity, Denies syncope, Denies tic, Denies tingling, Denies transient paralysis, Denies tremors, Denies vertigo, Denies weakness, Denies visual changes Psychiatric: Reports as per HPI Endocrine: Reports as per HPI, Denies cold intolerance, Denies deepening of the voice, Denies excessive sweating, Denies excessive thirst, Denies fatigue, Denies flushing, Denies heat intolerance, Denies high blood sugars, Denies increase in ring/shoe/hat size, Denies low blood sugars, Denies nocturia, Denies palpitations, Denies polydipsia, Denies polyphagia, Denies polyuria, Denies proptosis, Denies recent glucocorticoid use, Denies thyroid mass, Denies weight change Hematologic/Lymphatic: Reports as per HPI Allergic/Immunologic: Reports as per HPI Past Medical History Past Medical History: Cancer, Eye Disorder, GERD/Reflux, Hearing Disorder / Deafness Additional Past Medical History / Comment(s): 04/2019 follicular lymphoma tx with chemo/immunotherapy, 12/2020 diffuse large B cell lymphoma-here for 2nd round chemo. Other hx: vertigo, sinus problems, cataract L eye, deaf R ear. History of Any Multi-Drug Resistant Organisms: None Reported Past Surgical History: Appendectomy, Hysterectomy, Tonsillectomy Additional Past Surgical History / Comment(s): excisional biopsy above R cl avicle/R thigh mass, 02/06/21 R mandible biopsty, R cataract removal/lens implant, bilateral eye surgery for retinal tear. Past Anesthesia/Blood Transfusion Reactions: No Reported Reaction Additional Past Anesthesia/Blood Transfusion Reaction / Comm: Pt has received blood in past without reaction. Smoking Status: Former smoker - Past Family History Father Family Medical History: Coronary Artery Disease (CAD), CVA/TIA Mother Family Medical History: No Reported History, Coronary Artery Disease (CAD) Brother(s) Family Medical History: No Reported History (5 bro healthy) Sister(s) Family Medical History: No Reported History Medications and Allergies Home Medications Medication Instructions Recorded Confirmed Type L.acidoph,Paracasei, B.lactis 1 cap PO DAILY 07/06/19 03/15/21 History [Probiotic] Loratadine 10 mg PO DAILY 07/06/19 03/15/21 History Meclizine [Antivert] 25 mg PO TID PRN 07/06/19 03/15/21 History Famotidine [Pepcid] 20 mg PO BID 07/28/19 03/15/21 History Acetaminophen Tab [Tylenol] 325 mg PO Q4H PRN 02/23/21 03/15/21 History Biotin 2.5 mg PO DAILY 02/23/21 03/15/21 History Cholecalciferol (Vitamin D3) 125 mcg PO DAILY 02/23/21 03/15/21 History [Vitamin D3 (5000 Iu)] Magnesium Oxide [Magox 400] 400 mg PO DAILY 02/23/21 03/15/21 History Zinc 50 mg PO DAILY 02/23/21 03/15/21 History Ondansetron HCl [Zofran] 4 mg PO Q6HR PRN #30 tab 02/26/21 03/15/21 Rx Allergies Allergy/AdvReac Type Severity Reaction Status Date / Time No Known Allergies Allergy Verified 03/15/21 10:21 Physical Exam Vitals: Vital Signs Temp Pulse Resp BP Pulse Ox 03/16/21 08:18 97.8 F 58 L 16 124/82 100 03/16/21 03:38 98 F 58 L 16 117/70 94 L 03/15/21 20:00 97.6 F 59 L 16 116/71 96 03/15/21 15:49 98.2 F 61 16 134/71 99 Intake and Output 03/15/21 03/16/21 03/16/21 22:59 06:59 14:59 Intake Total 1800 1500 Balance 1800 1500 Intake: Intake, IV Titration 1500 Amount Sodium Chloride 0.9% 1, 1500 000 ml @ 125 mls/hr IV . Q8H [facility] Rx#:[id number] Oral 1800 Other: # Voids 4 3 - Constitutional General appearance: cooperative, no acute distress - EENT Eyes: EOMI, PERRLA, dentition normal, normal appearance ENT: NA/AT, normal oropharynx - Neck Neck: normal ROM - Respiratory Respiratory: bilateral: CTA, negative: diminished, dullness, rales - Cardiovascular Rhythm: regular Heart sounds: normal: S1, S2 Abnormal Heart Sounds: no systolic murmur, no diastolic murmur, no rub, no S3 Gallop, no S4 Gallop, no click, no other - Gastrointestinal General gastrointestinal: normal bowel sounds, soft - Integumentary Integumentary: decreased turgor, normal - Neurologic Neurologic: CNII-XII intact - Musculoskeletal Musculoskeletal: gait normal, strength equal bilaterally - Psychiatric Psychiatric: A&O x's 3, appropriate affect, intact judgment & insight Results CBC & Chem 7: 03/16/21 07:07 03/16/21 07:07 Labs: Abnormal Lab Results - Last 24 Hours (Table) 03/15/21 03/16/21 03/16/21 Range/Units 14:39 07:07 07:07 RBC 2.50 L (3.80-5.40) m/uL Hgb 8.9 L (11.4-16.0) gm/dL Hct 26.3 L (34.0-46.0) % MCV 105.3 H (80.0-100.0) fL MCH 35.5 H (25.0-35.0) pg Lymphocytes # 0.7 L (1.0-4.8) k/uL APTT 21.3 L (22.0-30.0) sec Ferritin 608.4 H (10.0-291.0) ng/mL Vitamin B12 >4000.0 H (211-911) pg/mL Ur Leukocyte Esterase (Negative) Urine WBC (0-5) /hpf Urine Bacteria (None) /hpf 03/16/21 Range/Units 09:13 RBC (3.80-5.40) m/uL Hgb (11.4-16.0) gm/dL Hct (34.0-46.0) % MCV (80.0-100.0) fL MCH (25.0-35.0) pg Lymphocytes # (1.0-4.8) k/uL APTT (22.0-30.0) sec Ferritin (10.0-291.0) ng/mL Vitamin B12 (211-911) pg/mL Ur Leukocyte Esterase Small H (Negative) Urine WBC 15 H (0-5) /hpf Urine Bacteria Occasional H (None) /hpf Laboratory Results WBC 7.1 k/uL (3.8-10.6) 03/16/21 07:07 RBC 2.50 m/uL (3.80-5.40) L 03/16/21 07:07 Hgb 8.9 gm/dL (11.4-16.0) L 03/16/21 07:07 Hct 26.3 % (34.0-46.0) L 03/16/21 07:07 MCV 105.3 fL (80.0-100.0) H 03/16/21 07:07 MCH 35.5 pg (25.0-35.0) H 03/16/21 07:07 MCHC 33.7 g/dL (31.0-37.0) 03/16/21 07:07 RDW 15.1 % (11.5-15.5) 03/16/21 07:07 Plt Count 357 k/uL (150-450) 03/16/21 07:07 MPV 8.0 03/16/21 07:07 Neutrophils % 85 % 03/16/21 07:07 Lymphocytes % 9 % 03/16/21 07:07 Monocytes % 4 % 03/16/21 07:07 Eosinophils % 0 % 03/16/21 07:07 Basophils % 0 % 03/16/21 07:07 Neutrophils # 6.0 k/uL (1.3-7.7) 03/16/21 07:07 Lymphocytes # 0.7 k/uL (1.0-4.8) L 03/16/21 07:07 Monocytes # 0.3 k/uL (0-1.0) 03/16/21 07:07 Eosinophils # 0.0 k/uL (0-0.7) 03/16/21 07:07 Basophils # 0.0 k/uL (0-0.2) 03/16/21 07:07 Macrocytosis Slight 03/16/21 07:07 PT 10.6 sec (9.0-12.0) 03/16/21 07:07 INR 1.0 (<1.2) 03/16/21 07:07 APTT 21.3 sec (22.0-30.0) L 03/16/21 07:07 Sodium 144 mmol/L (135-145) 03/16/21 07:07 Potassium 3.7 mmol/L (3.5-5.5) 03/16/21 07:07 Chloride 112 mmol/L (96-109) H 03/16/21 07:07 Carbon Dioxide 25.1 mmol/L (21.6-31.8) 03/16/21 07:07 Anion Gap 6.90 mmol/L (4.00-12.00) 03/16/21 07:07 BUN 13.0 mg/dL (9.0-27.0) 03/16/21 07:07 Creatinine 0.6 mg/dL (0.6-1.5) 03/16/21 07:07 Est GFR (CKD-EPI)AfAm 105.5 (60.0-200.0) 03/16/21 07:07 Est GFR (CKD-EPI)NonAf 91.1 (60.0-200.0) 03/16/21 07:07 BUN/Creatinine Ratio 21.67 Ratio (12.00-20.00) H 03/16/21 07:07 Glucose 86 mg/dL (70-110) 03/16/21 07:07 Uric Acid 5.7 mg/dL (2.9-7.7) 03/16/21 07:07 Calcium 8.2 mg/dL (8.7-10.3) L 03/16/21 07:07 Phosphorus 4.6 mg/dL (2.4-5.1) 03/16/21 07:07 Magnesium 1.4 mg/dL (1.5-2.4) L 03/16/21 07:07 Iron 68 ug/dL (50-170) 03/15/21 14:39 TIBC 276 ug/dL (228-460) 03/15/21 14:39 % Saturation 24.64 (12.00-45.00) 03/15/21 14:39 Ferritin 608.4 ng/mL (10.0-291.0) H 03/15/21 14:39 Total Bilirubin 0.4 mg/dL (0.2-1.2) 03/16/21 07:07 AST 49 U/L (13-35) H 03/16/21 07:07 ALT 61 U/L (8-44) H 03/16/21 07:07 Alkaline Phosphatase 155 U/L (41-126) H 03/16/21 07:07 Lactate Dehydrogenase 151 U/L (120-246) 03/16/21 07:07 Total Protein 5.5 g/dL (6.2-8.2) L 03/16/21 07:07 Albumin 3.70 g/dL (3.80-4.90) L 03/16/21 07:07 Globulin 1.8 g/dL (1.6-3.3) 03/16/21 07:07 Albumin/Globulin Ratio 2.06 g/dL (1.60-3.17) 03/16/21 07:07 Vitamin B12 >4000.0 pg/mL (211-911) H 03/15/21 14:39 Folate 16.4 ng/mL 03/15/21 14:39 TSH 3.320 uIU/mL (0.350-5.500) 03/15/21 14:39 Urine Color Colorless 03/16/21 09:13 Urine Appearance Clear (Clear) 03/16/21 09:13 Urine pH 6.0 (5.0-8.0) 03/16/21 09:13 Ur Specific Xenia 1.002 (1.001-1.035) 03/16/21 09:13 Urine Protein Negative (Negative) 03/16/21 09:13 Urine Glucose (UA) Negative (Negative) 03/16/21 09:13 Urine Ketones Negative (Negative) 03/16/21 09:13 Urine Blood Negative (Negative) 03/16/21 09:13 Urine Nitrite Negative (Negative) 03/16/21 09:13 Urine Bilirubin Negative (Negative) 03/16/21 09:13 Urine Urobilinogen <2.0 mg/dL (<2.0) 03/16/21 09:13 Ur Leukocyte Esterase Small (Negative) H 03/16/21 09:13 Urine RBC <1 /hpf (0-5) 03/16/21 09:13 Urine WBC 15 /hpf (0-5) H 03/16/21 09:13 Ur Squamous Epith Cells <1 /hpf (0-4) 03/16/21 09:13 Urine Bacteria Occasional /hpf (None) H 03/16/21 09:13 Assessment and Plan Plan: 1. Diffuse B cell lymphoma,, with high-grade follicular lymphoma, with CD19 and CD20 CD10 positive for lymphocytic population, PET/CT in 2019 shows multiple uptake, bilateral submandibular bilateral supraclavicular or bilateral axillary v spleen retrocrural , retroperitoneal, pelvic and inguinal involvement, also with multiple hypermetabolic foci seen in the sternum, left anterior mid tibia, and right humeral head. Patient's undergoing our dust ice regimen, for salvage chemotherapy, followed closely by oncology. Her currently. Most of her adenopathy has resolved, currently without any new symptomatology, including nausea vomiting lightheadedness dizziness, no chest pain, no calf swelling or tenderness,. She is here for 2 cycles off ICE currently on dexamethasone 10 mg IV every 24 hours, History of retinal detachment August 2020, no current new eye symptoms 3. History of GERD 4 History of the hearing disorder 5 Prior history of vertigo 6 Pyuria, noted, no current urinary complaints, cultures are requested, empirically start oral Ceftin, await cultures, 7 GI prophylaxis DVT prophylaxis, Lovenox 40, on Protonix 40 mg twice a day Senokot and Zyprexa Zofran for symptomatic control of nausea and vomiting 8 ALLERGIC rhinitis, on Claritin 10 9. Chemotherapy related anemia, growth colony stimulating factors started by oncology Thank you for the consultation, we are going to follow her which she will, Kiersten this hospital stay, and the recommendations to her treatment would be based on clinical progress, we will follow closely
[2021-03-16] MEDS: OLANZapine 5 MG TAB PO SCH (20:41)
[2021-03-16] MEDS: MAGNESIUM OXIDE 400 MG TAB PO SCH (20:42)
[2021-03-17] MEDS: ONDANSETRON 4 MG TAB PO PRN (04:56)
[2021-03-17 06:23] LABS: Basophils % (A) 0 %; Eosinophils % (A) 0 %; HCT 25.8 % (34.0-46.0); HGB 8.5 gm/dL (11.4-16.0); Hypochromasia Slight; Lymphocytes # (A) 0.2 k/uL (1.0-4.8); Lymphocytes % (A) 2 %; MCHC 33.1 g/dL (31.0-37.0); MCV 108.6 fL (80.0-100.0); Macrocytosis Moderate; Mean Platelet Volume 7.9; Monocytes # (A) 0.3 k/uL (0-1.0); Monocytes % (A) 4 %; Neutrophils # (A) 8.6 k/uL (1.3-7.7); Neutrophils % (A) 93 %; Platelet Count 306 k/uL (150-450); RBC 2.37 m/uL (3.80-5.40); RDW 15.4 % (11.5-15.5); WBC 9.2 k/uL (3.8-10.6)
[2021-03-17 06:35] LABS: ALT 57 U/L (4-34); AST 51 U/L (14-36); African American GFR (CKD) >90 (>60 ml/min/1.73 sqM); Albumin 3.1 g/dL (3.5-5.0); Albumin/Globulin Ratio 1.6; Alkaline Phosphatase 102 U/L (38-126); Anion Gap 7 mmol/L; Blood Urea Nitrogen 11 mg/dL (7-17); Carbon Dioxide 24 mmol/L (22-30); Chloride 114 mmol/L (98-107); Globulin 1.9 g/dL; Glucose 76 mg/dL (74-99); Non-African American GFR(CKD) >90 (>60 ml/min/1.73 sqM); Potassium 3.8 mmol/L (3.5-5.1); Sodium 145 mmol/L (137-145); Total Bilirubin 0.4 mg/dL (0.2-1.3)
[2021-03-17] MEDS: SENNOSIDES-DOCUSATE SODIUM 1 EACH TAB PO SCH (08:53)
[2021-03-17] MEDS: LORATADINE 10 MG TAB PO SCH (08:53)
[2021-03-17] MEDS: LACTOBACILLUS ACIDOPH & BULGAR 1 EACH PACKET PO SCH (08:53)
[2021-03-17] MEDS: CHOLECALCIFEROL 25 MCG (1000 IU) TABLET PO SCH (08:53)
[2021-03-17] MEDS: PANTOPRAZOLE 40 MG TABLET PO SCH ×2 (08:53→17:43)
[2021-03-17] MEDS: MAGNESIUM OXIDE 400 MG TAB PO SCH ×2 (08:53→23:03)
[2021-03-17] MEDS: SALT AND SODA MOUTHWASH 1,000 ML PO SCH ×4 (08:54→23:04)
[2021-03-17] MEDS: ZINC SULFATE 220 MG CAP PO SCH (08:54)
[2021-03-17] MEDS: ENOXAPARIN 40 MG/0.4 ML SYRINGE SQ SCH (08:56)
[2021-03-17] MEDS: SODIUM CHLORIDE 0.9% 1,000 ML IV SCH ×3 (08:57→23:04)
--- NOTE | 2021-03-17 10:51 | P.PN ---
Subjective Progress Note Date: 03/17/21 Principal diagnosis: Timed Chemo Day 3 of timed chemotherapy, tolerating well. Fever this am at 1100, FULL moran cultures are to be done when patient is on chemo and spikes fevr. Stat Blood cultures (one line and one peripheral), chest xray and urinalysis with culture. Fever did go down with tylenol although this will likely mask if infective agent. Discussed with Nursing and to draw cultures prior to antibiotics ordered by medical team. Objective - Vital Signs Vital signs: Vital Signs Temp 98 F 03/17/21 08:00 Pulse 68 03/17/21 08:00 Resp 16 03/17/21 08:00 BP 122/80 03/17/21 08:00 Pulse Ox 96 03/17/21 08:00 Intake & Output 03/16/21 03/17/21 03/17/21 18:59 06:59 18:59 Intake Total 3100 1500 Balance 3100 1500 Intake: Intake, IV Titration 1500 1500 Amount Sodium Chloride 0.9% 1, 1500 1500 000 ml @ 125 mls/hr IV . Q8H [facility] Rx#:[id number] Oral 1600 Other: # Voids 1 - Exam - Constitutional General appearance: cooperative, no acute distress - EENT Eyes: EOMI, PERRLA ENT: NA/AT, normal oropharynx - Neck Neck: normal ROM - Respiratory Respiratory: bilateral: CTA - Cardiovascular Rhythm: regular - Gastrointestinal General gastrointestinal: soft - Integumentary Integumentary: pale - Neurologic Neurologic: CNII-XII intact - Musculoskeletal Musculoskeletal: generalized weakness, strength equal bilaterally - Psychiatric Psychiatric: A&O x's 3, appropriate affect, intact judgment & insight - Labs CBC & Chem 7: 03/17/21 05:33 03/17/21 05:33 Labs: Abnormal Lab Results - Last 24 Hours (Table) 03/16/21 03/17/21 03/17/21 Range/Units 07:07 05:33 05:33 RBC 2.37 L (3.80-5.40) m/uL Hgb 8.5 L (11.4-16.0) gm/dL Hct 25.8 L (34.0-46.0) % MCV 108.6 H (80.0-100.0) fL MCH 36.0 H (25.0-35.0) pg Neutrophils # 8.6 H (1.3-7.7) k/uL Lymphocytes # 0.2 L (1.0-4.8) k/uL Chloride 112 H 114 H (96-109) mmol/L Creatinine 0.45 L (0.52-1.04) mg/dL BUN/Creatinine Ratio 21.67 H (12.00-20.00) Ratio Calcium 8.2 L 8.0 L (8.7-10.3) mg/dL Magnesium 1.4 L (1.5-2.4) mg/dL AST 49 H 51 H (13-35) U/L ALT 61 H 57 H (8-44) U/L Alkaline Phosphatase 155 H (41-126) U/L Total Protein 5.5 L 5.0 L (6.2-8.2) g/dL Albumin 3.70 L 3.1 L (3.80-4.90) g/dL Microbiology - Last 24 Hours (Table) 03/16/21 09:18 Urine Culture - Preliminary Urine,Voided Assessment and Plan (1) Non-Hodgkin lymphoma Current Visit: No Status: Acute Code(s): C85.90 - NON-HODGKIN LYMPHOMA, UNSPECIFIED, UNSPECIFIED SITE SNOMED Code(s): 343572750 Plan: Cycle 2, day Day 3 Hypomagnesium - Increase Mag Oxide BID CBC Daily CMP Mag phos and Uric acid daily home meds VTE and PPI Medical Management Consult Fever Today: - Moran Cultures then Abx coverage while await - 24 hours fever free without tylenol prior to discharge - Patient to be up in chair with all meals and walking daily - Incentive spirometer to bedside.
--- NOTE | 2021-03-17 13:14 | P.PN ---
Subjective Progress Note Date: 03/17/21 This is a 70-year-old pleasant female, patient of Dr. Benjamin Jaime, has underlying history of lump in the posterior cervical anterior cervical region, for which it was biopsied early April [address] 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 Patient had PET scan CT on 06/15/2019, has multiple areas of uptake including bilateral submental or bilateral supraclavicular or bilateral axillary, mediastinal spleen retrocrural, retroperitoneal as well as pelvic and inguinal areas. There is also hypermetabolic foci seen in the sternum, or chest involvement in the left anterior mid rib and right humeral head. Patient was started on ironOn 06/2019, requiring 6 cycles, completed in September 2019. Notes were reviewed from oncology, patient now comes seen for salvage chemotherapy with ourice regimen, Patient denies any nausea vomiting at this time, no abdominal pain, no dizziness lightheadedness, no headache, no paresthesias, patient has underlying history off I disorder with retinal detachment in August 2020, GERD, hearing disorder with deafness, labs were reviewed, vitals are stable, hemoglobin 8.9, double basic count 7.1, INR 1.0, creatinine 0.6, glucose of 86, uric acid of 5.7, liver function test elevated with increased over the past 24 hours, related to the regimen. Current AST is 49 ALT 61 alkaline forced 155, LDH of 151. B12 over 4000, TSH 3.3 urinalysis shows some pyuria, however patient is not complaining of any difficulty, requested another urinalysis culture, midstream urine. 03/17, patient feels feverish today, temperature of 101.8, no dysuria, however some nausea, she does have some pyuria on yesterday's urinalysis evaluation, Rocephin was started today, pending urine culture. Patient does not have any significant no pain, no vomiting no diarrhea, WBC count of 9.2 hemoglobin 8.5, platelet count off 306, potassium 3.8, creatinine of 0.45, sodium of 145 urine culture is pending, await culture report, patient is completing the third cycle of ICE regimen tomorrow which is Third day of cycle Review of Systems Constitutional: Reports as per HPI, Denies anorexia, Denies chills, Denies chronic headaches, Denies chronic pain, Denies daytime sleepiness, Denies fatigue, Denies fever, Denies lethargy, Denies malaise, Denies night sweats, Denies poor appetite, Denies sweats, Denies weakness, Denies weight gain, Denies weight loss Ears, nose, mouth and throat: Reports as per HPI, Denies ant. neck pain, Denies bleeding gums, Denies dental pain, Denies dysphagia, Denies epistaxis, Denies headache, Denies hoarseness, Denies mouth pain, Denies nasal congestion, Denies nasal discharge, Denies neck fullness/pressure, Denies neck lump, Denies nose p ain, Denies odynophagia, Denies post-nasal drip, Denies sinus pain, Denies sinus pressure, Denies swelling in mouth, Denies swelling in throat, Denies sore throat, Denies vertigo, Denies voice changes Cardiovascular: Reports as per HPI, Denies chest pain, Denies claudication, Denies decreased exercise tolerance, Denies dyspnea on exertion, Denies edema, Denies high blood pressure, Denies irregular heart beat, Denies leg edema, Denies lightheadedness, Denies orthopnea, Denies palpitations, Denies paroxysmal nocturnal dyspnea, Denies phlebitis, Denies rapid heart beat, Denies shortness of breath, Denies syncope Respiratory: Reports as per HPI Gastrointestinal: Reports as per HPI Genitourinary: Reports as per HPI, Denies abnormal vaginal bleeding, Denies decreased libido, Denies difficulty conceiving, Denies difficulty voiding, Denies dysmenorrhea, Denies dyspareunia, Denies dysuria, Denies flank pain, Denies genital sores, Denies hematuria, Denies hot flashes, Denies incomplete emptying, Denies kidney stones, Denies menorrhagia, Denies mixed incontinence, Denies nocturia, Denies pelvic pain, Denies post void dribbling, Denies , Denies prolapse symptoms, Denies stress incontinence, Denies urge incontinence, Denies urgency, Denies urinary frequency, Denies vaginal discharge, Denies vaginal dryness, Denies vaginal itching, Denies vaginal odor Menstruation: Reports as per HPI, Denies amenorrhea, Denies amenorrhea on BC, Denies currently menstrual, Denies cycle < 21 days, Denies cycle > 35 days, Denies cycle variable, Denies menses 1-7 days, Denies menses 8 or > days, Denies menses variable, Denies period heavy, Denies period light, Denies period normal, Denies period spotting, Denies post hysterectomy, Denies postmenopausal, Denies premenarcheal Musculoskeletal: Reports as per HPI, Denies arm numbness/tingling, Denies atrophy, Denies fractures, Denies frequent falls, Denies gait dysfunction, Denies hot joints, Denies leg numbness/tingling, Denies limitation of motion, Denies loss of height, Denies low back pain, Denies morning stiffness, Denies muscle cramps, Denies muscle weakness, Denies myalgias, Denies neck pain, Denies neck stiffness, Denies prior amputations, Denies redness of joints, Denies shooting arm pain, Denies shooting leg pain Integumentary: Reports as per HPI, Denies acne, Denies boils, Denies brittle nails, Denies change in hair/nails, Denies color changes, Denies darkening of skin, Denies depigmentation, Denies dryness, Denies foot/leg ulcers, Denies growths, Denies hirsutism, Denies lesions, Denies onychomycosis, Denies pruritus, Denies rash, Denies sores, Denies striae, Denies unusual bruising, Denies wounds Neurological: Reports as per HPI, Denies aphasia, Denies ataxia, Denies balance difficulties, Denies burning pain, Denies change in mentation, Denies change in smell/taste, Denies change in speech, Denies confusion, Denies convulsions, Denies double vision, Denies gait dysfunction, Denies head injury, Denies headaches, Denies hearing difficulties, Denies lack of coordination, Denies loss of vision, Denies memory loss, Denies migraines, Denies motor disturbance, Denies numbness, Denies paralysis, Denies paresthesias, Denies seizures, Denies sensory deficit, Denies spasticity, Denies syncope, Denies tic, Denies tingling, Denies transient paralysis, Denies tremors, Denies vertigo, Denies weakness, Denies visual changes Psychiatric: Reports as per HPI Endocrine: Reports as per HPI, Denies cold intolerance, Denies deepening of the voice, Denies excessive sweating, Denies excessive thirst, Denies fatigue, Denies flushing, Denies heat intolerance, Denies high blood sugars, Denies increase in ring/shoe/hat size, Denies low blood sugars, Denies nocturia, Denies palpitations, Denies polydipsia, Denies polyphagia, Denies polyuria, Denies proptosis, Denies recent glucocorticoid use, Denies thyroid mass, Denies weight change Hematologic/Lymphatic: Reports as per HPI Objective - Vital Signs Vital signs: Vital Signs Temp 99.1 F 03/17/21 12:34 Pulse 93 03/17/21 11:27 Resp 18 03/17/21 11:27 BP 109/65 03/17/21 11:27 Pulse Ox 93 L 03/17/21 11:27 Intake & Output 03/16/21 03/17/21 03/17/21 18:59 06:59 18:59 Intake Total 3100 1500 Balance 3100 1500 Intake: Intake, IV Titration 1500 1500 Amount Sodium Chloride 0.9% 1, 1500 1500 000 ml @ 125 mls/hr IV . Q8H PRIETO Rx#:[id number] Oral 1600 Other: # Voids 1 - Constitutional General appearance: Present: cooperative, no acute distress - EENT Eyes: Present: EOMI, PERRLA - Neck Thyroid: bilateral: normal size - Respiratory Respiratory: bilateral: CTA, negative: diminished, dullness, rales - Cardiovascular Rhythm: regular Heart sounds: normal: S1, S2 Abnormal Heart Sounds: Absent: systolic murmur, diastolic murmur, rub, S3 Gallop, S4 Gallop, click, other - Gastrointestinal General gastrointestinal: Present: normal bowel sounds, soft - Integumentary Integumentary: Present: normal - Labs CBC & Chem 7: 03/17/21 05:33 03/17/21 05:33 Labs: Abnormal Lab Results - Last 24 Hours (Table) 03/17/21 03/17/21 Range/Units 05:33 05:33 RBC 2.37 L (3.80-5.40) m/uL Hgb 8.5 L (11.4-16.0) gm/dL Hct 25.8 L (34.0-46.0) % MCV 108.6 H (80.0-100.0) fL MCH 36.0 H (25.0-35.0) pg Neutrophils # 8.6 H (1.3-7.7) k/uL Lymphocytes # 0.2 L (1.0-4.8) k/uL Chloride 114 H (98-107) mmol/L Creatinine 0.45 L (0.52-1.04) mg/dL Calcium 8.0 L (8.4-10.2) mg/dL AST 51 H (14-36) U/L ALT 57 H (4-34) U/L Total Protein 5.0 L (6.3-8.2) g/dL Albumin 3.1 L (3.5-5.0) g/dL Microbiology - Last 24 Hours (Table) 03/16/21 09:18 Urine Culture - Preliminary Urine,Voided Assessment and Plan Plan: 1. Diffuse B cell lymphoma,, with high-grade follicular lymphoma, with CD19 and CD20 CD10 positive for lymphocytic population, PET/CT in 2019 shows multiple uptake, bilateral submandibular bilateral supraclavicular or bilateral axillary v spleen retrocrural , retroperitoneal, pelvic and inguinal involvement, also with multiple hypermetabolic foci seen in the sternum, left anterior mid tibia, and right humeral head. Patient's undergoing our dust ice regimen, for salvage chemotherapy, followed closely by oncology. Her currently. Most of her adenopathy has resolved, currently without any new symptomatology, including nausea vomiting lightheadedness dizziness, no chest pain, no calf swelling or tenderness,. She is here for 2 cycles off ICE currently on dexamethasone 10 mg IV every 24 hours, 2. Febrile illness, with recent pyuria noted on examination,, IV Rocephin to be started, await urine cultures. Monitor for aspiration, differential includes chemotherapy related pyrexia, has Tylenol for use. we are starting on History of retinal detachment August 2020, no current new eye symptoms 3. History of GERD 4 History of the hearing disorder 5 Prior history of vertigo 6 Pyuria, noted, no current urinary complaints, cultures are requested, await cultures, start on IV Rocephin 7 GI prophylaxis DVT prophylaxis, Lovenox 40, on Protonix 40 mg twice a day Senokot and Zyprexa Zofran for symptomatic control of nausea and vomiting 8 ALLERGIC rhinitis, on Claritin 10 9. Chemotherapy related anemia, growth colony stimulating factors started by oncology Thank you for the consultation, we are going to follow her which she will, Kiersten this hospital stay, and the recommendations to her treatment would be based on clinical progress, we will follow closely
--- NOTE | 2021-03-17 14:46 | XR ---
EXAMINATION TYPE: XR chest 2V DATE OF EXAM: 03/17/2021 COMPARISON: NONE HISTORY: Fever and lymphoma. TECHNIQUE: Frontal and lateral views of the chest are obtained. FINDINGS: There is a right central venous catheter in place with tip overlying the right atrial/SVC junction. There is a small left pleural effusion with adjacent small opacity. No pneumothorax seen. The cardiac silhouette size is within normal limits. The osseous structures are intact. IMPRESSION: Small left pleural effusion with adjacent atelectasis.
[2021-03-17] MEDS: FAMOTIDINE 20 MG/2 ML VIAL IVP SCH (16:49)
[2021-03-17] MEDS: DEXAMETHASONE SOD PHOSPHATE 10 MG/ML 1 ML VIAL IV SCH (16:50)
[2021-03-17] MEDS: ONDANSETRON 16 MG in SODIUM CHLORIDE 0.9% 50 ML IVPB SCH (16:50)
[2021-03-17] MEDS: ETOPOSIDE 170 MG in SODIUM CHLORIDE 0.9% 500 ML 500 ML IV SCH (17:43)
[2021-03-17 18:25] LABS: Appearance,Urine Clear (Clear); Bilirubin,Urine Negative (Negative); Blood,Urine Negative (Negative); Color,Urine Light Yellow; Glucose,Urine (UA) Negative (Negative); Ketones,Urine 2+ (Negative); Leukocyte Esterase,Urine Negative (Negative); Nitrite,Urine Negative (Negative); Protein,Urine Negative (Negative); Specific Gravity,Urine 1.008 (1.001-1.035); Urobilinogen,Urine <2.0 mg/dL (<2.0)
[2021-03-17] MEDS: OLANZapine 5 MG TAB PO SCH (23:03)
[2021-03-18 05:43] VITALS: BP 115/71; PULSE 70; RESP 16; TEMP 97.9
[2021-03-18] MEDS: CHOLECALCIFEROL 25 MCG (1000 IU) TABLET PO SCH (08:51)
[2021-03-18] MEDS: PANTOPRAZOLE 40 MG TABLET PO SCH (08:51)
[2021-03-18] MEDS: ZINC SULFATE 220 MG CAP PO SCH (08:51)
[2021-03-18] MEDS: ENOXAPARIN 40 MG/0.4 ML SYRINGE SQ SCH (08:51)
[2021-03-18] MEDS: SENNOSIDES-DOCUSATE SODIUM 1 EACH TAB PO SCH (08:52)
[2021-03-18] MEDS: LACTOBACILLUS ACIDOPH & BULGAR 1 EACH PACKET PO SCH (08:52)
[2021-03-18] MEDS: SALT AND SODA MOUTHWASH 1,000 ML PO SCH (08:52)
[2021-03-18] MEDS: MAGNESIUM OXIDE 400 MG TAB PO SCH (08:52)
[2021-03-18] MEDS: LORATADINE 10 MG TAB PO SCH (08:52)
[2021-03-18 09:57] LABS: Basophils % (A) 1 %; Eosinophils % (A) 1 %; HCT 24.7 % (34.0-46.0); HGB 8.1 gm/dL (11.4-16.0); Lymphocytes # (A) 0.2 k/uL (1.0-4.8); Lymphocytes % (A) 6 %; MCH 34.2 pg (25.0-35.0); MCHC 32.7 g/dL (31.0-37.0); MCV 104.7 fL (80.0-100.0); Macrocytosis Moderate; Monocytes # (A) 0.1 k/uL (0-1.0); Monocytes % (A) 2 %; Neutrophils # (A) 3.2 k/uL (1.3-7.7); Neutrophils % (A) 90 %; Platelet Count 297 k/uL (150-450); RBC 2.36 m/uL (3.80-5.40); RDW 14.9 % (11.5-15.5); WBC 3.5 k/uL (3.8-10.6)
[2021-03-18 10:32] LABS: ALT 63 U/L (4-34); AST 34 U/L (14-36); African American GFR (CKD) >90 (>60 ml/min/1.73 sqM); Albumin/Globulin Ratio 1.4; Alkaline Phosphatase 113 U/L (38-126); Anion Gap 6 mmol/L; Blood Urea Nitrogen 14 mg/dL (7-17); Calcium 7.8 mg/dL (8.4-10.2); Carbon Dioxide 25 mmol/L (22-30); Chloride 112 mmol/L (98-107); Globulin 2.1 g/dL; Glucose 99 mg/dL (74-99); Non-African American GFR(CKD) >90 (>60 ml/min/1.73 sqM); Potassium 3.5 mmol/L (3.5-5.1); Sodium 143 mmol/L (137-145); Total Bilirubin 0.3 mg/dL (0.2-1.3); Total Protein 5.1 g/dL (6.3-8.2)
== END 2021-03-18 11:43 | disposition home or self-care (01) | DRG 847 ==
LOC: 5NMEDONC 08:51
PROVIDERS: ADMIT Internal Medicine Hematology & Oncology; ATTEND Internal Medicine Hematology & Oncology
DX: Z51.11 Encounter for antineoplastic chemotherapy (principal); C83.30 Diffuse large B-cell lymphoma, unspecified site; C82.90 Follicular lymphoma, unspecified, unspecified site; H91.91 Unspecified hearing loss, right ear; E83.42 Hypomagnesemia; K21.9 Gastro-esophageal reflux disease without esophagitis; Z90.710 Acquired absence of both cervix and uterus; Z87.891 Personal history of nicotine dependence; Z82.49 Family history of ischemic heart disease and other diseases of the circulatory system; Z82.3 Family history of stroke
CPT/HCPCS: 71046; 80053; 81001; 81003; 82607; 82728; 82746; 83540; 83550; 83615; 83735; 83921; 84100; 84443; 84550; 85025; 85610; 85730; 87040; 87077; 87086; 87186; 93005

== ENCOUNTER 2021-04-11 08:54 | Inpatient (IN) | payer MEDICARE ==
[2021-04-11 10:43] LABS: Anisocytosis Slight; Basophils % (A) 1 %; Eosinophils % (A) 0 %; HCT 27.5 % (34.0-46.0); HGB 8.9 gm/dL (11.4-16.0); Hypochromasia Slight; Lymphocytes # (A) 0.5 k/uL (1.0-4.8); Lymphocytes % (A) 7 %; MCH 34.3 pg (25.0-35.0); MCHC 32.4 g/dL (31.0-37.0); Macrocytosis Marked; Mean Platelet Volume 7.4; Monocytes # (A) 0.6 k/uL (0-1.0); Monocytes % (A) 7 %; Neutrophils # (A) 6.8 k/uL (1.3-7.7); Neutrophils % (A) 84 %; Platelet Count 216 k/uL (150-450); Poikilocytosis Slight; RDW 19.8 % (11.5-15.5); WBC 8.2 k/uL (3.8-10.6)
[2021-04-11 10:57] LABS: ALT 32 U/L (4-34); AST 33 U/L (14-36); African American GFR (CKD) >90 (>60 ml/min/1.73 sqM); Albumin 4.1 g/dL (3.5-5.0); Alkaline Phosphatase 185 U/L (38-126); Anion Gap 9 mmol/L; Blood Urea Nitrogen 15 mg/dL (7-17); Calcium 9.2 mg/dL (8.4-10.2); Carbon Dioxide 25 mmol/L (22-30); Chloride 106 mmol/L (98-107); Globulin 2.1 g/dL; Glucose 95 mg/dL (74-99); Non-African American GFR(CKD) >90 (>60 ml/min/1.73 sqM); Phosphorus 4.6 mg/dL (2.5-4.5); Potassium 4.8 mmol/L (3.5-5.1); Sodium 140 mmol/L (137-145); Total Bilirubin 0.3 mg/dL (0.2-1.3); Total Protein 6.2 g/dL (6.3-8.2); Uric Acid 4.7 mg/dL (3.7-7.4)
[2021-04-11] MEDS ORDERED: ACETAMINOPHEN TAB 325 MG TAB PO PRN (11:21)
[2021-04-11] MEDS ORDERED: MECLIZINE 25 MG TAB PO PRN (11:21)
[2021-04-11] MEDS ORDERED: ONDANSETRON 4 MG TAB PO PRN (11:21)
[2021-04-11] MEDS ORDERED: ONDANSETRON 4 MG/2 ML VIAL IVP PRN (11:22)
--- NOTE | 2021-04-11 11:30 | P.HPIM ---
History of Present Illness H&P Date: 04/11/21 Chief Complaint: NHL Ms. Rodriguez is a pleasant white female, in overall good health and baseline. The patient had felt a lump just above her right collarbone, as well as another lump in the left upper thigh, in early 05/17. These seem to increased progressively in size. Around the same time she also developed progressive symptoms of fatigue, sweats, and decreased appetite. She was seen by her primary care physician and referred to Dr. benson. She had an excisional biopsy on 05/14/19 at both sites. The right supraclavicular node showed replacement by necrotic nonviable tissue possible diffuse large B-cell lymphoma. 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 Flow cytometric analysis confirmed the presence of CD19, CD20 and CD10 positive lymphocytic population. MYC testing was ordered and came back negative ruling out doublet/triple hit pathology. The patient had a PET scan done on 06/15/19, they showed multiple areas of uptake, including bilateral submandibular, bilateral supraclavicular, bilateral axillary, mediastinal, spleen, retrocrural and retroperitoneal as well as pelvic and inguinal. Multiple hypermetabolic foci were seen along the sternum ,. Osseous involvement was also noted in the left anterior mid rib and right humeral head. She was referred here for further evaluation and recommendations She denied any prior history of malignancy She was started on R - CHOP on 07/07/19 and is s/p 6 cycles, completing those on 10/21/19 She was hospitalized after C 1 with low BP, dehydration, pancytopenia and electrolyte abnormalities. She improved with supportive treatment and was able to have cycle 2 on schedule.. Neulasta was added with cycle2 She tripped and fell in mid 11/18, and dislocated her rt shoulder. This has resolved. She was seen at her own request on 01/11/21. She had noted 1-2 lumps just behind the angle of the rt mandible in mid 12/17. She was seen by her PCP and was asked to f/u. She has mild tenderness associated. labs were normal. PET scan showed uptake in the right cervical and supraclavicular nodes, as well as and a left inguinal node. She was also referred for repeat biopsy, performed on 02/06/21. this again revealed diffuse large B-cell lymphoma. She denied any fevers/chills/n/vomiting. she has not noted any new adeno jadiel. Appetite is overall satisfactory. Blood pressure has been mostly stable in the normal range. Bowel movements are fairly normal. Her left groin mass has not recurred. This has now essentially resolved and further follow-up was not recommended by surgery. She had eye surgery for retinal detachment in 09/17 the pathology report and implications were discussed in detail with the patient and her family. This is essentially the same histology, with recurrence after slightly more than a year post R-CHOP. Overall burden of disease is comparatively mild for PET scan. Her performance status is normal. - the treatment options per guidelines were discussed in detail with her and her family. Given her poor performance status, I would recommend salvage chemotherapy with R-ICE regimen. She began Salvage with R-ICE and is admitted for cycle three today Review of Systems All systems: negative Constitutional: Reports as per HPI Past Medical History Past Medical History: Cancer, Eye Disorder, GERD/Reflux, Hearing Disorder / Deafness Additional Past Medical History / Comment(s): 04/2019 follicular lymphoma tx with chemo/immunotherapy, 01/2021 diagnosed with diffuse large B cell lymphoma-here for 3rd round chemo. Other hx: vertigo, sinus problems, cataract L eye, deaf R ear. History of Any Multi-Drug Resistant Organisms: None Reported Past Surgical History: Appendectomy, Hysterectomy, Tonsillectomy Additional Past Surgical History / Comment(s): excisional biopsy above R clavicle/R thigh mass, 02/06/21 R mandible biopsty, R cataract removal/lens implant, bilateral eye surgery for retinal tear. Past Anesthesia/Blood Transfusion Reactions: No Reported Reaction Additional Past Anesthesia/Blood Transfusion Reaction / Comment(s): Pt has received blood in past without reaction. Past Psychological History: No Psychological Hx Reported Additional Psychological History / Comment(s): Pt resides with her spouse and a dog. She is independent. Smoking Status: Former smoker Additional Past Alcohol Use History / Comment(s): Pt started smoking in 1969 and quit in 1990 - Past Family History Father Family Medical History: Coronary Artery Disease (CAD), CVA/TIA Mother Family Medical History: No Reported History, Coronary Artery Disease (CAD) Brother(s) Family Medical History: No Reported History Sister(s) Family Medical History: No Reported History Medications and Allergies Home Medications Medication Instructions Recorded Confirmed Type L.acidoph,Paracasei, B.lactis 1 cap PO DAILY 07/06/19 04/11/21 History [Probiotic] Loratadine 10 mg PO DAILY 07/06/19 04/11/21 History Meclizine [Antivert] 25 mg PO TID PRN 07/06/19 04/11/21 History Famotidine [Pepcid] 20 mg PO BID 07/28/19 04/11/21 History Acetaminophen Tab [Tylenol] 325 mg PO Q4H PRN 02/23/21 04/11/21 History Cholecalciferol (Vitamin D3) 125 mcg PO DAILY 02/23/21 04/11/21 History [Vitamin D3 (5000 Iu)] Magnesium Oxide [Magox 400] 400 mg PO DAILY 02/23/21 04/11/21 History Zinc 50 mg PO DAILY 02/23/21 04/11/21 History Ondansetron HCl [Zofran] 4 mg PO Q6HR PRN #30 tab 02/26/21 04/11/21 Rx Pantoprazole [Protonix] 40 mg PO AC-BID tablet. 03/18/21 04/11/21 Rx Allergies Allergy/AdvReac Type Severity Reaction Status Date / Time No Known Allergies Allergy Verified 04/11/21 10:53 Physical Exam Vitals: Vital Signs Temp Pulse Resp BP Pulse Ox 04/11/21 09:53 98 F 71 14 118/77 97 Intake and Output 04/10/21 04/11/21 04/11/21 22:59 06:59 14:59 Other: Weight 67.631 kg - Constitutional General appearance: cooperative, no acute distress - EENT Eyes: EOMI, PERRLA ENT: NA/AT, normal oropharynx - Neck Neck: normal ROM - Respiratory Respiratory: bilateral: CTA - Cardiovascular Rhythm: regular - Gastrointestinal General gastrointestinal: soft - Integumentary Integumentary: pale - Neurologic Neurologic: CNII-XII intact - Musculoskeletal Musculoskeletal: generalized weakness, strength equal bilaterally - Psychiatric Psychiatric: A&O x's 3, appropriate affect, intact judgment & insight Results CBC & Chem 7: 04/11/21 10:20 04/11/21 10:20 Labs: Abnormal Lab Results - Last 24 Hours (Table) 04/11/21 04/11/21 Range/Units 10:20 10:20 RBC 2.60 L (3.80-5.40) m/uL Hgb 8.9 L (11.4-16.0) gm/dL Hct 27.5 L (34.0-46.0) % MCV 106.0 H (80.0-100.0) fL RDW 19.8 H (11.5-15.5) % Lymphocytes # 0.5 L (1.0-4.8) k/uL Macrocytosis Marked A Phosphorus 4.6 H (2.5-4.5) mg/dL Alkaline Phosphatase 185 H (38-126) U/L Total Protein 6.2 L (6.3-8.2) g/dL Thrombosis Risk Factor Assmnt - DVT/VTE Prophylaxis DVT/VTE Prophylaxis: Pharmacologic Prophylaxis ordered - Choose All That Apply Each Risk Factor Represents 2 Points: Age 61-74 years, Malignancy Thrombosis Risk Factor Assessment Total Risk Factor Score: 4 Thrombosis Risk Factor Assessment Level: Moderate Risk Assessment and Plan (1) Non-Hodgkin lymphoma Current Visit: No Status: Acute Code(s): C85.90 - NON-HODGKIN LYMPHOMA, UNSPECIFIED, UNSPECIFIED SITE SNOMED Code(s): 700902774 (2) Pancytopenia due to antineoplastic chemotherapy Current Visit: No Status: Acute Code(s): D61.810 - ANTINEOPLASTIC CHEMOTHERAPY INDUCED PANCYTOPENIA; T45.1X5A - ADVERSE EFFECT OF ANTINEOPLASTIC AND IMMUNOSUP DRUGS, INIT SNOMED Code(s): 054765350471368 Plan: Timed Chemotherapy with R-ICE Neulasta in office following chemotherapy Home medications ordered Medical Management team consulted Daily Labs Daily walks Physician Attest: I have completed the full history and physical and agree with above dictation, dictated as a scribe
--- NOTE | 2021-04-11 12:28 | P.CONS ---
History of Present Illness - Reason for Consult Consult date: 04/11/21 - Chief Complaint Neck mass, fatigue and decreased appetite. - History of Present Illness 70 years old female patient of Dr. Jaime and Dr. benson who was initially diagnosed with diffuse large B-cell lymphoma for which patient underwent R-CHOP on 07/17/2019 and completed on 10/21/19 noticed enlarging lymph nodes involving the right side of her neck in December 2020 and immediately unde rwent PET scan showing uptake in the right cervical and supraclavicular node and left inguinal node arm. She was referred for repeat biopsy on 02/06/21 that revealed diffuse large B-cell lymphoma edema. She is admitted for initiation of salvage chemotherapy with R-eyes regimen. Patient was evaluated at bedside in his appears to have improved. He denies any weight loss. Denies any bruising or blood loss from any source. Patient's labs were evaluated suggested WBC of 8.2 hemoglobin 8.9 MCV 106 platelet 216 macrocytosis a large. Sodium is 140 potassium 4.8 chloride 106 bicarb 25 BUN 15 creatinine 0.58 uric acid of 4.7 slightly enlarged alkaline phosphatase at 185. Vitals are stable afebrile pulse 71 respiratory rate 14 blood pressure 118/77 Review of Systems Constitutional: Denies chills, Denies fever, Denies lethargy, Denies malaise, Denies poor appetite, Denies weakness, Denies weight loss positive for fatigue Eyes: denies decreased vision, denies diplopia, denies discharge, denies pain Ears: deny: decreased hearing Ears, nose, mouth and throat: Denies dental pain, Denies headache, Denies nasal discharge, Denies nose pain Cardiovascular: Denies chest pain, Denies decreased exercise tolerance, Denies edema, Denies high blood pressure, Denies irregular heart beat, Denies palpitations, Denies paroxysmal nocturnal dyspnea, Denies rapid heart beat, Denies shortness of breath Respiratory: Denies congestion, Denies cough, Denies cough with sputum, Denies dyspnea, Denies home oxygen, Denies wheezing Gastrointestinal: Denies abdominal pain, Denies change in bowel habits, Denies coffee ground emesis, Denies early satiety, Denies excessive gas, Denies heartburn, Denies hematemesis, Denies hematochezia, Denies loss of appetite, Denies nausea, Denies vomiting Genitourinary: Denies dysuria, Denies flank pain, Denies kidney stones, Denies menorrhagia, Denies urgency, Denies urinary frequency Musculoskeletal: Denies gait dysfunction, Denies limitation of motion, Denies morning stiffness, Denies muscle cramps Integumentary: Denies rash, Denies wounds, Denies brittle nails, Denies change in hair/nails, Denies darkening of skin Neurological: Denies balance difficulties, Denies change in speech, Denies double vision, Denies gait dysfunction, Denies loss of vision, Denies motor disturbance, Denies numbness, Denies paralysis, Denies paresthesias, Denies seizures Psychiatric: Denies anxiety, Denies depression Endocrine: Denies excessive sweating, Denies excessive thirst, Denies high blood sugars, Denies palpitations Hematologic/Lymphatic: Denies easy bruising, Denies lymphadenopathy Past Medical History Past Medical History: Cancer, Eye Disorder, GERD/Reflux, Hearing Disorder / Deafness Additional Past Medical History / Comment(s): 04/2019 follicular lymphoma tx with chemo/immunotherapy, 01/2021 diagnosed with diffuse large B cell lymphoma-here for 3rd round chemo. Other hx: vertigo, sinus problems, cataract L eye, deaf R ear. History of Any Multi-Drug Resistant Organisms: None Reported Past Surgical History: Appendectomy, Hysterectomy, Tonsillectomy Additional Past Surgical History / Comment(s): excisional biopsy above R clavicle/R thigh mass, 02/06/21 R mandible biopsty, R cataract removal/lens implant, bilateral eye surgery for retinal tear. Past Anesthesia/Blood Transfusion Reactions: No Reported Reaction Additional Past Anesthesia/Blood Transfusion Reaction / Comm: Pt has received blood in past without reaction. Past Psychological History: No Psychological Hx Reported Additional Psychological History / Comment(s): Pt resides with her spouse and a dog. She is independent. Smoking Status: Former smoker Additional Past Alcohol Use History / Comment(s): Pt started smoking in 1969 and quit in 1990 - Past Family History Father Family Medical History: Coronary Artery Disease (CAD), CVA/TIA Additional Family Medical History / Comment(s): Disease at age of 70 Mother Family Medical History: Coronary Artery Disease (CAD) Brother(s) Family Medical History: No Reported History Sister(s) Family Medical History: No Reported History Medications and Allergies Home Medications Medication Instructions Recorded Confirmed Type L.acidoph,Paracasei, B.lactis 1 cap PO DAILY 07/06/19 04/11/21 History [Probiotic] Loratadine 10 mg PO DAILY 07/06/19 04/11/21 History Meclizine [Antivert] 25 mg PO TID PRN 07/06/19 04/11/21 History Famotidine [Pepcid] 20 mg PO BID 07/28/19 04/11/21 History Acetaminophen Tab [Tylenol] 325 mg PO Q4H PRN 02/23/21 04/11/21 History Cholecalciferol (Vitamin D3) 125 mcg PO DAILY 02/23/21 04/11/21 History [Vitamin D3 (5000 Iu)] Magnesium Oxide [Magox 400] 400 mg PO DAILY 02/23/21 04/11/21 History Zinc 50 mg PO DAILY 02/23/21 04/11/21 History Ondansetron HCl [Zofran] 4 mg PO Q6HR PRN #30 tab 02/26/21 04/11/21 Rx Pantoprazole [Protonix] 40 mg PO AC-BID tablet. 03/18/21 04/11/21 Rx Allergies Allergy/AdvReac Type Severity Reaction Status Date / Time No Known Allergies Allergy Verified 04/11/21 10:53 Physical Exam Vitals: Vital Signs Temp Pulse Resp BP Pulse Ox 04/11/21 09:53 98 F 71 14 118/77 97 Intake and Output 04/10/21 04/11/21 04/11/21 22:59 06:59 14:59 Other: Weight 67.631 kg - Constitutional General appearance: cooperative, no acute distress, cachectic - EENT Eyes: anicteric sclerae, PERRLA, normal appearance ENT: hearing grossly normal - Neck Neck: Fullness noted in the right side of the neck with the site of incision of biopsy noted with no redness or inflammation normal ROM, no other, no rigidity, no stridor, no thyromegaly - Respiratory Respiratory: bilateral: CTA, negative: diminished, dullness, rales, rhonchi, port placed in the left chest wall - Cardiovascular Rhythm: regular Heart sounds: normal: S1, S2 Abnormal Heart Sounds: no systolic murmur, no diastolic murmur, no rub, no S3 Gallop, no S4 Gallop, no click, no other - Gastrointestinal General gastrointestinal: normal bowel sounds, soft - Integumentary Integumentary: no rash - Neurologic Neurologic: no gross motor or sensory deficit - Musculoskeletal Musculoskeletal:strength equal bilaterally - Psychiatric Psychiatric: A&O x's 3, appropriate affect Results CBC & Chem 7: 04/11/21 10:20 04/11/21 10:20 Labs: Abnormal Lab Results - Last 24 Hours (Table) 04/11/21 04/11/21 Range/Units 10:20 10:20 RBC 2.60 L (3.80-5.40) m/uL Hgb 8.9 L (11.4-16.0) gm/dL Hct 27.5 L (34.0-46.0) % MCV 106.0 H (80.0-100.0) fL RDW 19.8 H (11.5-15.5) % Lymphocytes # 0.5 L (1.0-4.8) k/uL Macrocytosis Marked A Phosphorus 4.6 H (2.5-4.5) mg/dL Alkaline Phosphatase 185 H (38-126) U/L Total Protein 6.2 L (6.3-8.2) g/dL Assessment and Plan Plan: # 1 relapsed diffuse large B-cell lymphoma status post R -CHOP on 07/17/2019 completed 6 cycles on 10/21/19. on salvage therapy with R-ICE with mesna with cycle 3. We'll order daily labs urinalysis and watch for for nephrotoxicity neurotoxicity and liver toxicity. #2 ALLERGIC rhinitis continue Claritin 10 mg daily #3 vertigo continue meclizine 25 3 times a day #4 GERD on Protonix 40 twice a day #5 DVT prophylaxis with Lovenox 40 subcu daily 6 CODE STATUS full code Thank you for the consult be happy to assist in patient's medical needle patient is in the hospital
[2021-04-11] MEDS: SODIUM CHLORIDE 0.9% 1,000 ML IV SCH ×3 (13:46→23:15)
[2021-04-11] MEDS: ONDANSETRON 16 MG in SODIUM CHLORIDE 0.9% 50 ML IVPB SCH (13:52)
[2021-04-11] MEDS: PANTOPRAZOLE 40 MG TABLET PO SCH (13:52)
[2021-04-11] MEDS: DEXAMETHASONE SOD PHOSPHATE 10 MG/ML 1 ML VIAL IV SCH (13:52)
[2021-04-11] MEDS: FAMOTIDINE 20 MG/2 ML VIAL IV SCH (13:52)
[2021-04-11] MEDS: ETOPOSIDE IV SCH (14:16)
[2021-04-11] MEDS: SODIUM CHLORIDE 0.9% IV SCH (14:16)
[2021-04-11] MEDS ORDERED: LORATADINE 10 MG TAB PO ONE (14:32)
[2021-04-11] MEDS: OLANZapine 5 MG TAB PO SCH (20:15)
[2021-04-11] MEDS: SENNOSIDES-DOCUSATE SODIUM 1 EACH TAB PO SCH (20:16)
[2021-04-11] MEDS: FAMOTIDINE 20 MG TAB PO SCH (20:16)
[2021-04-12 06:23] LABS: Anisocytosis Slight; Basophils % (A) 0 %; Eosinophils % (A) 0 %; HCT 25.1 % (34.0-46.0); HGB 8.3 gm/dL (11.4-16.0); Hypochromasia Moderate; Lymphocytes # (A) 0.3 k/uL (1.0-4.8); Lymphocytes % (A) 5 %; MCH 35.3 pg (25.0-35.0); MCV 106.8 fL (80.0-100.0); Macrocytosis Marked; Mean Platelet Volume 7.3; Monocytes # (A) 0.5 k/uL (0-1.0); Monocytes % (A) 8 %; Neutrophils % (A) 85 %; Platelet Count 181 k/uL (150-450); Poikilocytosis Slight; RBC 2.35 m/uL (3.80-5.40); WBC 5.9 k/uL (3.8-10.6)
[2021-04-12] MEDS: ENOXAPARIN 40 MG/0.4 ML SYRINGE SQ SCH (08:53)
[2021-04-12] MEDS: LACTOBACILLUS ACIDOPH & BULGAR 1 EACH PACKET PO SCH (08:54)
[2021-04-12] MEDS: LORATADINE 10 MG TAB PO SCH (08:54)
[2021-04-12] MEDS: SENNOSIDES-DOCUSATE SODIUM 1 EACH TAB PO SCH ×2 (08:54→20:08)
[2021-04-12] MEDS: FAMOTIDINE 20 MG TAB PO SCH ×2 (08:54→20:08)
[2021-04-12] MEDS: MAGNESIUM OXIDE 400 MG TAB PO SCH (08:54)
[2021-04-12] MEDS: SODIUM CHLORIDE 0.9% 1,000 ML IV SCH ×2 (08:55→20:09)
[2021-04-12] MEDS: CHOLECALCIFEROL 25 MCG (1000 IU) TABLET PO SCH (08:55)
[2021-04-12] MEDS: ZINC SULFATE 220 MG CAP PO SCH (08:55)
[2021-04-12] MEDS: PANTOPRAZOLE 40 MG TABLET PO SCH ×2 (08:55→15:55)
[2021-04-12 10:48] LABS: African American GFR (CKD) 112.1 (60.0-200.0); Albumin 3.8 g/dL (3.80-4.90); Albumin/Globulin Ratio 2.38 (1.60-3.17); Anion Gap 6.3 mmol/L (4.00-12.00); Calcium 8.4 mg/dL (8.7-10.3); Carbon Dioxide 24.7 mmol/L (21.6-31.8); Globulin 1.6 g/dL (1.6-3.3); Non-African American GFR(CKD) 96.7 (60.0-200.0); Phosphorus 4.8 mg/dL (2.4-5.1); Potassium 4.2 mmol/L (3.5-5.5); Total Bilirubin 0.6 mg/dL (0.2-1.2); Total Protein 5.4 g/dL (6.2-8.2); Uric Acid 6.3 mg/dL (2.9-7.7)
[2021-04-12] MEDS: FAMOTIDINE 20 MG/2 ML VIAL IV SCH (11:44)
[2021-04-12] MEDS: ONDANSETRON 16 MG in SODIUM CHLORIDE 0.9% 50 ML IVPB SCH (11:44)
[2021-04-12] MEDS: DEXAMETHASONE SOD PHOSPHATE 10 MG/ML 1 ML VIAL IV SCH (11:44)
[2021-04-12] MEDS ORDERED: SODIUM CHLORIDE 0.9% IV ONE ×3 (12:00)
[2021-04-12] MEDS ORDERED: [UNRECOGNIZED DRUG - OTHER] IV ONE (12:00)
[2021-04-12] MEDS ORDERED: IFOSFAMIDE IV ONE (12:00)
[2021-04-12] MEDS ORDERED: MESNA IV ONE (12:00)
[2021-04-12] MEDS ORDERED: CARBOPLATIN IV ONE (12:00)
--- NOTE | 2021-04-12 14:42 | P.PN ---
Subjective Progress Note Date: 04/12/21 HISTORY OF PRESENT ILLNESS 70-year-old female patient of Dr. Jaime and Dr. Beyer who was initially diagnosed with diffuse large B-cell lymphoma for which patient under went R-CHOP on 07/17/2019 and completed on 10/21/19 noticed enlarging lymph nodes involving the right side of her neck in December 2020 and immediately underwent PET scan showing uptake in the right cervical and supraclavicular node and left inguinal node arm. She was referred for repeat biopsy on 02/06/21 that revealed diffuse large B-cell lymphoma edema. She is admitted for initiation of salvage chemotherapy with R-eyes regimen. Patient was evaluated at bedside in his appears to have improved. He denies any weight loss. Denies any bruising or blood loss from any source. Patient's labs were evaluated suggested WBC of 8.2 hemoglobin 8.9 MCV 106 platelet 216 macrocytosis a large. Sodium is 140 potassium 4.8 chloride 106 bicarb 25 BUN 15 creatinine 0.58 uric acid of 4.7 slightly enlarged alkaline phosphatase at 185. Vitals are stable afebrile pulse 71 respiratory rate 14 blood pressure 118/77 7/15: Patient is seen today on the oncology unit. She denies having any lightheadedness or dizziness. Blood pressure is on the low side last evening with reading of 94/59 and patient was started on IV fluids 125 mL per hour. She has been afebrile, heart rate 74, blood pressure 99/62 and pulse ox 90% on room air. Repeat blood work reveals WBC 5.9, hemoglobin 8.3, platelet count 181. So dium 142, potassium 4.2, chloride 111, CO2 24, BUN 12 and creatinine 0.5. Calcium 8.4. Alkaline phosphatase 160. She is consuming between 50 and 100% of her meals. Patient has been started on inpatient chemotherapy. Patient received carboplatin IV 1 seen yesterday and is currently on Decadron, Toposar 3 doses, Ifex 1 today, Mesna 1 today. REVIEW OF SYSTEMS Constitutional: Denies chills, Denies fever, Denies lethargy, Denies malaise, Denies poor appetite, Denies weakness, Denies weight loss positive for fatigue Eyes: denies decreased vision, denies diplopia, denies discharge, denies pain Ears: deny: decreased hearing Ears, nose, mouth and throat: Denies dental pain, Denies headache, Denies nasal discharge, Denies nose pain Cardiovascular: Denies chest pain, Denies decreased exercise tolerance, Denies edema, Denies high blood pressure, Denies irregular heart beat, Denies palpitations, Denies paroxysmal nocturnal dyspnea, Denies rapid heart beat, Denies shortness of breath Respiratory: Denies congestion, Denies cough, Denies cough with sputum, Denies dyspnea, Denies home oxygen, Denies wheezing Gastrointestinal: Denies abdominal pain, Denies change in bowel habits, Denies coffee ground emesis, Denies early satiety, Denies excessive gas, Denies hea rtburn, Denies hematemesis, Denies hematochezia, Denies loss of appetite, Denies nausea, Denies vomiting Genitourinary: Denies dysuria, Denies flank pain, Denies kidney stones, Denies menorrhagia, Denies urgency, Denies urinary frequency Musculoskeletal: Denies gait dysfunction, Denies limitation of motion, Denies morning stiffness, Denies muscle cramps Integumentary: Denies rash, Denies wounds, Denies brittle nails, Denies change in hair/nails, Denies darkening of skin Neurological: Denies balance difficulties, Denies change in speech, Denies double vision, Denies gait dysfunction, Denies loss of vision, Denies motor disturbance, Denies numbness, Denies paralysis, Denies paresthesias, Denies seizures Psychiatric: Denies anxiety, Denies depression Endocrine: Denies excessive sweating, Denies excessive thirst, Denies high blood sugars, Denies palpitations Hematologic/Lymphatic: Denies easy bruising, Denies lymphadenopathy PHYSICAL EXAMINATION Gen: This is a 70-year-old female. She is resting in bed and appears to be comfortable. HEENT: Head is atraumatic, normocephalic. Pupils equal, round. Sclerae is anicteric. NECK: Supple. No JVD. No lymphadenopathy. No thyromegaly. LUNGS: Clear to auscultation. No wheezes or rhonchi. No intercostal retra ctions. HEART: Regular rate and rhythm. No murmur. ABDOMEN: Soft. Bowel sounds are present. No masses. No tenderness. EXTREMITIES: No pedal edema. No calf tenderness. NEUROLOGICAL: Patient is awake, alert and oriented x3. Cranial nerves 2 through 12 are grossly intact. ASSESSMENT AND PLAN # 1 relapsed diffuse large B-cell lymphoma status post R -CHOP on 07/17/2019 com pleted 6 cycles on 10/21/19. on salvage therapy with R-ICE with mesna with cycle 3. Monitor for nephrotoxicity neurotoxicity and liver toxicity. #2 ALLERGIC rhinitis continue Claritin 10 mg daily #3 vertigo continue meclizine 25 3 times a day #4 GERD on Protonix 40 twice a day #5 DVT prophylaxis with Lovenox 40 subcu daily 6 CODE STATUS full code DISCHARGE PLAN Home Impression and plan of care have been directed as dictated by the signing physician. Renetta Schneider nurse practitioner acting as scribe for signing physician. Objective - Vital Signs Vital signs: Vital Signs Temp 98.1 F 04/12/21 08:00 Pulse 74 04/12/21 08:00 Resp 16 04/12/21 08:00 BP 99/62 04/12/21 08:00 Pulse Ox 98 04/12/21 08:00 Intake & Output 04/11/21 04/12/21 04/12/21 18:59 06:59 18:59 Intake Total 1880 Balance 1880 Weight 67.631 kg Intake: Intake, IV Titration 1400 Amount Sodium Chloride 0.9% 1, 1400 000 ml @ 125 mls/hr IV . Q8H [facility] Rx#:[id number] Oral 480 Other: Voiding Method Toilet # Voids 2 2 - Labs CBC & Chem 7: 04/12/21 05:43 04/12/21 05:43 Labs: Abnormal Lab Results - Last 24 Hours (Table) 04/11/21 04/11/21 04/12/21 Range/Units 10:20 10:20 05:43 RBC 2.60 L 2.35 L (3.80-5.40) m/uL Hgb 8.9 L 8.3 L (11.4-16.0) gm/dL Hct 27.5 L 25.1 L (34.0-46.0) % MCV 106.0 H 106.8 H (80.0-100.0) fL MCH 35.3 H (25.0-35.0) pg RDW 19.8 H 19.0 H (11.5-15.5) % Lymphocytes # 0.5 L 0.3 L (1.0-4.8) k/uL Macrocytosis Marked A Marked A Phosphorus 4.6 H (2.5-4.5) mg/dL Alkaline Phosphatase 185 H (38-126) U/L Total Protein 6.2 L (6.3-8.2) g/dL
[2021-04-12] MEDS: SODIUM CHLORIDE 0.9% IV SCH (14:43)
[2021-04-12] MEDS: ETOPOSIDE IV SCH (14:43)
--- NOTE | 2021-04-12 15:24 | P.PN ---
Subjective Progress Note Date: 04/12/21 Principal diagnosis: nhl timed chemo Day 2 tolerating well Objective - Vital Signs Vital signs: Vital Signs Temp 97.8 F 04/12/21 11:41 Pulse 72 04/12/21 11:41 Resp 16 04/12/21 11:41 BP 104/66 04/12/21 11:41 Pulse Ox 99 04/12/21 11:41 Intake & Output 04/11/21 04/12/21 04/12/21 18:59 06:59 18:59 Intake Total 1880 Balance 1880 Weight 67.631 kg Intake: Intake, IV Titration 1400 Amount Sodium Chloride 0.9% 1, 1400 000 ml @ 125 mls/hr IV . Q8H [facility] Rx#:[id number] Oral 480 Other: Voiding Method Toilet # Voids 2 2 - Exam - Constitutional General appearance: cooperative, no acute distress - EENT Eyes: EOMI, PERRLA ENT: NA/AT, normal oropharynx - Neck Neck: normal ROM - Respiratory Respiratory: bilateral: CTA - Cardiovascular Rhythm: regular - Gastrointestinal General gastrointestinal: soft - Integumentary Integumentary: pale - Neurologic Neurologic: CNII-XII intact - Musculoskeletal Musculoskeletal: generalized weakness, strength equal bilaterally - Psychiatric Psychiatric: A&O x's 3, appropriate affect, intact judgment & insight - Labs CBC & Chem 7: 04/12/21 05:43 04/12/21 05:43 Labs: Abnormal Lab Results - Last 24 Hours (Table) 04/12/21 04/12/21 Range/Units 05:43 05:43 RBC 2.35 L (3.80-5.40) m/uL Hgb 8.3 L (11.4-16.0) gm/dL Hct 25.1 L (34.0-46.0) % MCV 106.8 H (80.0-100.0) fL MCH 35.3 H (25.0-35.0) pg RDW 19.0 H (11.5-15.5) % Lymphocytes # 0.3 L (1.0-4.8) k/uL Macrocytosis Marked A Chloride 111 H (96-109) mmol/L Creatinine 0.5 L (0.6-1.5) mg/dL BUN/Creatinine Ratio 24.00 H (12.00-20.00) Ratio Calcium 8.4 L (8.7-10.3) mg/dL Alkaline Phosphatase 160 H (41-126) U/L Total Protein 5.4 L (6.2-8.2) g/dL Assessment and Plan (1) Non-Hodgkin lymphoma Current Visit: No Status: Acute Code(s): C85.90 - NON-HODGKIN LYMPHOMA, UNSPECIFIED, UNSPECIFIED SITE SNOMED Code(s): 966424448 (2) Pancytopenia due to antineoplastic chemotherapy Current Visit: No Status: Acute Code(s): D61.810 - ANTINEOPLASTIC CHEMOTHERAPY INDUCED PANCYTOPENIA; T45.1X5A - ADVERSE EFFECT OF ANTINEOPLASTIC AND IMMUNOSUP DRUGS, INIT SNOMED Code(s): 311852502439835 Plan: Timed Chemotherapy with R-ICE Neulasta in office following chemotherapy Home medications ordered Medical Management team consulted Daily Labs Daily walks Continue Day two of chemotherapy CHeck Urine for RBCs Neulasta in Office Friday Physician Attest: I have completed the full history and physical and agree with above dictation, dictated as a scribe
[2021-04-12] MEDS: SALT AND SODA MOUTHWASH 1,000 ML PO SCH ×3 (15:54→23:40)
[2021-04-12 16:52] LABS: Appearance,Urine Clear (Clear); Bilirubin,Urine Negative (Negative); Blood,Urine Negative (Negative); Color,Urine Colorless; Glucose,Urine (UA) Negative (Negative); Ketones,Urine 2+ (Negative); Leukocyte Esterase,Urine Negative (Negative); Nitrite,Urine Negative (Negative); Protein,Urine Negative (Negative); Specific Gravity,Urine 1.005 (1.001-1.035); Urobilinogen,Urine <2.0 mg/dL (<2.0)
[2021-04-12] MEDS: OLANZapine 5 MG TAB PO SCH (20:08)
[2021-04-13] MEDS: SODIUM CHLORIDE 0.9% 1,000 ML IV SCH ×2 (03:44→11:33)
[2021-04-13 05:04] LABS: Anisocytosis Slight; HCT 22.6 % (34.0-46.0); HGB 7.4 gm/dL (11.4-16.0); Hypochromasia Marked; MCH 35.3 pg (25.0-35.0); MCHC 32.7 g/dL (31.0-37.0); Macrocytosis Marked; Mean Platelet Volume 7.5; Platelet Count 150 k/uL (150-450); RBC 2.09 m/uL (3.80-5.40); RDW 18.8 % (11.5-15.5); WBC 2.6 k/uL (3.8-10.6)
[2021-04-13] MEDS: SALT AND SODA MOUTHWASH 1,000 ML PO SCH ×2 (05:33→11:31)
[2021-04-13] MEDS: MAGNESIUM OXIDE 400 MG TAB PO SCH (08:43)
[2021-04-13] MEDS: ENOXAPARIN 40 MG/0.4 ML SYRINGE SQ SCH (08:43)
[2021-04-13] MEDS: CHOLECALCIFEROL 25 MCG (1000 IU) TABLET PO SCH (08:43)
[2021-04-13] MEDS: LACTOBACILLUS ACIDOPH & BULGAR 1 EACH PACKET PO SCH (08:43)
[2021-04-13] MEDS: FAMOTIDINE 20 MG TAB PO SCH (08:43)
[2021-04-13] MEDS: LORATADINE 10 MG TAB PO SCH (08:43)
[2021-04-13] MEDS: ZINC SULFATE 220 MG CAP PO SCH (08:43)
[2021-04-13] MEDS: PANTOPRAZOLE 40 MG TABLET PO SCH (08:43)
[2021-04-13] MEDS: SENNOSIDES-DOCUSATE SODIUM 1 EACH TAB PO SCH (08:44)
[2021-04-13 08:46] VITALS: PULSE 68; TEMP 98.5
[2021-04-13 09:53] LABS: African American GFR (CKD) 112.1 (60.0-200.0); Albumin 3.4 g/dL (3.80-4.90); Albumin/Globulin Ratio 2.27 (1.60-3.17); Anion Gap 7.6 mmol/L (4.00-12.00); Carbon Dioxide 20.4 mmol/L (21.6-31.8); Globulin 1.5 g/dL (1.6-3.3); Non-African American GFR(CKD) 96.7 (60.0-200.0); Potassium 3.6 mmol/L (3.5-5.5); Total Bilirubin 0.4 mg/dL (0.2-1.2); Total Protein 4.9 g/dL (6.2-8.2)
--- NOTE | 2021-04-13 10:42 | P.PN ---
Subjective Progress Note Date: 04/13/21 Principal diagnosis: nhl timed chemo Day 3 of chemo tolerating well. PLan is to follow-up in office friday next week for jimena Objective - Vital Signs Vital signs: Vital Signs Temp 98.5 F 04/13/21 08:00 Pulse 68 04/13/21 08:00 Resp 16 04/13/21 08:00 BP 116/71 04/13/21 08:00 Pulse Ox 100 04/13/21 08:00 Intake & Output 04/12/21 04/13/21 04/13/21 18:59 06:59 18:59 Intake Total 2300 2619 Balance 2300 2619 Intake: Intake, IV Titration 2299 2018 Amount CARBOplatin 380 mg In 250 Sodium Chloride 0.9% 250 ml @ 576 mls/hr IV ONCE ONE Rx#:[id number] Etoposide 160 mg In 500 Sodium Chloride 0.9% 500 ml 500 ml @ 508 mls/hr IV Q24H [facility] Rx#:[id number] Ifosfamide 6,000 mg 325 Ifosfamide 1,800 mg In Sodium Chloride 0.9% 500 ml 500 ml In Empty Bag 1 bag @ 27.333 mls/hr IV ONCE ONE Rx#:[id number] Mesna 7,800 mg In Sodium 194 Chloride 0.9% 500 ml 312 ml @ 16.25 mls/hr IV ONCE ONE Rx#:[id number] Ondansetron 16 mg In 50 Sodium Chloride 0.9% 50 ml @ 232 mls/hr IVPB Q24H [facility] Rx#:[id number] Sodium Chloride 0.9% 1, 1500 1500 000 ml @ 125 mls/hr IV . Q8H [facility] Rx#:[id number] Oral 600 Other: Voiding Method Toilet # Voids 3 - Exam - Constitutional General appearance: cooperative, no acute distress - EENT Eyes: EOMI, PERRLA ENT: NA/AT, normal oropharynx - Neck Neck: normal ROM - Respiratory Respiratory: bilateral: CTA - Cardiovascular Rhythm: regular - Gastrointestinal General gastrointestinal: soft - Integumentary Integumentary: pale - Neurologic Neurologic: CNII-XII intact - Musculoskeletal Musculoskeletal: generalized weakness, strength equal bilaterally - Psychiatric Psychiatric: A&O x's 3, appropriate affect, intact judgment & insight - Labs CBC & Chem 7: 04/13/21 04:37 04/13/21 04:37 Labs: Abnormal Lab Results - Last 24 Hours (Table) 04/12/21 04/12/21 04/13/21 Range/Units 05:43 16:35 04:37 WBC 2.6 L (3.8-10.6) k/uL RBC 2.09 L (3.80-5.40) m/uL Hgb 7.4 L (11.4-16.0) gm/dL Hct 22.6 L (34.0-46.0) % MCV 108.0 H (80.0-100.0) fL MCH 35.3 H (25.0-35.0) pg RDW 18.8 H (11.5-15.5) % Macrocytosis Marked A Chloride 111 H (96-109) mmol/L Carbon Dioxide (21.6-31.8) mmol/L Creatinine 0.5 L (0.6-1.5) mg/dL BUN/Creatinine Ratio 24.00 H (12.00-20.00) Ratio Calcium 8.4 L (8.7-10.3) mg/dL AST (13-35) U/L ALT (8-44) U/L Alkaline Phosphatase 160 H (41-126) U/L Total Protein 5.4 L (6.2-8.2) g/dL Albumin (3.80-4.90) g/dL Globulin (1.6-3.3) g/dL Urine Ketones 2+ H (Negative) 04/13/21 Range/Units 04:37 WBC (3.8-10.6) k/uL RBC (3.80-5.40) m/uL Hgb (11.4-16.0) gm/dL Hct (34.0-46.0) % MCV (80.0-100.0) fL MCH (25.0-35.0) pg RDW (11.5-15.5) % Macrocytosis Chloride 115 H (96-109) mmol/L Carbon Dioxide 20.4 L (21.6-31.8) mmol/L Creatinine 0.5 L (0.6-1.5) mg/dL BUN/Creatinine Ratio 26.00 H (12.00-20.00) Ratio Calcium 8.0 L (8.7-10.3) mg/dL AST 40 H (13-35) U/L ALT 48 H (8-44) U/L Alkaline Phosphatase 149 H (41-126) U/L Total Protein 4.9 L (6.2-8.2) g/dL Albumin 3.40 L (3.80-4.90) g/dL Globulin 1.5 L (1.6-3.3) g/dL Urine Ketones (Negative) Assessment and Plan (1) Non-Hodgkin lymphoma Status: Acute Code(s): C85.90 - NON-HODGKIN LYMPHOMA, UNSPECIFIED, UNSPECIFIED SITE SNOMED Code(s): 941648022 (2) Pancytopenia due to antineoplastic chemotherapy Status: Acute Code(s): D61.810 - ANTINEOPLASTIC CHEMOTHERAPY INDUCED PANCYTOPENIA; T45.1X5A - ADVERSE EFFECT OF ANTINEOPLASTIC AND IMMUNOSUP DRUGS, INIT SNOMED Code(s): 619869001631553 Plan: Timed Chemotherapy with R-ICE Neulasta in office following chemotherapy Home medications ordered Medical Management team consulted Daily Labs Daily walks Continue Day two of chemotherapy CHeck Urine for RBCs Neulasta in Office Friday prophylaxic abx sent Physician attest: I have completed the full history and physical and agree with above dictation, dictated as a ascribe.
[2021-04-13 11:48] VITALS: BP 102/64; RESP 18
[2021-04-13] MEDS: DEXAMETHASONE SOD PHOSPHATE 10 MG/ML 1 ML VIAL IV SCH (13:35)
[2021-04-13] MEDS: FAMOTIDINE 20 MG/2 ML VIAL IV SCH (13:35)
[2021-04-13] MEDS: ONDANSETRON 16 MG in SODIUM CHLORIDE 0.9% 50 ML IVPB SCH (13:35)
[2021-04-13] MEDS: ETOPOSIDE IV SCH (13:36)
[2021-04-13] MEDS: SODIUM CHLORIDE 0.9% IV SCH (13:36)
--- NOTE | 2021-04-13 20:47 | P.DS ---
Providers Date of admission: 04/11/21 08:54 Attending physician: Eliseo Alcala Consults: 04/11/21 11:30 Consult Physician Routine Consulting Provider: Isaura Bob Consult Reason/Comments: medical Management Do you want consulting provider notified?: Yes Primary care physician: Mike Jaime - Discharge Diagnosis(es) (1) Non-Hodgkin lymphoma Status: Acute (2) Pancytopenia due to antineoplastic chemotherapy Status: Acute Hospital Course: See progress note Plan - Discharge Summary Discharge Rx Participant: No New Discharge Prescriptions: New Ciprofloxacin HCl [Cipro] 500 mg PO Q12H 10 Days #2 tab Sennosides-Docusate Sodium [Senokot-S] 2 each PO BID tab OLANZapine [ZyPREXA] 5 mg PO HS tab Acyclovir 400 mg PO BID 30 Days tablet Nystatin 100,000 Unit/ml Susp [Mycostatin Oral Susp] 6 ml PO QID #360 ml Continue Meclizine [Antivert] 25 mg PO TID PRN PRN Reason: Vertigo Loratadine 10 mg PO DAILY L.acidoph,Paracasei, B.lactis [Probiotic] 1 cap PO DAILY Famotidine [Pepcid] 20 mg PO BID Zinc 50 mg PO DAILY Pantoprazole [Protonix] 40 mg PO AC-BID tablet. Cholecalciferol (Vitamin D3) [Vitamin D3 (5000 Iu)] 125 mcg PO DAILY Magnesium Oxide [Magox 400] 400 mg PO DAILY Acetaminophen Tab [Tylenol] 325 mg PO Q4H PRN PRN Reason: Pain Or Fever > 100.5 Ondansetron HCl [Zofran] 4 mg PO Q6HR PRN #30 tab PRN Reason: Nausea And Vomiting Discharge Medication List L.acidoph,Paracasei, B.lactis [Probiotic] 1 cap PO DAILY 07/06/19 [History] Loratadine 10 mg PO DAILY 07/06/19 [History] Meclizine [Antivert] 25 mg PO TID PRN 07/06/19 [History] Famotidine [Pepcid] 20 mg PO BID 07/28/19 [History] Acetaminophen Tab [Tylenol] 325 mg PO Q4H PRN 02/23/21 [History] Cholecalciferol (Vitamin D3) [Vitamin D3 (5000 Iu)] 125 mcg PO DAILY 02/23/21 [History] Magnesium Oxide [Magox 400] 400 mg PO DAILY 02/23/21 [History] Zinc 50 mg PO DAILY 02/23/21 [History] Ondansetron HCl [Zofran] 4 mg PO Q6HR PRN #30 tab 02/26/21 [Rx] Pantoprazole [Protonix] 40 mg PO AC-BID tablet. 03/18/21 [Rx] Acyclovir 400 mg PO BID 30 Days tablet 04/13/21 [Rx] Ciprofloxacin HCl [Cipro] 500 mg PO Q12H 10 Days #2 tab 04/13/21 [Rx] Nystatin 100,000 Unit/ml Susp [Mycostatin Oral Susp] 6 ml PO QID #360 ml 04/13/21 [Rx] OLANZapine [ZyPREXA] 5 mg PO HS tab 04/13/21 [Rx] Sennosides-Docusate Sodium [Senokot-S] 2 each PO BID tab 04/13/21 [Rx] Follow up Appointment(s)/Referral(s): Eliseo Alcala MD [STAFF PHYSICIAN] - 04/16/21 (Nurses jimena) Patient Instructions/Handouts: Ciprofloxacin (By mouth), Acyclovir (By mouth), Nystatin (By mouth) Discharge Disposition: HOME SELF-CARE
--- NOTE | 2021-04-14 13:43 | P.PN ---
Subjective Progress Note Date: 04/13/21 HISTORY OF PRESENT ILLNESS 70-year-old female patient of Dr. Jaime and Dr. Beyer who was initially diagnosed with diffuse large B-cell lymphoma for which patient under went R-CHOP on 07/17/2019 and completed on 10/21/19 noticed enlarging lymph nodes involving the right side of her neck in December 2020 and immediately underwent PET scan showing uptake in the right cervical and supraclavicular node and left inguinal node arm. She was referred for repeat biopsy on 02/06/21 that revealed diffuse large B-cell lymphoma edema. She is admitted for initiation of salvage chemotherapy with R-eyes regimen. Patient was evaluated at bedside in his appears to have improved. He denies any weight loss. Denies any bruising or blood loss from any source. Patient's labs were evaluated suggested WBC of 8.2 hemoglobin 8.9 MCV 106 platelet 216 macrocytosis a large. Sodium is 140 potassium 4.8 chloride 106 bicarb 25 BUN 15 creatinine 0.58 uric acid of 4.7 slightly enlarged alkaline phosphatase at 185. Vitals are stable afebrile pulse 71 respiratory rate 14 blood pressure 118/77 04/12: Patient is seen today on the oncology unit. She denies having any lightheadedness or dizziness. Blood pressure is on the low side last evening with reading of 94/59 and patient was started on IV fluids 125 mL per hour. She has been afebrile, heart rate 74, blood pressure 99/62 and pulse ox 90% on room air. Repeat blood work reveals WBC 5.9, hemoglobin 8.3, platelet count 181. So dium 142, potassium 4.2, chloride 111, CO2 24, BUN 12 and creatinine 0.5. Calcium 8.4. Alkaline phosphatase 160. She is consuming between 50 and 100% of her meals. Patient has been started on inpatient chemotherapy. Patient received carboplatin IV 1 seen yesterday and is currently on Decadron, Toposar 3 doses, Ifex 1 today, Mesna 1 today. 04/13: Patient denies any new complaints. No chest pain or shortness of breath, no abdominal pain. She has been afebrile, heart rate 60, blood pressure 102/64, pulse ox 90% on room air. Repeat blood work reveals WBC 2.6, hemoglobin 7.4, platelet count 150. Sodium 143, potassium 3.6, chloride 115, CO2 20.4, BUN 13, creatinine 0.5. Total bilirubin 0.4, AST 40, ALT 48, alkaline phosphatase 149. Patient is cleared for medicine for discharge. REVIEW OF SYSTEMS Constitutional: Denies chills, Denies fever, Denies lethargy, Denies malaise, Denies poor appetite, Denies weakness, Denies weight loss positive for fatigue Eyes: denies decreased vision, denies diplopia, denies discharge, denies pain Ears: deny: decreased hearing Ears, nose, mouth and throat: Denies dental pain, Denies headache, Denies nasal discharge, Denies nose pain Cardiovascular: Denies chest pain, Denies decreased exercise tolerance, Denies edema, Denies high blood pressure, Denies irregular heart beat, Denies palpitations, Denies paroxysmal nocturnal dyspnea, Denies rapid heart beat, Denies shortness of breath Respiratory: Denies congestion, Denies cough, Denies cough with sputum, Denies dyspnea, Denies home oxygen, Denies wheezing Gastrointestinal: Denies abdominal pain, Denies change in bowel habits, Denies coffee ground emesis, Denies early satiety, Denies excessive gas, Denies heartburn, Denies hematemesis, Denies hematochezia, Denies loss of appetite, Denies nausea, Denies vomiting Genitourinary: Denies dysuria, Denies flank pain, Denies kidney stones, Denies menorrhagia, Denies urgency, Denies urinary frequency Musculoskeletal: Denies gait dysfunction, Denies limitation of motion, Denies morning stiffness, Denies muscle cramps Integumentary: Denies rash, Denies wounds, Denies brittle nails, Denies change in hair/nails, Denies darkening of skin Neurological: Denies balance difficulties, Denies change in speech, Denies do uble vision, Denies gait dysfunction, Denies loss of vision, Denies motor disturbance, Denies numbness, Denies paralysis, Denies paresthesias, Denies seizures Psychiatric: Denies anxiety, Denies depression Endocrine: Denies excessive sweating, Denies excessive thirst, Denies high blood sugars, Denies palpitations Hematologic/Lymphatic: Denies easy bruising, Denies lymphadenopathy PHYSICAL EXAMINATION Gen: This is a 70-year-old female. She is resting in bed and appears to be comfortable. HEENT: Head is atraumatic, normocephalic. Pupils equal, round. Sclerae is anicteric. NECK: Supple. No JVD. No lymphadenopathy. No thyromegaly. LUNGS: Clear to auscultation. No wheezes or rhonchi. No intercostal retractions. HEART: Regular rate and rhythm. No murmur. ABDOMEN: Soft. Bowel sounds are present. No masses. No tenderness. EXTREMITIES: No pedal edema. No calf tenderness. NEUROLOGICAL: Patient is awake, alert and oriented x3. Cranial nerves 2 through 12 are grossly intact. ASSESSMENT AND PLAN # 1 relapsed diffuse large B-cell lymphoma status post R -CHOP on 07/17/2019 completed 6 cycles on 10/21/19. on salvage therapy with R-ICE with mesna with cycle 3. Monitor for nephrotoxicity neurotoxicity and liver toxicity. #2 ALLERGIC rhinitis continue Claritin 10 mg daily #3 vertigo continue meclizine 25 3 times a day #4 GERD on Protonix 40 twice a day #5 DVT prophylaxis with Lovenox 40 subcu daily 6 CODE STATUS full code DISCHARGE PLAN Hometoday Impression and plan of care have been directed as dictated by the signing physician. Renetta Schneider nurse practitioner acting as scribe for signing physician. Objective - Vital Signs Vital signs: Vital Signs Temp 98.5 F 04/13/21 08:00 Pulse 68 04/13/21 08:00 Resp 16 04/13/21 08:00 BP 116/71 04/13/21 08:00 Pulse Ox 100 04/13/21 08:00 Intake & Output 04/12/21 04/13/21 04/13/21 18:59 06:59 18:59 Intake Total 2300 2619 Balance 2300 2619 Intake: Intake, IV Titration 2299 2018 Amount CARBOplatin 380 mg In 250 Sodium Chloride 0.9% 250 ml @ 576 mls/hr IV ONCE ONE Rx#:[id number] Etoposide 160 mg In 500 Sodium Chloride 0.9% 500 ml 500 ml @ 508 mls/hr IV Q24H [facility] Rx#:[id number] Ifosfamide 6,000 mg 325 Ifosfamide 1,800 mg In Sodium Chloride 0.9% 500 ml 500 ml In Empty Bag 1 bag @ 27.333 mls/hr IV ONCE ONE Rx#:[id number] Mesna 7,800 mg In Sodium 194 Chloride 0.9% 500 ml 312 ml @ 16.25 mls/hr IV ONCE ONE Rx#:[id number] Ondansetron 16 mg In 50 Sodium Chloride 0.9% 50 ml @ 232 mls/hr IVPB Q24H [facility] Rx#:[id number] Sodium Chloride 0.9% 1, 1500 1500 000 ml @ 125 mls/hr IV . Q8H [facility] Rx#:[id number] Oral 600 Other: Voiding Method Toilet # Voids 3 - Labs CBC & Chem 7: 04/13/21 04:37 04/13/21 04:37 Labs: Abnormal Lab Results - Last 24 Hours (Table) 04/12/21 04/12/21 04/13/21 Range/Units 05:43 16:35 04:37 WBC 2.6 L (3.8-10.6) k/uL RBC 2.09 L (3.80-5.40) m/uL Hgb 7.4 L (11.4-16.0) gm/dL Hct 22.6 L (34.0-46.0) % MCV 108.0 H (80.0-100.0) fL MCH 35.3 H (25.0-35.0) pg RDW 18.8 H (11.5-15.5) % Macrocytosis Marked A Chloride 111 H (96-109) mmol/L Creatinine 0.5 L (0.6-1.5) mg/dL BUN/Creatinine Ratio 24.00 H (12.00-20.00) Ratio Calcium 8.4 L (8.7-10.3) mg/dL Alkaline Phosphatase 160 H (41-126) U/L Total Protein 5.4 L (6.2-8.2) g/dL Urine Ketones 2+ H (Negative)
== END 2021-04-13 16:09 | disposition home or self-care (01) | DRG 846 ==
LOC: 5NMEDONC 08:54
PROVIDERS: ADMIT Internal Medicine Hematology & Oncology; ATTEND Internal Medicine Hematology & Oncology
DX: Z51.11 Encounter for antineoplastic chemotherapy (principal); D61.810 Antineoplastic chemotherapy induced pancytopenia; C83.30 Diffuse large B-cell lymphoma, unspecified site; T45.1X5A Adverse effect of antineoplastic and immunosuppressive drugs, initial encounter; H91.91 Unspecified hearing loss, right ear; S43.004A Unspecified dislocation of right shoulder joint, initial encounter; J30.9 Allergic rhinitis, unspecified; K21.9 Gastro-esophageal reflux disease without esophagitis; W01.0XXA Fall on same level from slipping, tripping and stumbling without subsequent striking against object, initial encounter; Z87.891 Personal history of nicotine dependence; Z90.710 Acquired absence of both cervix and uterus; Z98.41 Cataract extraction status, right eye
CPT/HCPCS: 80053; 81003; 84100; 84550; 85025; 85027

== ENCOUNTER 2021-04-23 11:46 | Observation (INO) | payer MEDICARE ==
--- NOTE | 2021-04-23 12:16 | ED ---
General Adult HPI - General Chief complaint: Recheck/Abnormal Lab/Rx Stated complaint: Sent by /Low Hemoglobin Time Seen by Provider: 04/23/21 11:52 Source: patient, family, RN notes reviewed Mode of arrival: wheelchair Limitations: no limitations - History of Present Illness Initial comments: Patient is a pleasant 70-year-old female presenting to the emergency Department with reported anemia. Patient denies any bleeding or tarry stools. Patient does have non-Hodgkin's lymphoma currently under treatment. Patient did have blood work done today and told her hemoglobin was low and to come to the emergency department for blood transfusion. Patient does admit to having some fatigue and dizziness over the past few days. No dyspnea. No isolated area of weakness. - Related Data Home Medications Medication Instructions Recorded Confirmed L.acidoph,Paracasei, B.lactis 1 cap PO DAILY 07/06/19 04/23/21 [Probiotic] Loratadine 10 mg PO DAILY 07/06/19 04/23/21 Meclizine [Antivert] 25 mg PO TID PRN 07/06/19 04/23/21 Famotidine [Pepcid] 20 mg PO BID 07/28/19 04/23/21 Acetaminophen Tab [Tylenol] 325 mg PO Q4H PRN 02/23/21 04/23/21 Cholecalciferol (Vitamin D3) 125 mcg PO DAILY 02/23/21 04/23/21 [Vitamin D3 (5000 Iu)] Magnesium Oxide [Magox 400] 400 mg PO DAILY 02/23/21 04/23/21 Zinc 50 mg PO DAILY 02/23/21 04/23/21 Previous Rx's Medication Instructions Recorded Ondansetron HCl [Zofran] 4 mg PO Q6HR PRN #30 tab 02/26/21 Pantoprazole [Protonix] 40 mg PO AC-BID tablet. 03/18/21 Acyclovir 400 mg PO BID 30 Days tablet 04/13/21 Ciprofloxacin HCl [Cipro] 500 mg PO Q12H 10 Days #2 tab 04/13/21 Nystatin 100,000 Unit/ml Susp 6 ml PO QID #360 ml 04/13/21 [Mycostatin Oral Susp] OLANZapine [ZyPREXA] 5 mg PO HS tab 04/13/21 Allergies Allergy/AdvReac Type Severity Reaction Status Date / Time No Known Allergies Allergy Verified 04/23/21 12:21 Review of Systems ROS Statement: Those systems with pertinent positive or pertinent negative responses have been documented in the HPI. ROS Other: All systems not noted in ROS Statement are negative. Constitutional: Denies: fever Eyes: Denies: eye pain ENT: Denies: ear pain Respiratory: Denies: cough, dyspnea Cardiovascular: Denies: chest pain Endocrine: Reports: fatigue Gastrointestinal: Denies: abdominal pain Genitourinary: Denies: dysuria Musculoskeletal: Denies: back pain Skin: Denies: rash Neurological: Denies: weakness Past Medical History Past Medical History: Cancer, Eye Disorder, GERD/Reflux, Hearing Disorder / Deafness Additional Past Medical History / Comment(s): 04/2019 follicular lymphoma tx with chemo/immunotherapy, 01/2021 diagnosed with diffuse large B cell lymphoma-here for 3rd round chemo. Other hx: vertigo, sinus problems, cataract L eye, deaf R ear. History of Any Multi-Drug Resistant Organisms: None Reported Past Surgical History: Appendectomy, Hysterectomy, Tonsillectomy Additional Past Surgical History / Comment(s): excisional biopsy above R clavicle/R thigh mass, 02/06/21 R mandible biopsty, R cataract removal/lens implant, bilateral eye surgery for retinal tear. Past Anesthesia/Blood Transfusion Reactions: No Reported Reaction Additional Past Anesthesia/Blood Transfusion Reaction / Comment(s): Pt has received blood in past without reaction. Past Psychological History: No Psychological Hx Reported Smoking Status: Former smoker - Past Family History Father Family Medical History: Coronary Artery Disease (CAD), CVA/TIA Additional Family Medical History / Comment(s): Disease at age of 70 Mother Family Medical History: No Reported History, Coronary Artery Disease (CAD) Brother(s) Family Medical History: No Reported History Sister(s) Family Medical History: No Reported History General Exam Limitations: no limitations General appearance: alert, in no apparent distress Head exam: Present: normocephalic Eye exam: Present: normal appearance, PERRL Neck exam: Present: normal inspection Respiratory exam: Present: normal lung sounds bilaterally Cardiovascular Exam: Present: regular rate, normal rhythm GI/Abdominal exam: Present: soft. Absent: tenderness Extremities exam: Present: normal inspection Neurological exam: Present: alert Psychiatric exam: Present: normal affect, normal mood Skin exam: Present: normal color Course Vital Signs 04/23/21 11:47 Temperature 98.3 F Pulse Rate 91 Respiratory 18 Rate Blood Pressure 120/80 O2 Sat by Pulse 100 Oximetry EKG Findings - EKG Comments: EKG Findings:: Normal sinus rhythm with rate of 90. [place] 128. QRS 92. QT 396. QTc 44. Left axis. Normal QRS. No acute ST change. Medical Decision Making - Medical Decision Making Case was discussed with practitioner Marija Lema, covering with Dr. Oliver who would like patient to have 2 units of irradiated blood and recheck in the morning. Case was also discussed with Dr. Bob who is agreeable with admission. Patient reevaluated and updated - Lab Data Result diagrams: 04/23/21 12:18 04/23/21 12:18 Lab Results 04/23/21 04/23/21 04/23/21 Range/Units 12:18 12:18 12:18 WBC 4.8 (3.8-10.6) k/uL RBC 1.57 L (3.80-5.40) m/uL Hgb 5.6 L* D (11.4-16.0) gm/dL Hct 16.0 L* (34.0-46.0) % MCV 101.9 H D (80.0-100.0) fL MCH 35.7 H (25.0-35.0) pg MCHC 35.1 (31.0-37.0) g/dL RDW 17.1 H (11.5-15.5) % MPV 10.8 Anisocytosis Slight Macrocytosis Slight PT 10.2 (9.0-12.0) sec INR 0.9 (<1.2) APTT 28.1 (22.0-30.0) sec Sodium 140 (137-145) mmol/L Potassium 3.2 L (3.5-5.1) mmol/L Chloride 108 H (98-107) mmol/L Carbon Dioxide 23 (22-30) mmol/L Anion Gap 9 mmol/L BUN 10 (7-17) mg/dL Creatinine 0.52 (0.52-1.04) mg/dL Est GFR (CKD-EPI)AfAm >90 (>60 ml/min/1.73 sqM) Est GFR (CKD-EPI)NonAf >90 (>60 ml/min/1.73 sqM) Glucose 89 (74-99) mg/dL Calcium 8.5 (8.4-10.2) mg/dL Total Bilirubin 0.6 (0.2-1.3) mg/dL AST 18 (14-36) U/L ALT 23 (4-34) U/L Alkaline Phosphatase 183 H (38-126) U/L Total Protein 5.5 L (6.3-8.2) g/dL Albumin 3.5 (3.5-5.0) g/dL Blood Type Blood Type Recheck Bld Type Recheck Status Antibody Screen Spec Expiration Date 04/23/21 Range/Units 12:18 WBC (3.8-10.6) k/uL RBC (3.80-5.40) m/uL Hgb (11.4-16.0) gm/dL Hct (34.0-46.0) % MCV (80.0-100.0) fL MCH (25.0-35.0) pg MCHC (31.0-37.0) g/dL RDW (11.5-15.5) % MPV Anisocytosis Macrocytosis PT (9.0-12.0) sec INR (<1.2) APTT (22.0-30.0) sec Sodium (137-145) mmol/L Potassium (3.5-5.1) mmol/L Chloride (98-107) mmol/L Carbon Dioxide (22-30) mmol/L Anion Gap mmol/L BUN (7-17) mg/dL Creatinine (0.52-1.04) mg/dL Est GFR (CKD-EPI)AfAm (>60 ml/min/1.73 sqM) Est GFR (CKD-EPI)NonAf (>60 ml/min/1.73 sqM) Glucose (74-99) mg/dL Calcium (8.4-10.2) mg/dL Total Bilirubin (0.2-1.3) mg/dL AST (14-36) U/L ALT (4-34) U/L Alkaline Phosphatase (38-126) U/L Total Protein (6.3-8.2) g/dL Albumin (3.5-5.0) g/dL Blood Type O Positive Blood Type Recheck O Pos Bld Type Recheck Status No Antibody Screen NEGATIVE Spec Expiration Date 04/26/20212317 Disposition Clinical Impression: Symptomatic anemia Disposition: ADMITTED IP TO THIS HOSP Is patient prescribed a controlled substance at d/c from ED?: No Referrals: Mike Jaime MD [Primary Care Provider] - 1-2 days Decision Time: 13:27
[2021-04-23 12:46] LABS: Anisocytosis Slight; Basophils % (A) 0 %; Eosinophils % (A) 1 %; Lymphocytes # (A) 0.6 k/uL (1.0-4.8); Lymphocytes % (A) 13 %; MCH 35.7 pg (25.0-35.0); MCHC 35.1 g/dL (31.0-37.0); Macrocytosis Slight; Mean Platelet Volume 10.8; Monocytes # (A) 0.3 k/uL (0-1.0); Monocytes % (A) 6 %; Neutrophils # (A) 3.7 k/uL (1.3-7.7); Neutrophils % (A) 77 %; RBC 1.57 m/uL (3.80-5.40); RDW 17.1 % (11.5-15.5); WBC 4.8 k/uL (3.8-10.6)
[2021-04-23 13:00] LABS: INR 0.9 (<1.2); Prothrombin Time 10.2 sec (9.0-12.0)
[2021-04-23 13:01] LABS: Partial Thromboplastin Time 28.1 sec (22.0-30.0)
[2021-04-23 13:07] LABS: HGB 5.6 gm/dL (11.4-16.0); MCV 101.9 fL (80.0-100.0)
[2021-04-23 13:10] LABS: ALT 23 U/L (4-34); AST 18 U/L (14-36); African American GFR (CKD) >90 (>60 ml/min/1.73 sqM); Albumin 3.5 g/dL (3.5-5.0); Alkaline Phosphatase 183 U/L (38-126); Anion Gap 9 mmol/L; Blood Urea Nitrogen 10 mg/dL (7-17); Calcium 8.5 mg/dL (8.4-10.2); Carbon Dioxide 23 mmol/L (22-30); Chloride 108 mmol/L (98-107); Glucose 89 mg/dL (74-99); Non-African American GFR(CKD) >90 (>60 ml/min/1.73 sqM); Potassium 3.2 mmol/L (3.5-5.1); Sodium 140 mmol/L (137-145); Total Bilirubin 0.6 mg/dL (0.2-1.3); Total Protein 5.5 g/dL (6.3-8.2)
[2021-04-23] MEDS ORDERED: ACETAMINOPHEN TAB 325 MG TAB PO PRN (13:28)
[2021-04-23] MEDS ORDERED: NALOXONE 0.4 MG/ML 1 ML VIAL IV PRN (13:28)
[2021-04-23 13:29] LABS: Platelet Count 14 k/uL (150-450)
[2021-04-23] MEDS: PANTOPRAZOLE 40 MG/10 ML VIAL IV SCH (15:49)
[2021-04-24 06:50] LABS: Anisocytosis Slight; Basophils % (A) 0 %; Eosinophils % (A) 1 %; HCT 20.8 % (34.0-46.0); Lymphocytes # (A) 0.5 k/uL (1.0-4.8); Lymphocytes % (A) 11 %; MCH 33.9 pg (25.0-35.0); MCHC 34.3 g/dL (31.0-37.0); Macrocytosis Slight; Mean Platelet Volume 9.3; Monocytes # (A) 0.2 k/uL (0-1.0); Monocytes % (A) 5 %; Neutrophils # (A) 3.6 k/uL (1.3-7.7); Neutrophils % (A) 80 %; WBC 4.5 k/uL (3.8-10.6)
[2021-04-24 06:59] LABS: HGB 7.1 gm/dL (11.4-16.0); Platelet Count 16 k/uL (150-450)
[2021-04-24] MEDS: PANTOPRAZOLE 40 MG/10 ML VIAL IV SCH (08:37)
[2021-04-24] MEDS ORDERED: Magnesium Replacement Protocol 1 EACH MISC MISCELLANE PRN (09:20)
--- NOTE | 2021-04-24 09:22 | P.HPIM ---
History of Present Illness H&P Date: 04/24/21 Chief Complaint: anemai HISTORY AND PHYSICAL AND DISCHARGE SUMMARY: HISTORY OF PRESENT ILLNESS This is a 70-year-old female patient of Dr. Mike Jaime with past medical history of non-Hodgkin's diffuse large B cell lymphoma under the care of Dr. Alcala, history of follicular lymphoma treated with chemotherapy and immunotherapy in 2019, deafness in the right ear, gastroesophageal reflux disease patient states that she have follow-up appointment with Marija Lema NP, and was sent to the emergency center for blood transfusion. Patient denies any signs of bleeding or unusual bruising. Patient does not recall her last colonoscopy date. Patient presented to [facility] emergency center for evaluati on. She was afebrile, heart rate 73, blood pressure 94/56, pulse ox 97% on room air. Initial blood work revealed WBC 4.8, hemoglobin 5.6, platelet count 14. INR 0.9. Sodium 140, potassium 3.2, chloride 108, CO2 23, creatinine 0.52. Alkaline phosphatase 183 otherwise liver function tests were normal. Patient had blood work at oncology office and had a potassium of 3.1 and magnesium of 1.2. Repeat blood work this morning reveals WBC 4.5, hemoglobin 7.1, platelet count 16. Patient has been transfused 2 units of irradiated RBCs. Patient has been seen by oncology and has been cleared for discharge. REVIEW OF SYSTEMS Constitutional: No fever, no chills, no night sweats. No weight change. No weakness, fatigue or lethargy. No daytime sleepiness. EENT: No headache. No blurred vision or double vision, no loss of vision. No loss of Hearing, no ringing in the ears, no dizziness. No nasal drainage or congestion. No epistaxis. No sore throat. Lungs: No shortness of breath, cough, no sputum production. No wheezing. Cardiovascular: No chest pain, no lower extremity edema. No palpitations. No paroxysmal nocturnal dyspnea. No orthopnea. No lightheadedness or dizziness. No syncopal episodes. Abdominal: No abdominal pain. No nausea, vomiting. No diarrhea. No constipation. No bloody or tarry stools.. No loss of appetite. Genitourinary: No dysuria, increased frequency, urgency. No urinary retention. Musculoskeletal: No myalgias. No muscle weakness, no gait dysfunction, no frequent falls. No back pain. No neck pain. Integumentary: No wounds, no lesions. No rash or pruritus. No unusual bruising. No change in hair or nails. Neurologic: No aphasia. No facial droop. No change in mentation. No head injury. No headache. No paralysis. No paresthesia. Psychiatric: No depression. No anxiety. No mood swings. Endocrine: No abnormal blood sugars. No weight change. No excessive sweating or thirst. No cold intolerance. SOCIAL HISTORY She was a smoker of less than a pack a day for 21 years and quit in 1990. She drinks occasional alcohol. No marijuana or illicit drug use. FAMILY HISTORY Mother at age 60 during her sleep. Patient is 5 brothers and one has history of hypertension. Patient has one sister with no major medical problems. Patient has 3 children with no major medical problems. Patient has one uncle with history of colon cancer. PHYSICAL EXAMINATION Gen: This is 70-year-old female patient resting in recliner and appears to be in no acute distress. HEENT: Head is atraumatic, normocephalic. Pupils equal, round. Sclerae is anicte chriss. Conjunctiva pale. NECK: Supple. No JVD. No lymphadenopathy. No thyromegaly. LUNGS: Clear to auscultation. No wheezes or rhonchi. No intercostal retractions. HEART: Regular rate and rhythm. No murmur. ABDOMEN: Soft. Bowel sounds are present. No masses. No tenderness. EXTREMITIES: No pedal edema. No calf tenderness. NEUROLOGICAL: Patient is awake, alert and oriented x3. Cranial nerves 2 through 12 are grossly intact. ASSESSMENT AND PLAN 1. Acute anemia secondary to chemotherapy. Patient is status post transfusion of 2 units of irradiated packed RBCs 2. Thrombocytopenia secondary to chemotherapy. 3. Electrolyte abnormalities with hypo-kalemia, hypomagnesemia status post replacement. 4. History of diffuse large B-cell lymphoma under the care of Dr. Alcala. 5. History of follicular lymphoma in 2019. 6. Gastroesophageal reflux disease. 7. Deafness in the right ear. Patient placed as an observation status. DISCHARGE PLAN Home. DISCHARGE MEDICATIONS - NO CHANGES TO HOME MEDICATIONS L.acidoph,Paracasei, B.lactis [Probiotic] 1 cap PO DAILY 07/06/19 [History] Loratadine 10 mg PO DAILY 07/06/19 [History] Meclizine [Antivert] 25 mg PO TID PRN 07/06/19 [History] Famotidine [Pepcid] 20 mg PO BID 07/28/19 [History] Acetaminophen Tab [Tylenol] 325 mg PO Q4H PRN 02/23/21 [History] Cholecalciferol (Vitamin D3) [Vitamin D3 (5000 Iu)] 125 mcg PO DAILY 02/23/21 [History] Magnesium Oxide [Magox 400] 400 mg PO DAILY 02/23/21 [History] Zinc 50 mg PO DAILY 02/23/21 [History] Ondansetron HCl [Zofran] 4 mg PO Q6HR PRN #30 tab 02/26/21 [Rx] Pantoprazole [Protonix] 40 mg PO AC-BID tablet. 03/18/21 [Rx] Acyclovir 400 mg PO BID 30 Days tablet 04/13/21 [Rx] Ciprofloxacin HCl [Cipro] 500 mg PO Q12H 10 Days #2 tab 04/13/21 [Rx] Nystatin 100,000 Unit/ml Susp [Mycostatin Oral Susp] 6 ml PO QID #360 ml [Rx] OLANZapine [ZyPREXA] 5 mg PO HS tab 04/13/21 [Rx] Impression and plan of care have been directed as dictated by the signing physician. Renetta Schneider nurse practitioner acting as scribe for signing physician. 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 Other hx: vertigo, sinus problems, cataract L eye, deaf R ear. History of Any Multi-Drug Resistant Organisms: None Reported Past Surgical History: Appendectomy, Hysterectomy, Tonsillectomy Additional Past Surgical History / Comment(s): excisional biopsy above R clavicle/R thigh mass, 02/06/21 R mandible biopsty, R cataract removal/lens implant, bilateral eye surgery for retinal tear. Past Anesthesia/Blood Transfusion Reactions: No Reported Reaction Additional Past Anesthesia/Blood Transfusion Reaction / Comment(s): Pt has received blood in past without reaction. Past Psychological History: No Psychological Hx Reported Additional Psychological History / Comment(s): Pt resides with her spouse and a dog. She is independent. Smoking Status: Former smoker Additional Past Alcohol Use History / Comment(s): Pt started smoking in 1969 and quit in 1990 - Past Family History Father Family Medical History: Coronary Artery Disease (CAD), CVA/TIA Additional Family Medical History / Comment(s): Disease at age of 70 Mother Family Medical History: No Reported History, Coronary Artery Disease (CAD) Brother(s) Family Medical History: No Reported History Sister(s) Family Medical History: No Reported History Medications and Allergies Home Medications Medication Instructions Recorded Confirmed Type L.acidoph,Paracasei, B.lactis 1 cap PO DAILY 07/06/19 04/23/21 History [Probiotic] Loratadine 10 mg PO DAILY 07/06/19 04/23/21 History Meclizine [Antivert] 25 mg PO TID PRN 07/06/19 04/23/21 History Famotidine [Pepcid] 20 mg PO BID 07/28/19 04/23/21 History Acetaminophen Tab [Tylenol] 325 mg PO Q4H PRN 02/23/21 04/23/21 History Cholecalciferol (Vitamin D3) 125 mcg PO DAILY 02/23/21 04/23/21 History [Vitamin D3 (5000 Iu)] Magnesium Oxide [Magox 400] 400 mg PO DAILY 02/23/21 04/23/21 History Zinc 50 mg PO DAILY 02/23/21 04/23/21 History Ondansetron HCl [Zofran] 4 mg PO Q6HR PRN #30 tab 02/26/21 04/23/21 Rx Pantoprazole [Protonix] 40 mg PO AC-BID tablet. 03/18/21 04/23/21 Rx Acyclovir 400 mg PO BID 30 Days tablet 04/13/21 04/23/21 Rx Ciprofloxacin HCl [Cipro] 500 mg PO Q12H 10 Days #2 tab 04/13/21 04/23/21 Rx Nystatin 100,000 Unit/ml Susp 6 ml PO QID #360 ml 04/13/21 04/23/21 Rx [Mycostatin Oral Susp] OLANZapine [ZyPREXA] 5 mg PO HS tab 04/13/21 04/23/21 Rx Allergies Allergy/AdvReac Type Severity Reaction Status Date / Time No Known Allergies Allergy Verified 04/23/21 12:21 Physical Exam Vitals: Vital Signs Temp Pulse Pulse Resp BP BP BP 04/24/21 04:17 97.9 F 66 16 104/66 04/23/21 22:40 98.3 F 74 16 82/53 04/23/21 19:26 98.3 F 74 16 82/53 04/23/21 19:25 98.3 F 74 16 82/53 04/23/21 18:43 98.3 F 73 18 98/55 04/23/21 18:00 98 F 72 16 95/70 04/23/21 17:30 98.2 F 72 16 103/87 04/23/21 17:20 98.3 F 73 16 94/56 04/23/21 16:36 98.3 F 82 18 97/55 04/23/21 15:22 98.7 F 77 16 103/62 04/23/21 14:52 98.8 F 85 18 99/60 04/23/21 14:42 98.3 F 83 16 97/52 04/23/21 14:12 84 18 104/63 04/23/21 13:00 78 18 96/57 04/23/21 11:47 98.3 F 91 18 120/80 Pulse Ox 04/24/21 04:17 99 04/23/21 22:40 98 04/23/21 19:26 98 04/23/21 19:25 98 04/23/21 18:43 98 04/23/21 18:00 100 04/23/21 17:30 04/23/21 17:20 97 04/23/21 16:36 99 04/23/21 15:22 04/23/21 14:52 04/23/21 14:42 97 04/23/21 14:12 99 04/23/21 13:00 98 04/23/21 11:47 100 Intake and Output 04/23/21 04/24/21 04/24/21 22:59 06:59 14:59 Intake Total 310 240 Balance 310 240 Intake: Oral 240 Blood Product 310 Rc Irr As1 Unit 0 [id number] Rc Irr As1 Unit 310 [id number] Other: Voiding Method Toilet # Voids 3 Weight 68.039 kg Results CBC & Chem 7: 04/24/21 05:27 04/23/21 12:18 Labs: Abnormal Lab Results - Last 24 Hours (Table) 04/23/21 04/23/21 04/23/21 Range/Units 12:18 12:18 12:18 RBC 1.57 L (3.80-5.40) m/uL Hgb 5.6 L* D (11.4-16.0) gm/dL Hct 16.0 L* (34.0-46.0) % MCV 101.9 H D (80.0-100.0) fL MCH 35.7 H (25.0-35.0) pg RDW 17.1 H (11.5-15.5) % Plt Count 14 L* D (150-450) k/uL Lymphocytes # 0.6 L (1.0-4.8) k/uL Potassium 3.2 L (3.5-5.1) mmol/L Chloride 108 H (98-107) mmol/L Alkaline Phosphatase 183 H (38-126) U/L Total Protein 5.5 L (6.3-8.2) g/dL Crossmatch See Detail 04/24/21 Range/Units 05:27 RBC 2.10 L (3.80-5.40) m/uL Hgb 7.1 L D (11.4-16.0) gm/dL Hct 20.8 L (34.0-46.0) % MCV (80.0-100.0) fL MCH (25.0-35.0) pg RDW 19.0 H (11.5-15.5) % Plt Count 16 L* (150-450) k/uL Lymphocytes # 0.5 L (1.0-4.8) k/uL Potassium (3.5-5.1) mmol/L Chloride (98-107) mmol/L Alkaline Phosphatase (38-126) U/L Total Protein (6.3-8.2) g/dL Crossmatch
[2021-04-24] MEDS: MAGNESIUM SULFATE-D5W PMX 1 GM in DEXTROSE/WATER 1 100ML.BAG IVPB SCH ×3 (10:27→12:56)
[2021-04-24] MEDS: POTASSIUM CHLORIDE ER 20 MEQ TAB.ER PO SCH ×2 (10:28→11:51)
[2021-04-24 12:09] VITALS: BP 130/70; PULSE 71; RESP 17; TEMP 97.7
--- NOTE | 2021-04-24 15:33 | P.CONS ---
History of Present Illness - Reason for Consult Consult date: 04/24/21 Oncology care Requesting physician: Felipe Jaimes - Chief Complaint severe chemo induced anemia - History of Present Illness Mrs. Arredondo is a very pleasant 70-year-old female patient of Dr. Alcala who is admitted because of chemotherapy induced anemia. She was seen in the office yesterday for routine lab draw after her third cycle of R ICE 04/13/21 with G-CSF on 04/16/21. Her hemoglobin was found to be 5.7, she was symptomatic. She was directed for admission to the hospital for cardiac monitoring until she would could receive blood. Hemoglobin is 7.1 today. Platelets are 16,000. Case was discussed briefly with Internal Medicine was is going to be supplementi ng her potassium and magnesium before discharge. Patient has no complaints today on a 10 point review of systems Malignancy history: In April 2019 patient initially noted a lump above the right collarbone and the one on the left upper thigh. They progressed in size over time. She also exhibited constitutional symptoms of fatigue, sweats and decreased appetite. PCP referred her to Dr. Beyer. She had excisional biopsy of both sites 05/14/19. The right supraclavicular node showed replacement by necrotic nonviable tissue, possible diffuse large B-cell lymphoma. 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 Flow cytometry analysis confirmed the presence of CD19, CD20 and CD10 positive lymphocytic population. MYC testing was ordered and came back negative ruling out doublet/triple hit pathology. PET 06/15/19 showed multiple areas of uptake, including bilateral submandibular, bilateral supraclavicular, bilateral axillary, mediastinal, spleen, retrocrural and retroperitoneal as well as pelvic and inguinal. Multiple hypermetabolic foci were seen along the sternum with osseous involvement in the left anterior mid rib and right humeral head. She was started on RCHOP on 07/07/19, completing 6 cycles 10/21/19. She followed up as directed. She was seen at her own request on 01/11/21. She had noted 1-2 lumps just behind the angle of the rt mandible in mid 12/17. Labs were normal. PET showed uptake in the right cervical and supraclavicular nodes, as well as and a left inguinal node. Biopsy 02/06/21, revealed diffuse large B-cell lymphoma. The patient was admitted to the hospital on 02/23/21 for cycle 1 of R- ICE. She received Rituxan in the office on 02/22/21. She tolerated treatment well and was discharged on 02/26/21. She also received Neulasta on 02/27/21. PET scan after 2 cycles showed essentially complete response. She just completed 3/3 cycles of RICE 04/13/21. She received G-CSF on 04/16/21 Review of Systems 10 point ROS is neg Past Medical History Past Medical History: Cancer, Eye Disorder, GERD/Reflux, Hearing Disorder / Deafness Additional Past Medical History / Comment(s): 04/2019 follicular lymphoma tx with chemo/immunotherapy, 01/2021 diagnosed with diffuse large B cell lymphoma-here for 3rd round chemo. Other hx: vertigo, sinus problems, cataract L eye, deaf R ear. History of Any Multi-Drug Resistant Organisms: None Reported Past Surgical History: Appendectomy, Hysterectomy, Tonsillectomy Additional Past Surgical History / Comment(s): excisional biopsy above R clavicle/R thigh mass, 02/06/21 R mandible biopsty, R cataract removal/lens implant, bilateral eye surgery for retinal tear. Past Anesthesia/Blood Transfusion Reactions: No Reported Reaction Additional Past Anesthesia/Blood Transfusion Reaction / Comm: Pt has received blood in past without reaction. Past Psychological History: No Psychological Hx Reported Additional Psychological History / Comment(s): Pt resides with her spouse and a dog. She is independent. Smoking Status: Former smoker Past Alcohol Use History: None Reported Additional Past Alcohol Use History / Comment(s): Pt started smoking in 1969 and quit in 1990 Past Drug Use History: None Reported - Past Family History Father Family Medical History: Coronary Artery Disease (CAD), CVA/TIA Additional Family Medical History / Comment(s): Disease at age of 70 Mother Family Medical History: No Reported History, Coronary Artery Disease (CAD) Brother(s) Family Medical History: No Reported History Sister(s) Family Medical History: No Reported History Medications and Allergies Home Medications Medication Instructions Recorded Confirmed Type L.acidoph,Paracasei, B.lactis 1 cap PO DAILY 07/06/19 04/23/21 History [Probiotic] Loratadine 10 mg PO DAILY 07/06/19 04/23/21 History Meclizine [Antivert] 25 mg PO TID PRN 07/06/19 04/23/21 History Famotidine [Pepcid] 20 mg PO BID 07/28/19 04/23/21 History Acetaminophen Tab [Tylenol] 325 mg PO Q4H PRN 02/23/21 04/23/21 History Cholecalciferol (Vitamin D3) 125 mcg PO DAILY 02/23/21 04/23/21 History [Vitamin D3 (5000 Iu)] Magnesium Oxide [Magox 400] 400 mg PO DAILY 02/23/21 04/23/21 History Zinc 50 mg PO DAILY 02/23/21 04/23/21 History Ondansetron HCl [Zofran] 4 mg PO Q6HR PRN #30 tab 02/26/21 04/23/21 Rx Pantoprazole [Protonix] 40 mg PO AC-BID tablet. 03/18/21 04/23/21 Rx Acyclovir 400 mg PO BID 30 Days tablet 04/13/21 04/23/21 Rx Ciprofloxacin HCl [Cipro] 500 mg PO Q12H 10 Days #2 tab 04/13/21 04/23/21 Rx Nystatin 100,000 Unit/ml Susp 6 ml PO QID #360 ml 04/13/21 04/23/21 Rx [Mycostatin Oral Susp] OLANZapine [ZyPREXA] 5 mg PO HS tab 04/13/21 04/23/21 Rx Allergies Allergy/AdvReac Type Severity Reaction Status Date / Time No Known Allergies Allergy Verified 04/23/21 12:21 Physical Exam Vitals: Vital Signs Temp Pulse Pulse Resp BP BP BP 04/24/21 04:17 97.9 F 66 16 104/66 04/23/21 22:40 98.3 F 74 16 82/53 04/23/21 19:26 98.3 F 74 16 82/53 04/23/21 19:25 98.3 F 74 16 82/53 04/23/21 18:43 98.3 F 73 18 98/55 04/23/21 18:00 98 F 72 16 95/70 04/23/21 17:30 98.2 F 72 16 103/87 04/23/21 17:20 98.3 F 73 16 94/56 04/23/21 16:36 98.3 F 82 18 97/55 04/23/21 15:22 98.7 F 77 16 103/62 04/23/21 14:52 98.8 F 85 18 99/60 04/23/21 14:42 98.3 F 83 16 97/52 04/23/21 14:12 84 18 104/63 04/23/21 13:00 78 18 96/57 04/23/21 11:47 98.3 F 91 18 120/80 Pulse Ox 04/24/21 04:17 99 04/23/21 22:40 98 04/23/21 19:26 98 04/23/21 19:25 98 04/23/21 18:43 98 04/23/21 18:00 100 04/23/21 17:30 04/23/21 17:20 97 04/23/21 16:36 99 04/23/21 15:22 04/23/21 14:52 04/23/21 14:42 97 04/23/21 14:12 99 04/23/21 13:00 98 04/23/21 11:47 100 Intake and Output 04/23/21 04/24/21 04/24/21 22:59 06:59 14:59 Intake Total 310 240 Balance 310 240 Intake: Oral 240 Blood Product 310 Rc Irr As1 Unit 0 [id number] Rc Irr As1 Unit 310 [id number] Other: Voiding Method Toilet # Voids 3 Weight 68.039 kg - Constitutional General appearance: average body habitus, cooperative, no acute distress - EENT Eyes: anicteric sclerae, EOMI ENT: hearing grossly normal, normal oropharynx - Neck Neck: no lymphadenopathy - Respiratory Respiratory: bilateral: CTA - Cardiovascular Rhythm: regular Heart sounds: normal: S1, S2 Abnormal Heart Sounds: no systolic murmur, no diastolic murmur, no rub, no S3 Gallop, no S4 Gallop, no click, no other leg Peripheral Edema: bilateral: None - Gastrointestinal General gastrointestinal: no absent bowel sounds, no decreased bowel sounds, no distended, no hepatomegaly, no hyperactive bowel sounds, normal bowel sounds, no organomegaly, no rigid, no scaphoid, soft, no splenomegaly, no tenderness, no umbilical hernia, no ventral hernia - Neurologic Neurologic: CNII-XII intact - Musculoskeletal Musculoskeletal: strength equal bilaterally - Psychiatric Psychiatric: A&O x's 3, appropriate affect, intact judgment & insight Results CBC & Chem 7: 04/24/21 05:27 04/23/21 12:18 Labs: Abnormal Lab Results - Last 24 Hours (Table) 04/23/21 04/23/21 04/23/21 Range/Units 12:18 12:18 12:18 RBC 1.57 L (3.80-5.40) m/uL Hgb 5.6 L* D (11.4-16.0) gm/dL Hct 16.0 L* (34.0-46.0) % MCV 101.9 H D (80.0-100.0) fL MCH 35.7 H (25.0-35.0) pg RDW 17.1 H (11.5-15.5) % Plt Count 14 L* D (150-450) k/uL Lymphocytes # 0.6 L (1.0-4.8) k/uL Potassium 3.2 L (3.5-5.1) mmol/L Chloride 108 H (98-107) mmol/L Alkaline Phosphatase 183 H (38-126) U/L Total Protein 5.5 L (6.3-8.2) g/dL Crossmatch See Detail 04/24/21 Range/Units 05:27 RBC 2.10 L (3.80-5.40) m/uL Hgb 7.1 L D (11.4-16.0) gm/dL Hct 20.8 L (34.0-46.0) % MCV (80.0-100.0) fL MCH (25.0-35.0) pg RDW 19.0 H (11.5-15.5) % Plt Count 16 L* (150-450) k/uL Lymphocytes # 0.5 L (1.0-4.8) k/uL Potassium (3.5-5.1) mmol/L Chloride (98-107) mmol/L Alkaline Phosphatase (38-126) U/L Total Protein (6.3-8.2) g/dL Crossmatch Assessment and Plan (1) Bicytopenia Narrative/Plan: 2/2 to chemotherapy Transfused with 1 unit, Hgb 7.1 Plt 16,000, no s/s bleeding, no transfusion at this time Status: Acute Priority: High Code(s): D75.89 - OTHER SPECIFIED DISEASES OF BLOOD AND BLOOD-FORMING ORGANS SNOMED Code(s): 87122552 Plan: Plan to change pt f/u to twice a week CBC to evaluate for transfusions so can be done outpt. Case discussed briefly with Internal Medicine. Patient is okay for discharge from Hem/Onc standpoint once cleared by Internal Medicine Doctor attests: I performed a history and physical examination of this patient, developed impression and plan of care, discussed with dictator. I agree with dictators note, documented as a scribe.
== END 2021-04-24 15:09 | disposition home or self-care (01) ==
LOC: EC 11:46 → 6NMEDSUR 13:28 → 5NMEDONC 15:29
PROVIDERS: ADMIT Family Medicine; ATTEND Family Medicine
DX: D64.81 Anemia due to antineoplastic chemotherapy (principal); T45.1X5A Adverse effect of antineoplastic and immunosuppressive drugs, initial encounter; C83.38 Diffuse large B-cell lymphoma, lymph nodes of multiple sites; D69.59 Other secondary thrombocytopenia; E83.42 Hypomagnesemia; E87.6 Hypokalemia; H91.91 Unspecified hearing loss, right ear; K21.9 Gastro-esophageal reflux disease without esophagitis; Z79.899 Other long term (current) drug therapy; Z90.710 Acquired absence of both cervix and uterus; Z98.41 Cataract extraction status, right eye; Z87.891 Personal history of nicotine dependence; Z90.89 Acquired absence of other organs; Z96.1 Presence of intraocular lens; Z82.49 Family history of ischemic heart disease and other diseases of the circulatory system; Z82.3 Family history of stroke
CPT/HCPCS: 96376; 36430; 96365; 96366; 96375 ×2; 99285; 36415; 93005; 86900; 86901; 80053; 85025 ×2; 85610; 85730; 86850; 86920; G0378 ×2; P9040; J3475; J1642; C9113 ×2

== ENCOUNTER 2021-05-09 08:42 | Inpatient (IN) | payer MEDICARE ==
[2021-05-09 09:58] LABS: Anisocytosis Moderate; Basophils % (A) 0 %; Eosinophils % (A) 1 %; HCT 28.4 % (34.0-46.0); Hypochromasia Slight; Lymphocytes # (A) 0.8 k/uL (1.0-4.8); Lymphocytes % (A) 16 %; MCHC 33.2 g/dL (31.0-37.0); Macrocytosis Marked; Mean Platelet Volume 7.6; Monocytes # (A) 0.2 k/uL (0-1.0); Monocytes % (A) 5 %; Neutrophils # (A) 3.7 k/uL (1.3-7.7); Neutrophils % (A) 77 %; Poikilocytosis Slight; RBC 2.61 m/uL (3.80-5.40); RDW 21.6 % (11.5-15.5); WBC 4.9 k/uL (3.8-10.6)
[2021-05-09 10:12] LABS: ALT 30 U/L (4-34); AST 32 U/L (14-36); African American GFR (CKD) >90 (>60 ml/min/1.73 sqM); Alkaline Phosphatase 148 U/L (38-126); Anion Gap 10 mmol/L; Blood Urea Nitrogen 14 mg/dL (7-17); Calcium 9.1 mg/dL (8.4-10.2); Carbon Dioxide 21 mmol/L (22-30); Chloride 111 mmol/L (98-107); Glucose 89 mg/dL (74-99); Non-African American GFR(CKD) >90 (>60 ml/min/1.73 sqM); Phosphorus 4.1 mg/dL (2.5-4.5); Potassium 3.2 mmol/L (3.5-5.1); Sodium 142 mmol/L (137-145); Total Bilirubin 0.3 mg/dL (0.2-1.3)
[2021-05-09 10:14] LABS: MCV 108.6 fL (80.0-100.0)
[2021-05-09 10:15] LABS: HGB 9.4 gm/dL (11.4-16.0); Platelet Count 180 k/uL (150-450)
[2021-05-09] MEDS: FAMOTIDINE 20 MG/2 ML VIAL IV SCH (10:43)
[2021-05-09] MEDS: DEXAMETHASONE SOD PHOSPHATE 10 MG/ML 1 ML VIAL IV SCH (10:43)
[2021-05-09] MEDS: ONDANSETRON 16 MG in SODIUM CHLORIDE 0.9% 50 ML IVPB SCH (10:43)
[2021-05-09] MEDS: SODIUM CHLORIDE 0.9% 1,000 ML IV SCH ×2 (10:43→17:28)
[2021-05-09] MEDS: ETOPOSIDE IV SCH (11:42)
[2021-05-09] MEDS: SODIUM CHLORIDE 0.9% IV SCH (11:42)
[2021-05-09] MEDS ORDERED: ACETAMINOPHEN TAB 325 MG TAB PO PRN (13:48)
[2021-05-09] MEDS ORDERED: MECLIZINE 25 MG TAB PO PRN (13:48)
[2021-05-09] MEDS ORDERED: ONDANSETRON 4 MG/2 ML VIAL IVP PRN (13:53)
--- NOTE | 2021-05-09 13:53 | P.HPIM ---
History of Present Illness H&P Date: 05/09/21 Chief Complaint: Timed Chemotherapy Ms. Rodriguez is a pleasant white female, in overall good health and baseline. The patient had felt a lump just above her right collarbone, as well as another lump in the left upper thigh, in early 05/17. These seem to increased progressively in size. Around the same time she also developed progressive symptoms of fatigue, sweats, and decreased appetite. She was seen by her primary care physician and referred to Dr. benson. She had an excisional biopsy on 05/14/19 at both sites. The right supraclavicular node showed replacement by necrotic nonviable tissue possible diffuse large B-cell lymphoma. 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 Flow cytometric analysis confirmed the presence of CD19, CD20 and CD10 positive lymphocytic population. MYC testing was ordered and came back negative ruling out doublet/triple hit pathology. The patient had a PET scan done on 06/15/19, they showed multiple areas of uptake, including bilateral submandibular, bilateral supraclavicular, bilateral axillary, mediastinal, spleen, retrocrural and retroperitoneal as well as pelvic and inguinal. Multiple hypermetabolic foci were seen along the sternum ,. Osseous involvement was also noted in the left anterior mid rib and right humeral head. She was referred here for further evaluation and recommendations She denied any prior history of malignancy She was started on R - CHOP on 07/07/19 and is s/p 6 cycles, completing those on 10/21/19 She was hospitalized after C 1 with low BP, dehydration, pancytopenia and electrolyte abnormalities. She improved with supportive treatment and was able to have cycle 2 on schedule.. Neulasta was added with cycle2 She tripped and fell in mid 11/18, and dislocated her rt shoulder. This has resolved. She was seen at her own request on 01/11/21. She had noted 1-2 lumps just behind the angle of the rt mandible in mid 12/17. She was seen by her PCP and was asked to f/u. She has mild tenderness associated. labs were normal. PET scan showed uptake in the right cervical and supraclavicular nodes, as well as and a left inguinal node. She was also referred for repeat biopsy, performed on 02/06/21. this again re vealed diffuse large B-cell lymphoma. She denied any fevers/chills/n/vomiting. she has not noted any new adenopathy. Appetite is overall satisfactory. Blood pressure has been mostly stable in the normal range. Bowel movements are fairly normal. Her left groin mass has not recurred. This has now essentially resolved and further follow-up was not recommended by surgery. She had eye surgery for retinal detachment in 09/17 the pathology report and implications were discussed in detail with the patient and her family. This is essentially the same histology, with recurrence after slightly more than a year post R-CHOP. Overall burden of disease is comparatively mild for PET scan. Her performance status is normal. She now presents for her 4th cycle of salvage chemotherapy with R-ICE regimen. No complaints on admission. PET scan after 2 cycles showed essentially complete response. She just completed 3/3 cycles of RICE 04/13/21. She received G-CSF on 04/16/21 Review of Systems All systems: negative Constitutional: Reports as per HPI Past Medical History Past Medical History: Cancer, Eye Disorder, GERD/Reflux, Hearing Disorder / Deafness Additional Past Medical History / Comment(s): 04/2019 follicular lymphoma tx with chemo/immunotherapy, 01/2021 diagnosed with diffuse large B cell lymphoma-here for 3rd round chemo. Other hx: vertigo, sinus problems, cataract L eye, deaf R ear. History of Any Multi-Drug Resistant Organisms: None Reported Past Surgical History: Appendectomy, Hysterectomy, Tonsillectomy Additional Past Surgical History / Comment(s): excisional biopsy above R clavicle/R thigh mass, 02/06/21 R mandible biopsty, R cataract removal/lens implant, bilateral eye surgery for retinal tear. Past Anesthesia/Blood Transfusion Reactions: No Reported Reaction Additional Past Anesthesia/Blood Transfusion Reaction / Comment(s): Pt has received blood in past without reaction. Past Psychological History: No Psychological Hx Reported Additional Psychological History / Comment(s): Pt resides with her spouse and a dog. She is independent. Smoking Status: Former smoker Past Alcohol Use History: None Reported Additional Past Alcohol Use History / Comment(s): Pt started smoking in 1969 and quit in 1990 Past Drug Use History: None Reported - Past Family History Father Family Medical History: Coronary Artery Disease (CAD), CVA/TIA Additional Family Medical History / Comment(s): Disease at age of 70 Mother Family Medical History: No Reported History, Coronary Artery Disease (CAD) Brother(s) Family Medical History: No Reported History Sister(s) Family Medical History: No Reported History Medications and Allergies Home Medications Medication Instructions Recorded Confirmed Type L.acidoph,Paracasei, B.lactis 1 cap PO DAILY 07/06/19 05/09/21 History [Probiotic] Loratadine 10 mg PO DAILY 07/06/19 05/09/21 History Meclizine [Antivert] 25 mg PO TID PRN 07/06/19 05/09/21 History Famotidine [Pepcid] 20 mg PO BID 07/28/19 05/09/21 History Acetaminophen Tab [Tylenol] 325 mg PO Q4H PRN 02/23/21 05/09/21 History Cholecalciferol (Vitamin D3) 125 mcg PO DAILY 02/23/21 05/09/21 History [Vitamin D3 (5000 Iu)] Magnesium Oxide [Magox 400] 400 mg PO DAILY 02/23/21 05/09/21 History Zinc 50 mg PO DAILY 02/23/21 05/09/21 History Biotin 10,000 mcg PO DAILY 05/09/21 05/09/21 History Cyanocobalamin (Vitamin B-12) 1,000 mcg PO DAILY 05/09/21 05/09/21 History [Vitamin B-12] Allergies Allergy/AdvReac Type Severity Reaction Status Date / Time No Known Allergies Allergy Verified 05/09/21 10:39 Physical Exam Vitals: Vital Signs Temp Pulse Resp BP Pulse Ox 05/09/21 11:39 97.8 F 53 L 17 123/77 99 05/09/21 08:55 98.1 F 66 17 157/84 100 Intake and Output 05/08/21 05/09/21 05/09/21 22:59 06:59 14:59 Other: Weight 67.132 kg - Constitutional General appearance: average body habitus, cooperative, no acute distress - EENT Eyes: anicteric sclerae, EOMI ENT: hearing grossly normal, normal oropharynx - Neck Neck: no lymphadenopathy - Respiratory Respiratory: bilateral: CTA - Cardiovascular Rhythm: regular Heart sounds: normal: S1, S2 Abnormal Heart Sounds: no systolic murmur, no diastolic murmur, no rub, no S3 Gallop, no S4 Gallop, no click, no other leg Peripheral Edema: bilateral: None - Gastrointestinal General gastrointestinal: no absent bowel sounds, no decreased bowel sounds, no distended, no hepatomegaly, no hyperactive bowel sounds, normal bowel sounds, no organomegaly, no rigid, no scaphoid, soft, no splenomegaly, no tenderness, no umbilical hernia, no ventral hernia - Neurologic Neurologic: CNII-XII intact - Musculoskeletal Musculoskeletal: strength equal bilaterally - Psychiatric Psychiatric: A&O x's 3, appropriate affect, intact judgment & insight Results CBC & Chem 7: 05/09/21 14:37 05/09/21 09:20 Labs: Abnormal Lab Results - Last 24 Hours (Table) 05/09/21 05/09/21 Range/Units 09:20 09:20 RBC 2.61 L (3.80-5.40) m/uL Hgb 9.4 L D (11.4-16.0) gm/dL Hct 28.4 L (34.0-46.0) % MCV 108.6 H D (80.0-100.0) fL MCH 36.0 H (25.0-35.0) pg RDW 21.6 H (11.5-15.5) % Lymphocytes # 0.8 L (1.0-4.8) k/uL Macrocytosis Marked A Potassium 3.2 L (3.5-5.1) mmol/L Chloride 111 H (98-107) mmol/L Carbon Dioxide 21 L (22-30) mmol/L Alkaline Phosphatase 148 H (38-126) U/L Total Protein 6.0 L (6.3-8.2) g/dL Thrombosis Risk Factor Assmnt - DVT/VTE Prophylaxis DVT/VTE Prophylaxis: Pharmacologic Prophylaxis ordered - Choose All That Apply Any of the Below Risk Factors Present?: No Other Risk Factors: Yes Each Risk Factor Represents 2 Points: Age 61-74 years, Central venous access, M alignancy Thrombosis Risk Factor Assessment Total Risk Factor Score: 6 Thrombosis Risk Factor Assessment Level: High Risk Assessment and Plan Plan: Assessment and Plan (1) Non-Hodgkin lymphoma Status: Acute Code(s): C85.90 - NON-HODGKIN LYMPHOMA, UNSPECIFIED, UNSPECIFIED SITE SNOMED Code(s): 962565233 (2) Pancytopenia due to antineoplastic chemotherapy Status: Acute Code(s): D61.810 - ANTINEOPLASTIC CHEMOTHERAPY INDUCED PANCYTO PENIA; T45.1X5A - ADVERSE EFFECT OF ANTINEOPLASTIC AND IMMUNOSUP DRUGS, INIT SNOMED Code(s): 549494088490702 Plan: Timed Chemotherapy with R-ICE Neulasta in office following chemotherapy Home medications ordered Medical Management team consulted Daily Labs Daily walks Continue Day ONE cycle 4 CHeck Urine for RBCs prior to ifos prophylaxic abx at discharge Physician attest: I have completed the full history and physical and agree with above dictation, dictated as a ascribe.
[2021-05-09 15:12] LABS: Partial Thromboplastin Time 22.4 sec (22.0-30.0)
[2021-05-09 15:48] LABS: Anisocytosis Moderate; Basophils % (A) 0 %; Eosinophils % (A) 0 %; HCT 27.8 % (34.0-46.0); HGB 9.2 gm/dL (11.4-16.0); Hypochromasia Slight; Lymphocytes # (A) 0.3 k/uL (1.0-4.8); Lymphocytes % (A) 6 %; MCH 36.9 pg (25.0-35.0); MCHC 33.1 g/dL (31.0-37.0); MCV 111.4 fL (80.0-100.0); Macrocytosis Marked; Mean Platelet Volume 7.4; Monocytes % (A) 1 %; Neutrophils # (A) 4.4 k/uL (1.3-7.7); Neutrophils % (A) 93 %; Platelet Count 175 k/uL (150-450); Poikilocytosis Slight; WBC 4.7 k/uL (3.8-10.6)
[2021-05-09 16:07] LABS: Prothrombin Time 10.6 sec (9.0-12.0)
[2021-05-09 17:49] LABS: Appearance,Urine Clear (Clear); Bilirubin,Urine Negative (Negative); Blood,Urine Negative (Negative); Color,Urine Light Yellow; Glucose,Urine (UA) Negative (Negative); Ketones,Urine Negative (Negative); Leukocyte Esterase,Urine Negative (Negative); Nitrite,Urine Negative (Negative); Protein,Urine Negative (Negative); Specific Gravity,Urine 1.009 (1.001-1.035); Urobilinogen,Urine <2.0 mg/dL (<2.0)
[2021-05-09] MEDS: FAMOTIDINE 20 MG TAB PO SCH (20:20)
[2021-05-09] MEDS: OLANZapine 5 MG TAB PO SCH (20:20)
[2021-05-10 04:01] LABS: African American GFR (CKD) 100.3 (60.0-200.0); Albumin 3.9 g/dL (3.80-4.90); Albumin/Globulin Ratio 2.29 (1.60-3.17); Anion Gap 11.9 mmol/L (4.00-12.00); Calcium 8.5 mg/dL (8.7-10.3); Carbon Dioxide 19.1 mmol/L (21.6-31.8); Globulin 1.7 g/dL (1.6-3.3); Magnesium 1.4 mg/dL (1.5-2.4); Non-African American GFR(CKD) 86.6 (60.0-200.0); Phosphorus 3.6 mg/dL (2.4-5.1); Total Bilirubin 0.3 mg/dL (0.3-1.2); Total Protein 5.6 g/dL (6.2-8.2); Uric Acid 4.6 mg/dL (2.9-7.7)
[2021-05-10 06:02] LABS: Anisocytosis Moderate; Basophils % (A) 0 %; Eosinophils % (A) 0 %; HCT 26.2 % (34.0-46.0); HGB 8.4 gm/dL (11.4-16.0); Hypochromasia Moderate; Lymphocytes # (A) 0.6 k/uL (1.0-4.8); Lymphocytes % (A) 15 %; MCHC 32.2 g/dL (31.0-37.0); MCV 111.7 fL (80.0-100.0); Mean Platelet Volume 8.5; Monocytes # (A) 0.2 k/uL (0-1.0); Monocytes % (A) 4 %; Neutrophils # (A) 3.2 k/uL (1.3-7.7); Neutrophils % (A) 79 %; Platelet Count 141 k/uL (150-450); Poikilocytosis Slight; RBC 2.35 m/uL (3.80-5.40); RDW 21.9 % (11.5-15.5)
[2021-05-10 06:03] LABS: Macrocytosis Marked
--- NOTE | 2021-05-10 06:34 | CONS ---
CONSULTATION 71-year-old white female presented for chemotherapy for B-cell lymphoma. MEDICATIONS: Home medicines include: Zyprexa 5 mg at night, Protonix 40 mg daily, Antivert for dizziness. Pepcid for GERD. She is having no chest pain, shortness of breath, or any difficulties. PAST MEDICAL HISTORY: GERD, hearing disorder, deafness, follicular lymphoma, treated with chemo and immunotherapy, diffuse large-cell beta cell lymphoma, vertigo. SURGERIES: Appendectomy, hysterectomy, tonsillectomy. FAMILY HISTORY: Father coronary artery disease, CVA, TIA. Mother coronary disease. Brother negative. HOME MEDICINES: Probiotics 1 daily, loratadine 10 mg daily, Antivert 25 mg t.i.d., vitamin D 3 5000 international units daily, Mag-Ox 400 mg daily. Zinc 50 mg daily. Biotin daily. Vitamin B12 daily. PHYSICAL EXAMINATION: HEENT: Normocephalic, atraumatic. CARDIOVASCULAR: S1, S2. LUNGS clear. GI soft. HEMATOLOGY: Negative Homans. PSYCH: Fair mood and affect. NEUROLOGIC: Alert and oriented x3. ASSESSMENT: 1. Non-Hodgkin's lymphoma. 2. Pancytopenia. Home medicines were reordered. Medically she is stable. Prognosis guarded. MMODL / IJN: [id number] /
[2021-05-10] MEDS: LORATADINE 10 MG TAB PO SCH (09:12)
[2021-05-10] MEDS: ENOXAPARIN 40 MG/0.4 ML SYRINGE SQ SCH (09:13)
[2021-05-10] MEDS: FAMOTIDINE 20 MG TAB PO SCH ×2 (09:13→19:50)
[2021-05-10] MEDS: PANTOPRAZOLE 40 MG TABLET PO SCH (09:13)
[2021-05-10] MEDS: CYANOCOBALAMIN 500 MCG TAB PO SCH (09:13)
[2021-05-10] MEDS: DEXAMETHASONE SOD PHOSPHATE 10 MG/ML 1 ML VIAL IV SCH (11:45)
[2021-05-10] MEDS: FAMOTIDINE 20 MG/2 ML VIAL IV SCH (11:45)
[2021-05-10] MEDS: ONDANSETRON 16 MG in SODIUM CHLORIDE 0.9% 50 ML IVPB SCH (11:45)
[2021-05-10] MEDS ORDERED: SODIUM CHLORIDE 0.9% IV ONE ×3 (12:00)
[2021-05-10] MEDS ORDERED: CARBOPLATIN IV ONE (12:00)
[2021-05-10] MEDS ORDERED: IFOSFAMIDE IV ONE (12:00)
[2021-05-10] MEDS ORDERED: [UNRECOGNIZED DRUG - OTHER] IV ONE (12:00)
[2021-05-10] MEDS ORDERED: MESNA IV ONE (12:00)
[2021-05-10] MEDS: SODIUM CHLORIDE 0.9% 1,000 ML IV SCH ×2 (12:04→14:38)
[2021-05-10] MEDS: SODIUM CHLORIDE 0.9% IV SCH (12:56)
[2021-05-10] MEDS: ETOPOSIDE IV SCH (12:56)
[2021-05-10 15:04] LABS: African American GFR (CKD) 105.5 (60.0-200.0); Albumin 3.5 g/dL (3.80-4.90); Albumin/Globulin Ratio 2.33 (1.60-3.17); Calcium 8.3 mg/dL (8.7-10.3); Globulin 1.5 g/dL (1.6-3.3); Magnesium 1.6 mg/dL (1.5-2.4); Non-African American GFR(CKD) 91.1 (60.0-200.0); Phosphorus 4.2 mg/dL (2.4-5.1); Potassium 3.8 mmol/L (3.5-5.5); Total Bilirubin 0.4 mg/dL (0.3-1.2); Uric Acid 4.9 mg/dL (2.9-7.7)
--- NOTE | 2021-05-10 16:15 | P.PN ---
Subjective Progress Note Date: 05/10/21 Principal diagnosis: Timed Chemo TOlerating day two well, no N/V?D Objective - Vital Signs Vital signs: Vital Signs Temp 98.6 F 05/10/21 08:00 Pulse 54 L 05/10/21 08:00 Resp 17 05/10/21 08:00 BP 127/49 05/10/21 08:00 Pulse Ox 99 05/10/21 08:00 Intake & Output 05/09/21 05/10/21 05/10/21 18:59 06:59 18:59 Intake Total 1550 Balance 1550 Weight 67.132 kg Intake: Intake, IV Titration 1550 Amount Etoposide 140 mg In 500 Sodium Chloride 0.9% ( Dehp Jerod 500 ml @ 507 mls /hr IV DAILY@1200 [facility] Rx# :[id number] Ondansetron 16 mg In 50 Sodium Chloride 0.9% 50 ml @ 232 mls/hr IVPB DAILY@1200 [facility] Rx#: [id number] Sodium Chloride 0.9% 1, 1000 000 ml @ 125 mls/hr IV . Q8H [facility] Rx#:[id number] Other: Voiding Method Toilet # Voids 2 - Exam Constitutional General appearance: average body habitus, cooperative, no acute distress - EENT Eyes: anicteric sclerae, EOMI ENT: hearing grossly normal, normal oropharynx - Neck Neck: no lymphadenopathy - Respiratory Respiratory: bilateral: CTA - Cardiovascular Rhythm: regular Heart sounds: normal: S1, S2 Abnormal Heart Sounds: no systolic murmur, no diastolic murmur, no rub, no S3 Gallop, no S4 Gallop, no click, no other leg Peripheral Edema: bilateral: None - Gastrointestinal General gastrointestinal: no absent bowel sounds, no decreased bowel sounds, no distended, no hepatomegaly, no hyperactive bowel sounds, normal bowel sounds, no organomegaly, no rigid, no scaphoid, soft, no splenomegaly, no tenderness, no umbilical hernia, no ventral hernia - Neurologic Neurologic: CNII-XII intact - Musculoskeletal Musculoskeletal: strength equal bilaterally - Psychiatric Psychiatric: A&O x's 3, appropriate affect, intact judgment & insight - Labs CBC & Chem 7: 05/10/21 05:32 05/10/21 05:32 Labs: Abnormal Lab Results - Last 24 Hours (Table) 05/09/21 05/09/21 05/09/21 Range/Units 09:20 09:20 14:37 RBC 2.61 L 2.50 L (3.80-5.40) m/uL Hgb 9.4 L D 9.2 L (11.4-16.0) gm/dL Hct 28.4 L 27.8 L (34.0-46.0) % MCV 108.6 H D 111.4 H (80.0-100.0) fL MCH 36.0 H 36.9 H (25.0-35.0) pg RDW 21.6 H 22.0 H (11.5-15.5) % Plt Count (150-450) k/uL Lymphocytes # 0.8 L 0.3 L (1.0-4.8) k/uL Macrocytosis Marked A Marked A Sodium (135-145) mmol/L Potassium 3.2 L (3.5-5.1) mmol/L Chloride 111 H (98-107) mmol/L Carbon Dioxide 21 L (22-30) mmol/L Glucose (70-110) mg/dL Calcium (8.7-10.3) mg/dL Magnesium (1.5-2.4) mg/dL AST (13-35) U/L Alkaline Phosphatase 148 H (38-126) U/L Total Protein 6.0 L (6.3-8.2) g/dL 05/09/21 05/10/21 Range/Units 14:37 05:32 RBC 2.35 L (3.80-5.40) m/uL Hgb 8.4 L (11.4-16.0) gm/dL Hct 26.2 L (34.0-46.0) % MCV 111.7 H (80.0-100.0) fL MCH 36.0 H (25.0-35.0) pg RDW 21.9 H (11.5-15.5) % Plt Count 141 L (150-450) k/uL Lymphocytes # 0.6 L (1.0-4.8) k/uL Macrocytosis Marked A Sodium 147 H (135-145) mmol/L Potassium (3.5-5.1) mmol/L Chloride 116 H (98-107) mmol/L Carbon Dioxide 19.1 L (22-30) mmol/L Glucose 161 H (70-110) mg/dL Calcium 8.5 L (8.7-10.3) mg/dL Magnesium 1.4 L (1.5-2.4) mg/dL AST 36 H (13-35) U/L Alkaline Phosphatase 141 H (38-126) U/L Total Protein 5.6 L (6.3-8.2) g/dL Assessment and Plan Plan: Assessment and Plan (1) Non-Hodgkin lymphoma Status: Acute Code(s): C85.90 - NON-HODGKIN LYMPHOMA, UNSPECIFIED, UNSPECIFIED SITE SNOMED Code(s): 615468090 (2) Pancytopenia due to antineoplastic chemotherapy Status: Acute Code(s): D61.810 - ANTINEOPLASTIC CHEMOTHERAPY INDUCED PANCYTOPENIA; T45.1X5A - ADVERSE EFFECT OF ANTINEOPLASTIC AND IMMUNOSUP DRUGS, INIT SNOMED Code(s): 771081858245518 Plan: Timed Chemotherapy with R-ICE Neulasta in office following chemotherapy Home medications ordered Medical Management team consulted Daily Labs Daily walks Continue Day TWO cycle 4 CHeck Urine for RBCs prior to ifos prophylaxic abx at discharge Physician attest: I have completed the full history and physical and agree with above dictation, dictated as a ascribe.
[2021-05-10] MEDS: OLANZapine 5 MG TAB PO SCH (19:50)
[2021-05-11] MEDS: SODIUM CHLORIDE 0.9% 1,000 ML IV SCH ×3 (02:09→10:03)
[2021-05-11 06:36] LABS: Anisocytosis Moderate; Basophils % (A) 0 %; Eosinophils % (A) 0 %; HCT 25.8 % (34.0-46.0); HGB 8.5 gm/dL (11.4-16.0); Hypochromasia Moderate; Lymphocytes # (A) 0.5 k/uL (1.0-4.8); Lymphocytes % (A) 14 %; MCH 36.8 pg (25.0-35.0); MCHC 33.1 g/dL (31.0-37.0); MCV 111.4 fL (80.0-100.0); Mean Platelet Volume 7.4; Monocytes # (A) 0.1 k/uL (0-1.0); Monocytes % (A) 3 %; Neutrophils # (A) 2.5 k/uL (1.3-7.7); Neutrophils % (A) 81 %; Platelet Count 154 k/uL (150-450); Poikilocytosis Slight; RBC 2.32 m/uL (3.80-5.40); RDW 21.8 % (11.5-15.5); WBC 3.1 k/uL (3.8-10.6)
[2021-05-11 06:40] LABS: Macrocytosis Marked
[2021-05-11 07:01] LABS: ALT 50 U/L (4-34); AST 57 U/L (14-36); Albumin 3.1 g/dL (3.5-5.0); Albumin/Globulin Ratio 1.5; Alkaline Phosphatase 84 U/L (38-126); Anion Gap 7 mmol/L; Calcium 8.6 mg/dL (8.4-10.2); Carbon Dioxide 21 mmol/L (22-30); Chloride 115 mmol/L (98-107); Globulin 2.1 g/dL; Glucose 87 mg/dL (74-99); LDH 522 U/L (313-618); Magnesium 1.5 mg/dL (1.6-2.3); Phosphorus 3.8 mg/dL (2.5-4.5); Sodium 143 mmol/L (137-145); Total Bilirubin 0.6 mg/dL (0.2-1.3); Total Protein 5.2 g/dL (6.3-8.2)
[2021-05-11 07:02] LABS: Blood Urea Nitrogen 8 mg/dL (7-17)
[2021-05-11] MEDS: CYANOCOBALAMIN 500 MCG TAB PO SCH (08:01)
[2021-05-11] MEDS: LORATADINE 10 MG TAB PO SCH (08:01)
[2021-05-11] MEDS: ENOXAPARIN 40 MG/0.4 ML SYRINGE SQ SCH (08:02)
[2021-05-11] MEDS: PANTOPRAZOLE 40 MG TABLET PO SCH (08:02)
[2021-05-11] MEDS: FAMOTIDINE 20 MG TAB PO SCH (08:02)
[2021-05-11 10:04] LABS: African American GFR (CKD) >90 (>60 ml/min/1.73 sqM); Non-African American GFR(CKD) >90 (>60 ml/min/1.73 sqM)
--- NOTE | 2021-05-11 12:10 | P.PN ---
Subjective Progress Note Date: 05/11/21 Principal diagnosis: Timed Chemo Tolerating chemotherapy well CBC and CMP stable Objective - Vital Signs Vital signs: Vital Signs Temp 97.9 F 05/11/21 11:00 Pulse 71 05/11/21 11:00 Resp 18 05/11/21 11:00 BP 118/63 05/11/21 11:00 Pulse Ox 96 05/11/21 11:00 Intake & Output 05/10/21 05/11/21 05/11/21 18:59 06:59 18:59 Intake Total 240 Balance 240 Intake: Oral 240 Other: Voiding Method Toilet Toilet Toilet # Voids 3 1 - Exam Constitutional General appearance: average body habitus, cooperative, no acute distress - EENT Eyes: anicteric sclerae, EOMI ENT: hearing grossly normal, normal oropharynx - Neck Neck: no lymphadenopathy - Respiratory Respiratory: bilateral: CTA - Cardiovascular Rhythm: regular Heart sounds: normal: S1, S2 Abnormal Heart Sounds: no systolic murmur, no diastolic murmur, no rub, no S3 Gallop, no S4 Gallop, no click, no other leg Peripheral Edema: bilateral: None - Gastrointestinal General gastrointestinal: no absent bowel sounds, no decreased bowel sounds, no distended, no hepatomegaly, no hyperactive bowel sounds, normal bowel sounds, no organomegaly, no rigid, no scaphoid, soft, no splenomegaly, no tenderness, no umbilical hernia, no ventral hernia - Neurologic Neurologic: CNII-XII intact - Musculoskeletal Musculoskeletal: strength equal bilaterally - Psychiatric Psychiatric: A&O x's 3, appropriate affect, intact judgment & insight - Labs CBC & Chem 7: 05/11/21 06:08 05/11/21 06:08 Labs: Abnormal Lab Results - Last 24 Hours (Table) 05/10/21 05/11/21 05/11/21 Range/Units 05:32 06:08 06:08 WBC 3.1 L (3.8-10.6) k/uL RBC 2.32 L (3.80-5.40) m/uL Hgb 8.5 L (11.4-16.0) gm/dL Hct 25.8 L (34.0-46.0) % MCV 111.4 H (80.0-100.0) fL MCH 36.8 H (25.0-35.0) pg RDW 21.8 H (11.5-15.5) % Lymphocytes # 0.5 L (1.0-4.8) k/uL Macrocytosis Marked A Sodium 148 H (135-145) mmol/L Chloride 117 H 115 H (96-109) mmol/L Carbon Dioxide 21 L (22-30) mmol/L Creatinine 0.40 L (0.52-1.04) mg/dL Calcium 8.3 L (8.7-10.3) mg/dL Magnesium 1.5 L (1.6-2.3) mg/dL AST 57 H (14-36) U/L ALT 50 H (4-34) U/L Lactate Dehydrogenase 101 L (120-246) U/L Total Protein 5.0 L 5.2 L (6.2-8.2) g/dL Albumin 3.50 L 3.1 L (3.80-4.90) g/dL Globulin 1.5 L (1.6-3.3) g/dL Assessment and Plan Plan: Assessment and Plan (1) Non-Hodgkin lymphoma Status: Acute Code(s): C85.90 - NON-HODGKIN LYMPHOMA, UNSPECIFIED, UNSPECIFIED SITE SNOMED Code(s): 149185527 (2) Pancytopenia due to antineoplastic chemotherapy Status: Acute Code(s): D61.810 - ANTINEOPLASTIC CHEMOTHERAPY INDUCED PANCYTOPENIA; T45.1X5A - ADVERSE EFFECT OF ANTINEOPLASTIC AND IMMUNOSUP DRUGS, INIT SNOMED Code(s): 337999290252088 Plan: Timed Chemotherapy with R-ICE Neulasta in office following chemotherapy Home medications ordered Medical Management team consulted Daily Labs Daily walks Continue Day THREE cycle 4 CHeck Urine for RBCs prior to ifos prophylaxic abx at discharge Neulasta in office on 05/14 at 3:30pm Patient may be discharged today after completion of chemotherapy
[2021-05-11] MEDS: ONDANSETRON 16 MG in SODIUM CHLORIDE 0.9% 50 ML IVPB SCH (12:40)
[2021-05-11] MEDS: FAMOTIDINE 20 MG/2 ML VIAL IV SCH (12:40)
[2021-05-11] MEDS: DEXAMETHASONE SOD PHOSPHATE 10 MG/ML 1 ML VIAL IV SCH (12:40)
[2021-05-11] MEDS: SODIUM CHLORIDE 0.9% IV SCH (13:20)
[2021-05-11] MEDS: ETOPOSIDE IV SCH (13:20)
[2021-05-11 16:28] VITALS: BP 126/82; PULSE 65; RESP 17; TEMP 97.9
--- NOTE | 2021-05-11 20:50 | P.DS ---
Providers Date of admission: 05/09/21 08:42 Expected date of discharge: 05/11/21 Attending physician: Elsieo Alcala Consults: 05/09/21 13:52 Consult Physician Routine Consulting Provider: Will Jaime Consult Reason/Comments: medical Management Do you want consulting provider notified?: Yes Primary care physician: Mike Jaime Patient Condition at Discharge: Good Plan - Discharge Summary Discharge Rx Participant: No New Discharge Prescriptions: Continue Meclizine [Antivert] 25 mg PO TID PRN PRN Reason: Vertigo Loratadine 10 mg PO DAILY L.acidoph,Paracasei, B.lactis [Probiotic] 1 cap PO DAILY Famotidine [Pepcid] 20 mg PO BID Zinc 50 mg PO DAILY Biotin 10,000 mcg PO DAILY Cyanocobalamin (Vitamin B-12) [Vitamin B-12] 1,000 mcg PO DAILY Cholecalciferol (Vitamin D3) [Vitamin D3 (5000 Iu)] 125 mcg PO DAILY Magnesium Oxide [Magox 400] 400 mg PO DAILY Acetaminophen Tab [Tylenol] 325 mg PO Q4H PRN PRN Reason: Pain Or Fever > 100.5 Discharge Medication List L.acidoph,Paracasei, B.lactis [Probiotic] 1 cap PO DAILY 07/06/19 [History] Loratadine 10 mg PO DAILY 07/06/19 [History] Meclizine [Antivert] 25 mg PO TID PRN 07/06/19 [History] Famotidine [Pepcid] 20 mg PO BID 07/28/19 [History] Acetaminophen Tab [Tylenol] 325 mg PO Q4H PRN 02/23/21 [History] Cholecalciferol (Vitamin D3) [Vitamin D3 (5000 Iu)] 125 mcg PO DAILY 02/23/21 [History] Magnesium Oxide [Magox 400] 400 mg PO DAILY 02/23/21 [History] Zinc 50 mg PO DAILY 02/23/21 [History] Biotin 10,000 mcg PO DAILY 05/09/21 [History] Cyanocobalamin (Vitamin B-12) [Vitamin B-12] 1,000 mcg PO DAILY 05/09/21 [History] Follow up Appointment(s)/Referral(s): Eliseo Alcala MD [STAFF PHYSICIAN] - 05/14/21 3:30 pm ([facility]) Discharge Disposition: HOME SELF-CARE
== END 2021-05-11 16:30 | disposition home or self-care (01) | DRG 846 ==
LOC: 5NMEDONC 08:42
PROVIDERS: ADMIT Internal Medicine Hematology & Oncology; ATTEND Internal Medicine Hematology & Oncology
DX: Z51.11 Encounter for antineoplastic chemotherapy (principal); D61.810 Antineoplastic chemotherapy induced pancytopenia; C83.38 Diffuse large B-cell lymphoma, lymph nodes of multiple sites; T45.1X5A Adverse effect of antineoplastic and immunosuppressive drugs, initial encounter; K21.9 Gastro-esophageal reflux disease without esophagitis; H91.91 Unspecified hearing loss, right ear; H26.9 Unspecified cataract; Z79.899 Other long term (current) drug therapy; Z87.39 Personal history of other diseases of the musculoskeletal system and connective tissue; Z86.69 Personal history of other diseases of the nervous system and sense organs; Z90.49 Acquired absence of other specified parts of digestive tract; Z90.710 Acquired absence of both cervix and uterus; Z90.89 Acquired absence of other organs; Z98.41 Cataract extraction status, right eye; Z96.1 Presence of intraocular lens; Z98.890 Other specified postprocedural states; Z87.891 Personal history of nicotine dependence; Z82.49 Family history of ischemic heart disease and other diseases of the circulatory system; Z82.3 Family history of stroke
CPT/HCPCS: 80053; 81003; 83615; 83735; 84100; 84550; 85025; 85610; 85730

== ENCOUNTER 2021-05-19 16:59 | Emergency (ER) | payer MEDICARE ==
--- NOTE | 2021-05-19 17:37 | ED ---
General Adult HPI - General Chief complaint: Recheck/Abnormal Lab/Rx Stated complaint: Sent from [facility] Time Seen by Provider: 05/19/21 17:11 Source: patient, RN notes reviewed, old records reviewed Mode of arrival: ambulatory Limitations: no limitations - History of Present Illness Initial comments: 70-year-old female was transferred for anemia and need of transfusion. Patient had complained of some fatigue and lightheadedness. Hemoglobin was found to be 6.5. She has a history of lymphoma and received chemotherapy on the . Outside hospital had contacted the college football coach as well as the blood bank to order blood prior to this arrival. Patient denies any current bleeding. - Related Data Home Medications Medication Instructions Recorded Confirmed L.acidoph,Paracasei, B.lactis 1 cap PO DAILY 07/06/19 05/19/21 [Probiotic] Loratadine 10 mg PO DAILY 07/06/19 05/19/21 Meclizine [Antivert] 25 mg PO TID PRN 07/06/19 05/19/21 Famotidine [Pepcid] 20 mg PO BID 07/28/19 05/19/21 Acetaminophen Tab [Tylenol] 325 mg PO Q4H PRN 02/23/21 05/19/21 Cholecalciferol (Vitamin D3) 125 mcg PO DAILY 02/23/21 05/19/21 [Vitamin D3 (5000 Iu)] Magnesium Oxide [Magox 400] 400 mg PO DAILY 02/23/21 05/19/21 Zinc 50 mg PO DAILY 02/23/21 05/19/21 Biotin 10,000 mcg PO DAILY 05/09/21 05/19/21 Cyanocobalamin (Vitamin B-12) 1,000 mcg PO DAILY 05/09/21 05/19/21 [Vitamin B-12] Allergies Allergy/AdvReac Type Severity Reaction Status Date / Time No Known Allergies Allergy Verified 05/19/21 17:26 Review of Systems ROS Statement: Those systems with pertinent positive or pertinent negative responses have been documented in the HPI. ROS Other: All systems not noted in ROS Statement are negative. 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 Other hx: vertigo, sinus problems, cataract L eye, deaf R ear. History of Any Multi-Drug Resistant Organisms: None Reported Past Surgical History: Appendectomy, Hysterectomy, Tonsillectomy Additional Past Surgical History / Comment(s): excisional biopsy above R clavicle/R thigh mass, 02/06/21 R mandible biopsty, R cataract removal/lens implant, bilateral eye surgery for retinal tear. Past Anesthesia/Blood Transfusion Reactions: No Reported Reaction Additional Past Anesthesia/Blood Transfusion Reaction / Comment(s): Pt has received blood in past without reaction. Past Psychological History: No Psychological Hx Reported Smoking Status: Former smoker Past Alcohol Use History: None Reported Past Drug Use History: None Reported - Past Family History Father Family Medical History: Coronary Artery Disease (CAD), CVA/TIA Additional Family Medical History / Comment(s): Disease at age of 70 Mother Family Medical History: No Reported History, Coronary Artery Disease (CAD) Brother(s) Family Medical History: No Reported History Sister(s) Family Medical History: No Reported History General Exam Limitations: no limitations General appearance: alert, in no apparent distress Head exam: Present: atraumatic, normocephalic Eye exam: Present: normal appearance, PERRL ENT exam: Present: normal exam Neck exam: Present: normal inspection. Absent: tenderness, meningismus Respiratory exam: Present: normal lung sounds bilaterally. Absent: respiratory distress Cardiovascular Exam: Present: regular rate, normal rhythm GI/Abdominal exam: Present: soft. Absent: distended, tenderness, guarding Extremities exam: Present: normal inspection, normal capillary refill. Absent: pedal edema Neurological exam: Present: alert, oriented X3, CN II-XII intact. Absent: motor sensory deficit Psychiatric exam: Present: normal affect, normal mood Skin exam: Present: warm, dry, pallor Course Vital Signs 05/19/21 05/19/21 05/19/21 17:00 19:30 19:40 Temperature 97.7 F 97.9 F 98.0 F Pulse Rate 85 84 84 Respiratory 16 16 18 Rate Blood Pressure 144/85 113/66 110/52 O2 Sat by Pulse 99 98 Oximetry - Reevaluation(s) Reevaluation #1: 05/19/21 17:37 I did discuss the need for transfusion with the blood bank were indicated that the blood had been ordered. Patient will be transfused 2 units of irradiated blood. Reevaluation #2: 05/19/21 17:56 I did discuss case with Dr. Alcala recommends transfusing 1 unit of irradiated packed RBCs. Medical Decision Making - Medical Decision Making 70-year-old female with lymphoma presenting as a transfer with anemia and need for irradiated RBCs. I discussed case with Dr. Diez who is familiar with the patient. One unit of irradiated packed RBCs been ordered. Patient transfused in the emergency department and is eager for discharge. She is leukopenic. She has no fever. No infectious complaints. - Lab Data Result diagrams: 05/19/21 18:21 05/19/21 18:21 Lab Results 05/19/21 05/19/21 05/19/21 Range/Units 18:21 18:21 18:21 WBC 0.7 L* (3.8-10.6) k/uL RBC 1.93 L (3.80-5.40) m/uL Hgb 7.0 L D (11.4-16.0) gm/dL Hct 20.1 L (34.0-46.0) % MCV 104.1 H D (80.0-100.0) fL MCH 36.3 H (25.0-35.0) pg MCHC 34.9 (31.0-37.0) g/dL RDW 18.3 H (11.5-15.5) % Plt Count 21 L D (150-450) k/uL MPV 9.1 Differential Comment Manual Slide Review Performed Anisocytosis Slight Macrocytosis Moderate PT 10.0 (9.0-12.0) sec INR 0.9 (<1.2) APTT 22.2 (22.0-30.0) sec Sodium 136 L (137-145) mmol/L Potassium 3.1 L (3.5-5.1) mmol/L Chloride 107 (98-107) mmol/L Carbon Dioxide 22 (22-30) mmol/L Anion Gap 7 mmol/L BUN 16 (7-17) mg/dL Creatinine 0.44 L (0.52-1.04) mg/dL Est GFR (CKD-EPI)AfAm >90 (>60 ml/min/1.73 sqM) Est GFR (CKD-EPI)NonAf >90 (>60 ml/min/1.73 sqM) Glucose 88 (74-99) mg/dL Calcium 8.6 (8.4-10.2) mg/dL Total Bilirubin 0.9 (0.2-1.3) mg/dL AST 28 (14-36) U/L ALT 45 H (4-34) U/L Alkaline Phosphatase 148 H (38-126) U/L Total Protein 5.6 L (6.3-8.2) g/dL Albumin 3.6 (3.5-5.0) g/dL Blood Type Blood Type Recheck Bld Type Recheck Status Antibody Screen Crossmatch Spec Expiration Date 05/19/21 Range/Units 18:21 WBC (3.8-10.6) k/uL RBC (3.80-5.40) m/uL Hgb (11.4-16.0) gm/dL Hct (34.0-46.0) % MCV (80.0-100.0) fL MCH (25.0-35.0) pg MCHC (31.0-37.0) g/dL RDW (11.5-15.5) % Plt Count (150-450) k/uL MPV Differential Comment Manual Slide Review Anisocytosis Macrocytosis PT (9.0-12.0) sec INR (<1.2) APTT (22.0-30.0) sec Sodium (137-145) mmol/L Potassium (3.5-5.1) mmol/L Chloride (98-107) mmol/L Carbon Dioxide (22-30) mmol/L Anion Gap mmol/L BUN (7-17) mg/dL Creatinine (0.52-1.04) mg/dL Est GFR (CKD-EPI)AfAm (>60 ml/min/1.73 sqM) Est GFR (CKD-EPI)NonAf (>60 ml/min/1.73 sqM) Glucose (74-99) mg/dL Calcium (8.4-10.2) mg/dL Total Bilirubin (0.2-1.3) mg/dL AST (14-36) U/L ALT (4-34) U/L Alkaline Phosphatase (38-126) U/L Total Protein (6.3-8.2) g/dL Albumin (3.5-5.0) g/dL Blood Type O Positive Blood Type Recheck O Pos Bld Type Recheck Status No Antibody Screen NEGATIVE Crossmatch See Detail Spec Expiration Date 05/22/20212320 Disposition Clinical Impression: Pancytopenia, Symptomatic anemia Disposition: HOME SELF-CARE Condition: Fair Instructions (If sedation given, give patient instructions): Pancytopenia (DC), Anemia (ED) Is patient prescribed a controlled substance at d/c from ED?: No Referrals: Mike Jaime MD [Primary Care Provider] - 1-2 days Eliseo Alcala MD [STAFF PHYSICIAN] - 1-2 days Time of Disposition: 19:57
[2021-05-19 18:43] LABS: ALT 45 U/L (4-34); AST 28 U/L (14-36); African American GFR (CKD) >90 (>60 ml/min/1.73 sqM); Albumin 3.6 g/dL (3.5-5.0); Alkaline Phosphatase 148 U/L (38-126); Anion Gap 7 mmol/L; Blood Urea Nitrogen 16 mg/dL (7-17); Calcium 8.6 mg/dL (8.4-10.2); Carbon Dioxide 22 mmol/L (22-30); Chloride 107 mmol/L (98-107); Glucose 88 mg/dL (74-99); Non-African American GFR(CKD) >90 (>60 ml/min/1.73 sqM); Potassium 3.1 mmol/L (3.5-5.1); Sodium 136 mmol/L (137-145); Total Bilirubin 0.9 mg/dL (0.2-1.3); Total Protein 5.6 g/dL (6.3-8.2)
[2021-05-19 18:44] LABS: Anisocytosis Slight; HCT 20.1 % (34.0-46.0); MCH 36.3 pg (25.0-35.0); MCHC 34.9 g/dL (31.0-37.0); Macrocytosis Moderate; Mean Platelet Volume 9.1; RBC 1.93 m/uL (3.80-5.40); RDW 18.3 % (11.5-15.5)
[2021-05-19 18:45] LABS: MCV 104.1 fL (80.0-100.0)
[2021-05-19 18:46] LABS: Platelet Count 21 k/uL (150-450)
[2021-05-19 18:48] LABS: WBC 0.7 k/uL (3.8-10.6)
[2021-05-19 18:53] LABS: INR 0.9 (<1.2); Partial Thromboplastin Time 22.2 sec (22.0-30.0)
[2021-05-19 19:42] VITALS: RESP 18
[2021-05-19 23:04] VITALS: BP 105/62; TEMP 97.4
[2021-05-19 23:33] VITALS: PULSE 73
== END 2021-05-19 23:22 | disposition home or self-care (01) ==
LOC: EC 16:59
DX: D61.818 Other pancytopenia (principal); D64.9 Anemia, unspecified; H91.91 Unspecified hearing loss, right ear; K21.9 Gastro-esophageal reflux disease without esophagitis; Z79.899 Other long term (current) drug therapy; Z87.891 Personal history of nicotine dependence
CPT/HCPCS: 36415; 86900; 86901; 80053; 85025; 85610; 85730; 86850; 86920; 99284; P9040

== ENCOUNTER → 2021-07-03 | Outpatient (CLI) | payer MEDICARE ==
--- NOTE | 2021-07-04 14:01 | MM ---
Reason for exam: screening (asymptomatic). Last mammogram was performed 1 year ago. History: Patient is postmenopausal and has history of other cancer at age 69. Family history of breast cancer in paternal aunt. Took estrogen for 13 years. Physical Findings: A clinical breast exam by your physician is recommended on an annual basis and results should be correlated with mammographic findings. MG 3D Screening Mammo W/Cad Bilateral CC and MLO view(s) were taken. XCCL view(s) were taken of the left breast. Prior study comparison: June 23, 2020, bilateral MG 3d screening mammo w/cad. June 24, 2018, bilateral MG 3d screening mammo w/cad. April 23, 2017, bilateral MG 3d screening mammo w/cad. There are scattered fibroglandular densities. No significant changes when compared with prior studies. ASSESSMENT: Benign, BI-RAD 2 RECOMMENDATION: Routine screening mammogram of both breasts in 1 year.
== END | disposition home or self-care (01) ==
LOC: RADMAMWWP 14:39
PROVIDERS: ATTEND Family Medicine
DX: Z12.31 Encounter for screening mammogram for malignant neoplasm of breast (principal)
CPT/HCPCS: 77063; 77067

== ENCOUNTER → 2022-04-16 | Outpatient (CLI) | payer MEDICARE | END | disposition home or self-care (01) | LOC: LABWHC1 14:36 | PROVIDERS: ATTEND Radiology Neuroradiology | DX: Z20.822 Contact with and (suspected) exposure to COVID-19 (principal) ==